=== PATIENT | female | born 1950 | race Caucasian/White ===

== ENCOUNTER → 2020-08-03 14:05 | Outpatient (CLI) | payer MEDICARE, BC, SELFPAY ==
--- NOTE | ~2020-08-03 | MM_ITS ---
EXAMINATION: MM screening bertha BI w stephanie HISTORY: Screening TECHNIQUE: Craniocaudal and mediolateral oblique 3-D tomosynthesis images were obtained and synthetic 2-D images were generated. CAD analysis was submitted and interpreted. COMPARISON: Comparison to multiple prior studies sequentially, with oldest reviewed study dated 04/11. BREAST PARENCHYMAL COMPOSITION: The breasts are almost entirely fatty. FINDINGS: There is no evidence of suspicious mass, calcification, or architectural distortion to sugg est malignancy in either breast. There has been no suspicious interval change. IMPRESSION: 1. No mammographic evidence of malignancy. 2. Recommend routine screening mammography in one year. BI-RADS Category 1: Negative Reviewed, dictated and finalized at location A. EXPORT LOGISTICS MANAGER
== END ==
PROVIDERS: Visit Provider Obstetrics & Gynecology Gynecology
DX: Z12.31 Encounter for screening mammogram for malignant neoplasm of breast (principal)
CPT/HCPCS: 77063; 77067

== ENCOUNTER → 2021-01-13 14:18 | Outpatient (CLI) | payer MEDICARE, BC, SELFPAY ==
--- NOTE | ~2021-01-13 | XR_ITS ---
XR lumbar spine 2-3V DATE: 01/13/2021 15:04 INDICATION: Back pain TECHNIQUE: AP, lateral, coned lateral lumbosacral views COMPARISON: None FINDINGS: Diffuse osteopenia. No fracture or bone destruction of the lumbar spine. There is moderately severe degenerative disc disease at L2-3, L3-4 and moderate degenerative disc dis ease at L4-5 and L5-S1. Grade 1 anterolisthesis at L3-4 due to degenerative change at the apophyseal joints. The sacroiliac joints appear normal. IMPRESSION: Osteopenia Multilevel degenerative disc disease Degenerative change at the apophyseal joints with associated minimal anterolisthesis at L3-4 Reviewed, dictated and finalized at location B. IMPRESSION: Osteopenia Multilevel degenerative disc disease Degenerative change at the apophyseal joints with associated minimal anterolist hesis at L3-4
--- NOTE | ~2021-01-13 | XR_ITS ---
XR chest 2V DATE: 01/13/2021 15:04 INDICATION: Cough TECHNIQUE: PA and lateral views COMPARISON: 06/13/2017 PA and lateral chest FINDINGS: Normal heart size. No hilar or mediastinal enlargement. No pulmonary infiltrate or consolidation, pleural effusion or pulmonary vascular congestion or pneumo thorax. There is mild discoid scarring in the anterior lower lung on the lateral view, not significantly meng ged since 06/13/2017. IMPRESSION: No active cardiopulmonary disease or significant change since 06/13/2017 Reviewed, dictated and finalized at location B.
== END ==
PROVIDERS: PCP Family Medicine; Visit Provider Physician Assistant
DX: R05 Cough (principal); M47.816 Spondylosis without myelopathy or radiculopathy, lumbar region
CPT/HCPCS: 71046; 72100

== ENCOUNTER → 2021-03-29 13:07 | Outpatient (CLI) | payer MEDICARE, BC, SELFPAY ==
--- NOTE | ~2021-03-29 | MR_ITS ---
EXAMINATION: MR lumbar spine wo con DATE: 03/29/2021 14:22 INDICATION: Sciatica, unspecified side. Low back pain. TECHNIQUE: Magnetic resonance imaging (MRI) of the lumbar spine was performed without intravenous con trast. Sequences included sagittal T2-weighted FSE, sagittal T2-weighted FS FSE, sagittal T1-weighted FSE, and axial T2-weighted FSE. COMPARISON: Lumbar spine MRI 04/10/2011 FINDINGS: Bone alignment is normal. Vertebral body heights are normal. There is severely decreased di sc height at L2-L3, moderately decreased disc height at L3-L4 and L4-L5, and severely decreased disc height at L5-S1 with endplate remodeling. There is ligamentum flavum hypertrophy at the disc levels f rom L2-L3 through L5-S1. The distal spinal cord signal intensity is normal. The conus medullaris is a t L1-L2. The following disc levels are specifically discussed: L1-L2: The disc does not extend beyond the endplate margin. There is mild bilateral facet joint osteo arthritis. There is no neural foraminal stenosis. There is no central canal stenosis. L2-L3: The disc is bulging and has an annular fissure. There is severe right and moderate left facet joint osteoarthritis. There is mild bilateral neural foraminal stenosis. There is mild central canal stenosis. L3-L4: The disc is bulging and has an annular fissure. There is severe bilateral facet joint osteoart hritis. There is mild bilateral neural foraminal stenosis. There is mild central canal stenosis. L4-L5: The disc is bulging and has an annular fissure. There is severe bilateral facet joint osteoart hritis. There is mild bilateral neural foraminal stenosis. There is mild central canal stenosis. L5-S1: The disc is bulging and has an annular fissure. There is severe bilateral facet joint osteoart hritis. There is mild right and moderate left neural foraminal stenosis. There is mild central canal stenosis. There is moderate stenosis of the lateral recesses. IMPRESSION: 1. Severe lumbar spondylosis, worsened from 04/10/2011. Reviewed, dictated and finalized at location A.
== END ==
PROVIDERS: PCP Family Medicine; Visit Provider Family Medicine
DX: M54.30 Sciatica, unspecified side (principal); M47.896 Other spondylosis, lumbar region
CPT/HCPCS: 72148

== ENCOUNTER → 2021-06-23 13:24 | Outpatient (CLI) | payer MEDICARE, BC, SELFPAY ==
--- NOTE | ~2021-06-23 | DEXA_ITS ---
Bone Density Report Name: Cuca More Age: 70 Sex: Female Ethnicity: White Date of : 1950 Indication: osteopenia; parental hip fracture; height loss; prior fracture; postmenopausal Referring Provider: Priyank Bansal Study: Bone densitometry was performed. Exam Date: June 23, 2021 Accession number: [id number] Bone Density: Region BMD T-score Z-score Classification AP Spine (L1, L4) 0.821 -2.0 0.2 Osteopenia Femoral Neck (Left) 0.642 -1.9 0.0 Osteopenia Total Hip (Left) 0.937 0.0 1.5 Normal Femoral Neck (Right) 0.673 -1.6 0.3 Osteopenia Total Hip (Right) 0.923 -0.2 1.4 Normal Total Hip Mean 0.930 -0.1 1.5 Normal World Health Organization criteria for BMD impression classify patients as: Normal (T-score at or above -1.0), Osteopenia (T-score between -1.0 and -2.5), or Osteoporosis (T-score at or below -2.5). 10-year Fracture Risk(1): Major Osteoporotic Fracture 26% Hip Fracture 7.0% Reported Risk Factors: [place] (), Neck BMD=0.642, BMI=30.9, previous fracture, parental fracture (1) FRAX(R) Version 3.08. Fracture probability calculated for an untreated patient. Fracture probability may be lower if the patient has received treatment. Previous Exams: Region Exam Age BMD T-score BMD Change BMD Change Date g/cm2 vs Baseline vs Previous AP Spine(L1, L4) 06/23/2021 70 0.821 -2.0 -0.119* -0.064* 06/19/2019 68 0.885 -1.4 -0.055* -0.045* 05/16/2017 66 0.930 -1.0 -0.010 0.028* 03/02/2015 64 0.902 -1.2 -0.038* 0.061* 01/03/2013 62 0.841 -1.8 -0.099* -0.008 09/02/2010 60 0.849 -1.7 -0.091* -0.033* 07/24/2007 56 0.882 -1.4 -0.059* -0.059* 06/16/2005 54 0.940 -0.9 Total Hip(Left) 06/23/2021 70 0.937 0.0 -0.071* 0.038* 06/19/2019 68 0.899 -0.3 -0.109* -0.001 05/16/2017 66 0.900 -0.3 -0.108* -0.071* 03/02/2015 64 0.971 0.2 -0.037* 0.100* 01/03/2013 62 0.870 -0.6 -0.138* 0.004 09/02/2010 60 0.867 -0.6 -0.141* 0.036* 07/24/2007 56 0.831 -0.9 -0.177* -0.177* 06/16/2005 54 1.008 0.5 Total Hip(Right) 06/23/2021 70 0.923 -0.2 -0.053* 0.032* 06/19/2019 68 0.891 -0.4 -0.085* -0.033* 05/16/2017 66 0.924 -0.2 -0.052* -0.039* 03/02/2015 64 0.962 0.2 -0.013 0.108* 01/03/2013 62 0.855 -0.7 -0.121* -0.037* 09/02/2010 60 0.891
== END ==
PROVIDERS: PCP Family Medicine; Visit Provider Family Medicine
DX: Z78.0 Asymptomatic menopausal state (principal); M85.88 Other specified disorders of bone density and structure, other site; M85.852 Other specified disorders of bone density and structure, left thigh; M85.851 Other specified disorders of bone density and structure, right thigh
CPT/HCPCS: 77080

== ENCOUNTER → 2021-12-02 12:59 | Outpatient (CLI) | payer MEDICARE, BC, SELFPAY ==
--- NOTE | ~2021-12-02 | MM_ITS ---
EXAMINATION: MM screening bertha BI w stephanie HISTORY: Screening TECHNIQUE: Craniocaudal and mediolateral oblique 3-D tomosynthesis images were obtained and synthetic 2-D images were generated. CAD analysis was submitted and interpreted. COMPARISON: Comparison to multiple prior studies sequentially, with oldest reviewed study dated 04/11. BREAST PARENCHYMAL COMPOSITION: Breast composition is almost entirely fatty FINDINGS: There is no evidence of suspicious mass, calcification, or architectural distortion to sugg est malignancy in either breast. There has been no suspicious interval change. IMPRESSION: 1. No mammographic evidence of malignancy. 2. Recommend routine screening mammography in one year. BI-RADS Category 1: Negative Reviewed, dictated and finalized at location A.
== END ==
PROVIDERS: PCP Family Medicine; Visit Provider Obstetrics & Gynecology Gynecology
DX: Z12.31 Encounter for screening mammogram for malignant neoplasm of breast (principal)
CPT/HCPCS: 77063; 77067

== ENCOUNTER 2022-04-05 01:36 | Day surgery (SDC) | payer MEDICARE, BC, SELFPAY ==
[2022-01-30 13:55] VITALS: BMI 29.1
[2022-03-20 15:11] VITALS: BMI 28.3
[2022-04-05 09:19] VITALS: BP 121/72; PULSE 88; RESP 18; TEMP 36.4; O2SAT 100
[2022-04-05] MEDS: LACTATED RINGERS 1,000 ML 150 ML IV CONT (09:25)
--- NOTE | 2022-04-05 09:41 | PM.HPGS ---
History of Present Illness History of Present Illness Consent: Risks, benefits, and alternatives have been discussed and questions answered. Patient agrees to proceed with procedure. Chief complaint: neoplasm screening Narrative: Cuca More is a 71 year old female referred for colon cancer screening. Her last colonoscopy was 9 years ago. She has a history of polyps. Review of Systems Review of Systems: All systems reviewed & are unremarkable except as noted in HPI and below PMFSH Past Medical History Medical History Acute left-sided low back pain with sciatica ETD (eustachian tube dysfunction) Mild cognitive impairment Status post fall Family History Family History Father Carcinoma of colon Other Family history of malignant neoplasm Social History Social History Social History: Single Smoking status: Never smoker Second hand tobacco smoke exposure: No Alcohol intake: current Alcohol use details: rarely Substance use: never Substance use type: does not use Living arrangements: alone Gender identity (if verbalized by the patient): Female Sexual Orientation (if Verbalized by the Patient): Straight or Heterosexual Spiritual care concerns: No Meds Home Medications and Allergies Home Medications Medication Instructions Recorded Confirmed Type levothyroxine 50 mcg tablet 50 mcg PO QAM #1 tablet 02/02/20 03/20/22 Rx (Euthyrox) alendronate 70 mg tablet 70 mg PO WEEKLY #1 tablet 10/26/21 03/20/22 Rx cholecalciferol (vitamin D3) 1,250 1,250 mcg PO WEEKLY #7 caps 10/26/21 03/20/22 Rx mcg (50,000 unit) capsule escitalopram oxalate 10 mg tablet 10 mg PO DAILY #90 tabs 12/05/21 03/20/22 Rx (Lexapro) atorvastatin 10 mg tablet 10 mg PO DAILY #30 tabs 02/28/22 03/20/22 Rx cyclobenzaprine 10 mg tablet See Rx Instructions .Route 03/15/22 03/20/22 Rx .COMPLEX #20 tabs donepezil 5 mg tablet (Aricept) 5 mg PO QHS #30 tabs 03/22/22 04/05/22 Rx Allergies Allergy/AdvReac Type Severity Reaction Status Date / Time No Known Allergies Allergy Verified 04/05/22 09:18 Vital Signs Vital Signs - 24 hr 04/05/22 09:19 Temperature 36.4 C Pulse Rate 88 Respiratory Rate 18 Blood Pressure 121/72 Pulse Oximetry 100 Oxygen Delivery Room Air Exam Const: General: alert Orientation/consciousness: patient oriented x3 Resp: Auscultation: clear to auscultation bilaterally Cardio: Rhythm: regular rhythm GI: GI Palp: Yes Soft to palpation and No Tenderness to palpation present (GI) Neuro: General: patient oriented x3 Assessment and Plan Assessment and plan (1) Colon cancer screening: Code(s): Z12.11 - Encounter for screening for malignant neoplasm of colon Status: Acute Assessment and Plan: Colonoscopy with possible biopsy or polypectomy or cautery or injection of substances.
--- NOTE | 2022-04-05 11:05 | P.PNAN_ITS ---
Anes - Initial Pre Proc Eval Procedure: Operation Date: 04/05/22 10:30 Proposed Procedures p Screening Colonoscopy - Matias Zamarripa MD Date/Time: 04/05/22 11:05 Surgeon: Matias Zamarripa MD Pre Op Diagnosis: neoplasm screening Patient Data Age: 71 Gender: F Height: 1.57 m Weight: 69.8 kg Last Vital Signs Temp 97.6 F 04/05/22 09:19 Pulse 88 04/05/22 09:19 Resp 18 04/05/22 09:19 BP 121/72 04/05/22 09:19 Pulse Ox 100 04/05/22 09:19 O2 Del Method Room Air 04/05/22 09:19 Allergies Allergy/AdvReac Type Severity Reaction Status Date / Time No Known Allergies Allergy Verified 04/05/22 09:18 Home Medications Medication Instructions Recorded Confirmed Type levothyroxine 50 mcg tablet 50 mcg PO QAM #1 tablet 02/02/20 03/20/22 Rx (Euthyrox) alendronate 70 mg tablet 70 mg PO WEEKLY #1 tablet 10/26/21 03/20/22 Rx cholecalciferol (vitamin D3) 1,250 1,250 mcg PO WEEKLY #7 caps 10/26/21 03/20/22 Rx mcg (50,000 unit) capsule escitalopram oxalate 10 mg tablet 10 mg PO DAILY #90 tabs 12/05/21 03/20/22 Rx (Lexapro) atorvastatin 10 mg tablet 10 mg PO DAILY #30 tabs 02/28/22 03/20/22 Rx cyclobenzaprine 10 mg tablet See Rx Instructions .Route 03/15/22 03/20/22 Rx .COMPLEX #20 tabs donepezil 5 mg tablet (Aricept) 5 mg PO QHS #30 tabs 03/22/22 04/05/22 Rx Patient hx anesthesia problems: none Family hx anesthesia problems: none Results Review: All pre-operative results and documents have been reviewed as part of the pre- operative evaluation. [facility] Past Medical History Medical History Acute left-sided low back pain with sciatica ETD (eustachian tube dysfunction) Mild cognitive impairment Status post fall Family History Family History Father Carcinoma of colon Other Family history of malignant neoplasm Social History Social History Social History: Single Smoking status: Never smoker Second hand tobacco smoke exposure: No Alcohol intake: current Alcohol use details: rarely Substance use: never Substance use type: does not use Living arrangements: alone Gender identity (if verbalized by the patient): Female Sexual Orientation (if Verbalized by the Patient): Straight or Heterosexual Spiritual care concerns: No Anes - Eval Final PreProcedure Day of Procedure 04/05/22 11:05 Patient weight: normal Heart: regular rate and rhythm Lungs: clear to auscultation Airway: Mallampati scale class II Neurological: alert and oriented Last oral intake: >/= 8 hours ASA classification: II Emergent: no Anesthetic plan: proceed Anesthesia type and monitoring: general GIVS and standard monitoring Results Review: All pre-operative results and documents have been reviewed as part of the pre- operative evaluation. Informed Consent: The patient's anesthetic plan and its attendant risks and benefits were discussed with the patient/family/POA. Questions were solicited and answers provided to the satisfaction of the patient/family/POA.
[2022-04-05] MEDS: SIMETHICONE ORAL SUSPENSION 20 MG/0.3 ML 30 ML BOTTLE 0.6 ML IRRIGATION (11:17)
[2022-04-05 11:26] VITALS: BP 109/87; PULSE 81; RESP 18; O2SAT 99
[2022-04-05 11:36] VITALS: BP 115/89; PULSE 80; RESP 17; O2SAT 99
[2022-04-05 11:46] VITALS: BP 118/89; PULSE 79; RESP 18; O2SAT 99
== END 2022-04-05 12:03 | disposition home or self-care (01) ==
PROVIDERS: PCP Family Medicine; Visit Provider Internal Medicine Gastroenterology
PROC: 0DJD8ZZ Inspection of Lower Intestinal Tract, Via Natural or Artificial Opening Endoscopic (ICD-10-PCS; CPT 45378; principal; 2022-04-05 10:30)
DX: Z12.11 Encounter for screening for malignant neoplasm of colon (principal); K57.30 Diverticulosis of large intestine without perforation or abscess without bleeding
CPT/HCPCS: G0121; J2704; J7120

== ENCOUNTER 2023-01-03 14:41 | Outpatient (CLI) | payer MEDICARE, BC, SELFPAY ==
--- NOTE | ~2023-01-03 | CT_ITS ---
EXAMINATION: CT abdomen pelvis wo con DATE: 01/03/2023 15:12 INDICATION: Lower abdominal pain. Rebound tenderness. TECHNIQUE: Computed tomography (CT) of the abdomen and pelvis was performed without intravenous contr ast. The dose-length product was 351.24 mGy-cm. Automated exposure control and iterative reconstructi on technique were employed. COMPARISON: CT dated 10/03/2011 FINDINGS: Lung bases are unremarkable. Heart size normal. No significant pleural or pericardial effus ion. There is a fat-containing umbilical hernia. The liver, spleen, pancreas, adrenal glands and left kidney are unremarkable. There is a 3 mm nonobstructing right renal stone. Colonic diverticulosis. T here is inflammatory change surrounding the distal sigmoid colon with adjacent fluid, suspicious for diverticulitis. There is a small focus of gas in the cul-de-sac which may be extraluminal, suspicious for perforation. No cannot exclude abscess formation without contrast. IMPRESSION: 1. Inflammatory change surrounding the distal sigmoid colon with adjacent fluid, suspicious for diver ticulitis. Small focus of gas in the cul-de-sac which may be extraluminal, suspicious for perforation . No cannot exclude abscess formation without contrast. 2: Nonobstructing right nephrolithiasis. Reviewed, dictated and finalized at location B. IMPRESSION: 1. Inflammatory change surrounding the distal sigmoid colon with adjacent fluid , suspicious for diverticulitis. Small focus of gas in the cul-de-sac which may be extraluminal, suspicious for perforation. No cannot exclude abscess formati on without contrast. 2: Nonobstructing right nephrolithiasis.
== END 2023-01-03 14:42 | disposition home or self-care (01) ==
PROVIDERS: PCP Family Medicine; Visit Provider Physician Assistant
DX: R10.30 Lower abdominal pain, unspecified (principal); N20.0 Calculus of kidney
CPT/HCPCS: 74176

== ENCOUNTER 2023-01-15 12:48 | Outpatient (CLI) | payer MEDICARE, BC, SELFPAY ==
--- NOTE | ~2023-01-15 | CT_ITS ---
EXAMINATION: CT abdomen pelvis w con DATE: 01/15/2023 13:20 INDICATION: Diverticulitis of intestine, part unspecified. TECHNIQUE: Computed tomography (CT) of the abdomen and pelvis was performed with 100 mL Omnipaque 350 intravenous contrast. Automated exposure control and iterative reconstruction technique were employe d. The dose-length product was 465.78 mGy-cm. COMPARISON: CT abdomen and pelvis 01/03/2023 FINDINGS: The visualized portions of the lung bases demonstrate mild atelectasis. A calcified left suman ng nodule and calcified left hilar lymph nodes are consistent with old granulomatous disease. No pleu ral effusion. The heart size is normal. No pericardial effusion. The liver, gallbladder, spleen, panc reas, and adrenal glands are normal. There is a 3 mm stone in right kidney. There is a 7 mm cyst in l eft kidney. There are scattered diverticula in the colon. There is wall thickening of sigmoid colon w ith surrounding fat stranding. There is a 6.9 x 2.8 x 3.3 cm perisigmoid abscess. There are no pathol ogically enlarged lymph nodes. There is no free intraperitoneal fluid. There is severe thoracic and l umbar spondylosis. IMPRESSION: 1. Sigmoid diverticulitis with 6.9 x 2.8 x 3.3 cm perisigmoid abscess. Reviewed, dictated and finalized at location A.
[2023-01-15 13:15] LABS: Estimated Glomerular Filt Rate 49
== END 2023-01-15 12:49 | disposition home or self-care (01) ==
PROVIDERS: PCP Family Medicine; Visit Provider Physician Assistant
DX: K57.32 Diverticulitis of large intestine without perforation or abscess without bleeding (principal)
CPT/HCPCS: 74177; Q9967

== ENCOUNTER 2023-01-16 13:55 | Inpatient (IN) | payer MEDICARE, BC, SELFPAY ==
--- NOTE | ~2023-01-16 | CT_ITS ---
EXAMINATION: CT guide absc cath placement DATE: 01/17/2023 14:14 INDICATION: Sigmoid diverticulitis with intraperitoneal abscess TECHNIQUE: The procedure including the risks and benefits was discussed with the patient. Risks discu ssed included bleeding, infection, organ injury and allergic reaction. The patient understood the ris ks and benefits and agreed to proceed. The patient was confirmed to be receiving appropriate antibiot ic coverage. [employer] CT image of the pelvis was obtained following administration of 100 mL Omnipaque-3 50 intravenous contrast. A left anterior pelvic approach was chosen. The skin overlying the anterior left pelvis was prepped and draped in usual sterile fashion. Anesthetic was administered with 1% lid ocaine subcutaneously. Conscious sedation was provided with a total of 100 mcg fentanyl. An 18-gauge trochar needle was advanced into the fluid collection utilizing CT guidance. A J-wire was advanced in to the fluid collection with position confirmed by CT . Utilizing Seldinger technique the needle was removed over the wire and the tract serially dilated to 9 Fr. An 8.5 Fr catheter was over the wire in serted into the peritoneal fluid collection and the loop formed and locked. After confirmation of pos itioning by CT the wire was removed and the catheter stitched to the skin. Antibiotic appointment and a sterile dressing were applied. An additional adhesive fixation device was applied. 20 mm of fluid was aspirated for testing and the catheter was then attached to suction drainage. There were no immed iate complications. The dose-length product was 1087.15 mGy-cm. FINDINGS: CT images demonstrate the catheter within the fluid collection. 20 mL of opaque purulent ap pearing gunn-colored fluid was aspirated for testing. IMPRESSION: 1. Successful CT-guided pelvic abscess drainage. 2. 20 mL fluid was sent for aerobic and anaerobic cultures. 3. The catheter will be managed by Dr. Benavides. Reviewed, dictated and finalized at location A.
[2023-01-16 15:36] VITALS: BP 108/58; PULSE 91; RESP 16; TEMP 37.2; O2SAT 98
--- NOTE | 2023-01-16 15:43 | ADMGEN ---
This patient, Cuca More, was admitted to 2 Medical Room 257-01. Patient/family oriented to hospital policies and general routines including ID bracelet, bed and alarms, visiting hours, pain management, procedures, bathroom and other care routines, personal items, smoking policy, room service/diet, and visiting hours. Information on how to activate the Rapid Response Team has been discussed. Patient/Family are encouraged to report perceived risks to care and to ask questions if they do not understand what they are told or what they should do.
--- NOTE | 2023-01-16 15:45 | PM.CNGS ---
Assessment and Plan Assessment and plan (1) Abscess of sigmoid colon due to diverticulitis: Code(s): K57.20 - Diverticulitis of large intestine with perforation and abscess without bleeding Status: Acute Assessment and Plan: will setup for CT guided perc drainage, cont abx History of Present Illness Consult details Consult date: 01/16/23 Reason for consult: abdominal pain Requesting physician: Bill Ledesma MD Narrative: The patient is a 72-year-old female presenting to the hospital with complicated diverticulitis and abscess. The patient reports that her symptoms started on January [address] scan at that time showed diverticulitis with micro perforation. The patient has been being treated with outpatient p.o. antibiotics. The patient reports compliance to or antibiotics so though they upset her stomach so she switched the antibiotics to once daily. The patient reports her pain is largely unchanged and is more intermittent in nature. The patient reports decreased appetite and constipation. The patient denies any fevers or chills, nausea or vomiting. Repeat by her PCP today showed diverticulitis with now an adjacent abscess. Review of Systems Constitutional: Constitutional: Reports as per HPI, Denies anorexia, Denies chills, Reports fatigue, Denies fever(s), Reports lethargy, Denies malaise, Reports poor appetite, Denies weakness, Denies weight gain and Denies weight loss Eyes: Eyes: Reports no additional eye complaints ENT: Reports system reviewed and no additional complaints, except as documented Cardiovascular: Cardiovascular: Reports no additional cardiovascular complaints Respiratory: Respiratory: Reports no additional respiratory complaints Gastrointestinal: Gastrointestinal: Reports as per HPI, Reports abdominal pain, Reports bloating, Reports change in bowel habits, Reports constipation, Reports GI cramping, Denies nausea and Denies vomiting Genitourinary: Genitourinary: Reports no additional female genitourinary complaints Musculoskeletal: Musculoskeletal: Reports no additional musculoskeletal complaints Integumentary/Breasts: Skin/Breast: Reports system reviewed and no additional complaints, except as docu Neurologic: Reports system reviewed and no additional complaints, except as documented Psychiatric: Psychiatric: Reports no additional psychiatric complaints Endocrine: Endocrine: Reports no additional endocrine complaints Hematologic/Lymphatic: Hematologic/Lymphatic: Reports no additional hematologic/lymphatic complaints Allergic/Immunologic: Allergic/Immunologic: Reports no additional allergic/immunologic complaints PMFSH Past Medical History Medical History Acute left-sided low back pain with sciatica Depression ETD (eustachian tube dysfunction) Mild cognitive impairment Status post fall Family History Family History Father Carcinoma of colon Other Family history of malignant neoplasm Social History Social History Social History: Single Smoking status: Never smoker Second hand tobacco smoke exposure: No Alcohol intake: current Drinks per week: 1 Alcohol use details: wine occasionally Substance use: never Substance use type: does not use Living arrangements: alone Occupation/Education: retired Gender identity (if verbalized by the patient): Female Sexual Orientation (if Verbalized by the Patient): Straight or Heterosexual Spiritual care concerns: No Meds Home Medications and Allergies Home Medications Medication Instructions Recorded Confirmed Type levothyroxine 50 mcg tablet 50 mcg PO QAM #1 tablet 02/02/20 01/15/23 Rx (Euthyrox) alendronate 70 mg tablet 70 mg PO WEEKLY #1 tablet 10/26/21 01/15/23 Rx cholecalciferol (vitamin D3) 1,250 1,250 mcg PO WEEKLY #7 caps 0
[2023-01-16 15:47] VITALS: BMI 26.9
--- NOTE | 2023-01-16 16:05 | PM.IMHP ---
H&P: HPI History of Present Illness Date/Time: 01/16/23 16:05 Chief Complaint: abdominal pain Narrative: patient originally is being seen as an outpatient basis for left lower quadrant pain diagnosed with diverticulitis with CT abdomen pelvis done 01/03/2023. On the CT there was small focus of gas in cul-de-sac which may be extraluminal suspicious for perforation. History with Flagyl and Cipro outpatient basis. However the patient was only taking once a day Cipro and Flagyl due to abdominal pain after taking antibiotic. She also reports some on and off constipation no nausea vomiting fever chills. She presented to clinic again yesterday and a repeat CT was ordered which showed persistent diverticulitis with formation of abscess. In this setting I was called by her PCP to directly admitted to the hospital for failed outpatient treatment and surgical consultation. She reports abdominal discomfort but has been tolerating diet without any issues. She denies any fever or chills Review of Systems Review of Systems: - CONSTITUTIONAL: Denies weight loss, fever and chills. - HEENT: Denies changes in vision and hearing - RESPIRATORY: Denies SOB and cough. - CV: Denies palpitations and CP. - GI: reports abdominal pain, denies nausea, vomiting and diarrhea. - : Denies dysuria and urinary frequency. - MSK: Denies myalgia and joint pain. - SKIN: Denies rash and pruritus. - NEUROLOGICAL: Denies headache and syncope. - PSYCHIATRIC: Denies recent changes in mood. Denies anxiety and depression. [facility] Past Medical History Medical History Acute left-sided low back pain with sciatica Depression ETD (eustachian tube dysfunction) Mild cognitive impairment Status post fall Family History Family History Father Carcinoma of colon Other Family history of malignant neoplasm Social History Social History Social History: Single Smoking status: Never smoker Second hand tobacco smoke exposure: No Alcohol intake: current Drinks per week: 1 Alcohol use details: wine occasionally Substance use: never Substance use type: does not use Lack of Transportation: No Lack of Food: Never True Current Housing: I Have Housing Concerned About Future Housing: No Difficulty Paying Gas/Electric Bills: No Difficulty Paying for Meds: No Currently Unemployed: No Education: High School Diploma/GED Difficulty w/ Childcare or Family Care: No Living arrangements: alone Occupation/Education: retired Gender identity (if verbalized by the patient): Female Sexual Orientation (if Verbalized by the Patient): Straight or Heterosexual Spiritual care concerns: No Meds Home Medications and Allergies Home Medications Medication Instructions Recorded Confirmed Type cholecalciferol (vitamin D3) 1,250 1,250 mcg PO WEEKLY #7 caps 10/26/21 01/16/23 Rx mcg (50,000 unit) capsule donepezil 5 mg tablet (Aricept) 5 mg PO QHS #90 tabs 07/17/22 01/16/23 Rx escitalopram oxalate 20 mg tablet 20 mg PO DAILY #90 tabs 12/27/22 01/16/23 Rx ciprofloxacin HCl 500 mg tablet 500 mg PO Q12H #20 tabs 01/03/23 01/16/23 Rx atorvastatin 10 mg tablet 10 mg PO DAILY 01/16/23 01/16/23 History cyclobenzaprine 10 mg tablet 10 mg PO PRN PRN Leg cramps 01/16/23 01/16/23 History levothyroxine 50 mcg tablet 50 mcg PO DAILY 01/16/23 01/16/23 History (Euthyrox) metronidazole 500 mg tablet See Rx Instructions .Route .COMPLEX 01/16/23 01/16/23 History Allergies Allergy/AdvReac Type Severity Reaction Status Date / Time No Known Allergies Allergy Verified 01/15/23 10:54 Vital Signs Vital Signs - 24 hr 01/16/23 15:36 Temperature 99 F Pulse Rate 91 Respiratory Rate 16 Blood Pressure 108/58 L Pulse Oximetry 98 Exam Narrative: GENERAL: The patie
[2023-01-16 16:12] LABS: Alanine Aminotransferase 16 U/L (6-35); Albumin Level 4.1 g/dL (3.5-5.1); Alkaline Phosphatase 121 U/L (38-126); Anion Gap 11 mmol/L (8-16); Aspartate Amino Transferase 26 U/L (14-36); Bilirubin,Total 0.5 mg/dL (0.2-1.3); Blood Urea Nitrogen 23 mg/dL (7-17); Calcium 9.4 mg/dL (8.4-10.2); Carbon Dioxide 23 mmol/L (22-30); Chloride 104 mmol/L (98-107); Estimated CRCL calculation 50 ml/min; Estimated Glomerular Filt Rate > 60; Glucose 89 mg/dL (65-110); Magnesium 2.3 mg/dL (1.6-2.3); Potassium 4.2 mmol/L (3.4-5.0); Sodium 138 mmol/L (137-145)
[2023-01-16 16:21] LABS: Basophils Absolute Auto 0.1 K/mm3 (0.0-0.1); Basophils Percent Auto 0.3 % (0.2-1.2); Eosinophils Absolute Auto 0.1 K/mm3 (0-0.3); Eosinophils Percent Auto 0.3 % (0-4.4); Hematocrit 36.5 % (37.0-47.0); Hemoglobin 11.6 g/dL (12.0-15.0); Immature Granulocyte Absolute 0.07 K/mm3 (0.00-0.031); Immature Granulocyte Percent A 0.5 % (0-0.5); Lymphocytes Absolute Auto 1.39 K/mm3 (0.9-3.2); Lymphocytes Percent Auto 9.4 % (18.3-44.2); Mean Corpuscular HGB Conc 31.8 g/dl (32-36); Mean Corpuscular Hemoglobin 30.6 pg (26-34); Mean Corpuscular Volume 96.3 fl (80-100); Mean Platelet Volume 8.8 fl (7.4-10.4); Monocytes Absolute Auto 1.4 K/mm3 (0.1-0.6); Monocytes Percent Auto 9.4 % (2.6-8.5); Neutrophils Absolute Auto 11.8 K/mm3 (1.3-6.7); Neutrophils Percent Auto 80.1 % (45.5-73.1); Platelet Count Result 358 k/mm3 (150-375); Red Blood Count 3.79 M/mm3 (4.2-5.4); Red Cell Distribution Width 13.8 % (11.5-14.5); White Blood Count 14.7 K/mm3 (4.5-10.0)
[2023-01-16 16:40] LABS: Lactic Acid Reflex 1.2 mmol/L (0.7-2.0)
[2023-01-16] MEDS: PIPERACILLN/TAZ 3.375GM/NS50ML 3.375 GM/50 ML BAG IVPB (18:36)
[2023-01-16 19:31] VITALS: PULSE 91; RESP 16; O2SAT 98
[2023-01-16 19:32] VITALS: BP 117/48; PULSE 86; RESP 20; TEMP 36.7; O2SAT 100
[2023-01-16 19:43] LABS: INR 1.1; Prothrombin Time 14.8 Seconds (11.1-14.7)
[2023-01-16 19:44] LABS: Partial Thromboplastin Time 24.3 SECONDS (22.3-36.8)
[2023-01-16 20:03] LABS: Appearance Urine Clear (Clear); Bacteria Urine None Seen /hpf; Bilirubin Urine Negative (Negative); Blood Urine Trace (Negative); Color Urine Yellow (Yellow); Glucose Urine UA Negative (Negative); Hyaline Casts Urine Present /lpf; Ketones Urine 1+ mg/dL (Negative); Leukocyte Esterase Ur Negative LEU/UL (Negative); Nitrate Urine Negative (Negative); Protein Urine Trace mg/dL (Negative); Squamous Epithelial Cell Urine None seen /hpf (Few); Urobilinogen Urine 0.2 mg/dL (<2.0); WBC Urine 0-5 /hpf; pH Urine 5.5 (5.0-9.0)
[2023-01-16 20:19] LABS: Add Urine Microscopic? YES
[2023-01-16] MEDS: DONEPEZIL HCL 5 MG TABLET PO (20:53)
[2023-01-16] MEDS: CYCLOBENZAPRINE HCL 10 MG TABLET PO (20:57)
[2023-01-17] VITALS (20 sets, daily range): BP systolic 98–114; BP diastolic 47–74; PULSE 80–91; RESP 15–23; TEMP 36.8–36.9; O2SAT 93–100
[2023-01-17] MEDS: PIPERACILLN/TAZ 3.375GM/NS50ML 3.375 GM/50 ML BAG IVPB ×5 (00:04→23:46)
[2023-01-17] MEDS: ACETAMINOPHEN 325 MG TABLET 650 MG PO ×2 (00:05→20:08)
[2023-01-17] MEDS: ATORVASTATIN 10 MG TABLET PO (08:37)
[2023-01-17] MEDS: ESCITALOPRAM OXALATE 10 MG TABLET 20 MG PO (08:37)
--- NOTE | 2023-01-17 10:08 | PM.PNGS ---
Progress Note: A&P Assessment and Plan (1) Abscess of sigmoid colon due to diverticulitis: Code(s): K57.20 - Diverticulitis of large intestine with perforation and abscess without bleeding Status: Acute Assessment and Plan: setup for perc drainage today, cont abx, ok to start clears after the procedure Subjective Subjective Date/Time Seen: 01/17/23 10:08 Interval history: feels about the same, still c LLQ, pelvic pressure/pain Review of Systems Review of Systems: All systems reviewed & are unremarkable except as noted in HPI and below Exam Const: General: cooperative, no acute distress and uncomfortable Resp: Auscultation: clear to auscultation bilaterally Cardio: Rate: regular rate Rhythm: regular rhythm GI: Inspection: normal to inspection, distended and no incisions GI Palp: Yes abdominal tenderness, Yes Soft to palpation, Yes Tenderness to palpation present (GI), No Guarding due to palpation present (GI) and No Rigid due to palpation Objective Data Vital Signs Vital Signs: Vital Signs - 24 hr 01/16/23 15:36 01/16/23 18:44 01/16/23 19:31 Temperature 37.2 C Pulse Rate 91 91 Respiratory Rate 16 16 Blood Pressure 108/58 L Pulse Oximetry 98 98 Oxygen Delivery Room Air Room Air 01/16/23 19:32 01/17/23 04:24 Temperature 36.7 C 36.8 C Pulse Rate 86 82 Respiratory Rate 20 20 Blood Pressure 117/48 L 110/53 L Pulse Oximetry 100 98 Oxygen Delivery Intake/Output Intake/Output: Intake & Output 01/14/23 01/15/23 01/16/23 01/17/23 23:59 23:59 23:59 23:59 Intake Total 390 50 Output Total 200 700 Balance 190 -650 Meds/Results Medications: Active Medications Generic Name Dose Route Start Last Admin Trade Name Freq PRN Reason Stop Dose Admin Acetaminophen 650 mg 01/16/23 14:25 01/17/23 00:05 Acetaminophen 325 Mg Tablet PO 650 mg Q4H PRN Administration Mild Pain (1-3) or Fever Atorvastatin Calcium 10 mg 01/17/23 09:00 01/17/23 08:37 Atorvastatin 10 Mg Tablet PO 10 mg DAILY [facility] Administration Cyclobenzaprine HCl 10 mg 01/16/23 16:49 01/16/23 20:57 Cyclobenzaprine Hcl 10 Mg Tablet PO 10 mg PRN PRN Administration Leg cramps Donepezil HCl 5 mg 01/16/23 21:00 01/16/23 20:53 Donepezil Hcl 5 Mg Tablet PO 5 mg QHS [facility] Administration Enoxaparin Sodium 40 mg 01/17/23 09:00 01/17/23 08:40 Enoxaparin 40 Mg/0.4 Ml Syringe SUB-Q Not Given DAILY [facility] Ergocalciferol 50,000 units 01/23/23 09:00 Ergocalciferol 50,000 Units Capsule PO Mo@0900 [facility] Escitalopram Oxalate 20 mg 01/17/23 09:00 01/17/23 08:37 Escitalopram Oxalate 10 Mg Tablet PO 20 mg DAILY [facility] Administration Piperacillin/Tazobactam/Dextrose 3.375 gm in 50 mls @ 100 mls/hr 01/16/23 14:30 01/17/23 05:09 Zosyn 3.375 Gm/Ns 50 Ml IVPB 100 mls/hr Q6HR [facility] Administration Levothyroxine Sodium 50 mcg 01/17/23 06:30 01/17/23 05:00 Levothyroxine Sodium 50 Mcg Tablet PO Not Given DAILY@0630 [facility] Morphine Sulfate 2 mg 01/16/23 14:25 Morphine Sulfate (*Crx) 2 Mg/Ml Inj IV PUSH Q4H PRN Pain Rated 7-10 Ondansetron HCl 4 mg 01/16/23 14:25 Ondansetron Inj 4 Mg/2 Ml Vial IV PUSH Q6H PRN Nausea And Vomiting Labs Labs: Laboratory Results - last 24 hr 01/16/23 01/16/23 01/16/23 15:41 16:14 19:10 WBC 14.7 H RBC 3.79 L Hgb 11.6 L Hct 36.5 L MCV 96.3 MCH 30.6 MCHC 31.8 L RDW 13.8 Plt Count 358 MPV 8.8 Immature Gran % (Auto) 0.5 Neut % (Auto) 80.1 H Lymph % (Auto) 9.4 L Person % (Auto) 9.4 H Eos % (Auto) 0.3 Baso % (Auto) 0.3 Lymph # (Auto) 1.39 Person # (Auto) 1.4 H Eos # (Auto) 0.1 Baso # (Auto) 0.1 Abs Immat Gran (auto) 0.07 H Absolute Neuts (auto) 11.8 H Absolute Nucleated RBC 0.0 Nucleated RBC % 0.0 PT 14.8 H INR 1.1 APTT 24.3 Sodium 138 Potassium 4.2 Chloride 104 Carbon
--- NOTE | 2023-01-17 11:18 | PM.IMPN ---
Progress Note: A&P Assessment and Plan (1) Abscess of sigmoid colon due to diverticulitis: Code(s): K57.20 - Diverticulitis of large intestine with perforation and abscess without bleeding Status: Acute Assessment and Plan: Continue IV antibiotics. General surgery consulted. Plan for CT-guided drainage by IR noted (2) Mixed hyperlipidemia: Code(s): E78.2 - Mixed hyperlipidemia Status: Acute Assessment and Plan: continue statin (3) JACOB (generalized anxiety disorder): Code(s): F41.1 - Generalized anxiety disorder Status: Acute Assessment and Plan: continue home medication (4) Acquired hypothyroidism: Code(s): E03.9 - Hypothyroidism, unspecified Status: Acute Assessment and Plan: continue levothyroxine (5) Depression: Code(s): F32.A - Depression, unspecified Status: Acute Assessment and Plan: continue home medication Subjective Date/time seen: 01/17/23 11:18 Interval history: patient reports pain in right lower abdomen. Review of Systems Review of Systems: All systems reviewed & are unremarkable except as noted in HPI and below Exam Narrative: GENERAL: The patient is well developed, not in acute distress HEENT: Nonicteric sclerae, PERRLA, EOMI. Oropharynx clear. Moist mucous membranes. Conjunctivae appear well perfused. CHEST: Chest wall is nontender. HEART: Regular rate and rhythm without murmur, rubs, or gallops LUNGS: Clear to auscultation bilaterally. no respiratory distress ABDOMEN: Soft, positive bowel sounds, mild tenderness in suprapubic and left lower quadrantr, no organomegaly. SKIN: No rash, no excessive bruising, petechiae, or purpura. NEUROLOGIC: Cranial nerves II-XII intact, alert and oriented x 3, no gross motor deficits EXTREMITIES: no edema, cyanosis or clubbing Objective Data Vital Signs Vital Signs: Vital Signs - 24 hr 01/16/23 15:36 01/16/23 18:44 01/16/23 19:31 Temperature 99 F Pulse Rate 91 91 Respiratory Rate 16 16 Blood Pressure 108/58 L Pulse Oximetry 98 98 Oxygen Delivery Room Air Room Air 01/16/23 19:32 01/17/23 04:24 01/17/23 08:37 Temperature 98.0 F 98.3 F Pulse Rate 86 82 Respiratory Rate 20 20 Blood Pressure 117/48 L 110/53 L Pulse Oximetry 100 98 Oxygen Delivery Room Air Intake/Output Intake/Output: Intake & Output 01/14/23 01/15/23 01/16/23 01/17/23 23:59 23:59 23:59 23:59 Intake Total 390 / 390 50 / 50 Output Total 200 / 200 700 / 700 Balance 190 / 190 -650 / -650 Meds/Results Medications: Active Medications Generic Name Dose Route Start Last Admin Trade Name Freq PRN Reason Stop Dose Admin Acetaminophen 650 mg 01/16/23 14:25 01/17/23 00:05 Acetaminophen 325 Mg Tablet PO 650 mg Q4H PRN Administration Mild Pain (1-3) or Fever Atorvastatin Calcium 10 mg 01/17/23 09:00 01/17/23 08:37 Atorvastatin 10 Mg Tablet PO 10 mg DAILY [facility] Administration Cyclobenzaprine HCl 10 mg 01/16/23 16:49 01/16/23 20:57 Cyclobenzaprine Hcl 10 Mg Tablet PO 10 mg PRN PRN Administration Leg cramps Donepezil HCl 5 mg 01/16/23 21:00 01/16/23 20:53 Donepezil Hcl 5 Mg Tablet PO 5 mg QHS [facility] Administration Enoxaparin Sodium 40 mg 01/17/23 09:00 01/17/23 08:40 Enoxaparin 40 Mg/0.4 Ml Syringe SUB-Q Not Given DAILY [facility] Ergocalciferol 50,000 units 01/23/23 09:00 Ergocalciferol 50,000 Units Capsule PO Mo@0900 [facility] Escitalopram Oxalate 20 mg 01/17/23 09:00 01/17/23 08:37 Escitalopram Oxalate 10 Mg Tablet PO 20 mg DAILY [facility] Administration Piperacillin/Tazobactam/Dextrose 3.375 gm in 50 mls @ 100 mls/hr 01/16/23 14:30 01/17/23 05:09 Zosyn 3.375 Gm/Ns 50 Ml IVPB 100 mls/hr Q6HR [facility] Administration Levothyroxine Sodium 50 mcg 01/17/23 06:30 01/17/23 05:00 Levothyroxine Sodium 50 Mcg Tablet PO Not Given DAILY@0630 [facility] Morphine Sulfate 2
--- NOTE | 2023-01-17 14:30 | SUR.OPER ---
DRAINAGE NOTED TO BE LACY TO PINK/RED CREAMY COLOR.
--- NOTE | 2023-01-17 14:31 | WPDMODSED ---
Moderate Sedation Note-Pt Data Patient Data Diagnosis: perforated sigmoid diverticulitis with abscess Present Complaint: left pelvic pain/tenderness. Procedure to be performed/Plan: ct guided abscess drain placement. Allergies Allergy/AdvReac Type Severity Reaction Status Date / Time No Known Allergies Allergy Verified 01/15/23 10:54 Home Medications Medication Instructions Recorded Confirmed Type cholecalciferol (vitamin D3) 1,250 1,250 mcg PO WEEKLY #7 caps 10/26/21 01/16/23 Rx mcg (50,000 unit) capsule donepezil 5 mg tablet (Aricept) 5 mg PO QHS #90 tabs 07/17/22 01/16/23 Rx escitalopram oxalate 20 mg tablet 20 mg PO DAILY #90 tabs 12/27/22 01/16/23 Rx ciprofloxacin HCl 500 mg tablet 500 mg PO Q12H #20 tabs 01/03/23 01/16/23 Rx atorvastatin 10 mg tablet 10 mg PO DAILY 01/16/23 01/16/23 History cyclobenzaprine 10 mg tablet 10 mg PO PRN PRN Leg cramps 01/16/23 01/16/23 History levothyroxine 50 mcg tablet 50 mcg PO DAILY 01/16/23 01/16/23 History (Euthyrox) metronidazole 500 mg tablet See Rx Instructions .Route .COMPLEX 01/16/23 01/16/23 History Current Medications: Active Medications Acetaminophen (Acetaminophen 325 Mg Tablet) 650 mg PO Q4H PRN PRN Reason: Mild Pain (1-3) or Fever Last Admin: 01/17/23 00:05 Dose: 650 mg Atorvastatin Calcium (Atorvastatin 10 Mg Tablet) 10 mg PO DAILY [facility] Last Admin: 01/17/23 08:37 Dose: 10 mg Cyclobenzaprine HCl (Cyclobenzaprine Hcl 10 Mg Tablet) 10 mg PO PRN PRN PRN Reason: Leg cramps Last Admin: 01/16/23 20:57 Dose: 10 mg Donepezil HCl (Donepezil Hcl 5 Mg Tablet) 5 mg PO QHS [facility] Last Admin: 01/16/23 20:53 Dose: 5 mg Enoxaparin Sodium (Enoxaparin 40 Mg/0.4 Ml Syringe) 40 mg SUB-Q DAILY [facility] Last Admin: 01/17/23 08:40 Dose: Not Given Ergocalciferol (Ergocalciferol 50,000 Units Capsule) 50,000 units PO Mo@0900 [facility] Escitalopram Oxalate (Escitalopram Oxalate 10 Mg Tablet) 20 mg PO DAILY [facility] Last Admin: 01/17/23 08:37 Dose: 20 mg Piperacillin/Tazobactam/Dextrose (Zosyn 3.375 Gm/Ns 50 Ml) 3.375 gm in 50 mls @ 100 mls/hr IVPB Q6HR [facility] Last Admin: 01/17/23 11:52 Dose: 100 mls/hr Levothyroxine Sodium (Levothyroxine Sodium 50 Mcg Tablet) 50 mcg PO DAILY@0630 [facility] Last Admin: 01/17/23 05:00 Dose: Not Given Morphine Sulfate (Morphine Sulfate (*Crx) 2 Mg/Ml Inj) 2 mg IV PUSH Q4H PRN PRN Reason: Pain Rated 7-10 Ondansetron HCl (Ondansetron Inj 4 Mg/2 Ml Vial) 4 mg IV PUSH Q6H PRN PRN Reason: Nausea And Vomiting Sedation/Anesthesia: No previous sedation/anesthesia problems (including family history). [facility] Past Medical History Medical History Acute left-sided low back pain with sciatica Depression ETD (eustachian tube dysfunction) Mild cognitive impairment Status post fall Family History Family History Father Carcinoma of colon Other Family history of malignant neoplasm Social History Social History Social History: Single Smoking status: Never smoker Second hand tobacco smoke exposure: No Alcohol intake: current Drinks per week: 1 Alcohol use details: wine occasionally Substance use: never Substance use type: does not use Lack of Transportation: No Lack of Food: Never True Current Housing: I Have Housing Concerned About Future Housing: No Difficulty Paying Gas/Electric Bills: No Difficulty Paying for Meds: No Currently Unemployed: No Education: High School Diploma/GED Difficulty w/ Childcare or Family Care: No Living arrangements: alone Occupation/Education: retired Gender identity (if verbalized by the patient): Female Sexual Orientation (if Verbalized by the Patient): Straight or Heterosexual Spiritual care concerns: No Mod Sed Physical Exam Physical Exam Pre Procedural Exam: Normal: Appearance, Throat, Lung
[2023-01-17] MEDS: DONEPEZIL HCL 5 MG TABLET PO (20:10)
[2023-01-18] MEDS: PIPERACILLN/TAZ 3.375GM/NS50ML 3.375 GM/50 ML BAG IVPB ×4 (05:13→23:25)
[2023-01-18] MEDS: LEVOTHYROXINE SODIUM 50 MCG TABLET PO (05:14)
[2023-01-18 05:40] VITALS: BP 105/55; PULSE 75; RESP 17; TEMP 36.9; O2SAT 97
[2023-01-18] MEDS: ENOXAPARIN 40 MG/0.4 ML SYRINGE SUB-Q (08:50)
[2023-01-18] MEDS: ESCITALOPRAM OXALATE 10 MG TABLET 20 MG PO (08:50)
[2023-01-18] MEDS: ATORVASTATIN 10 MG TABLET PO (08:50)
--- NOTE | 2023-01-18 11:03 | PM.IMPN ---
Progress Note: A&P Assessment and Plan (1) Abscess of sigmoid colon due to diverticulitis: Code(s): K57.20 - Diverticulitis of large intestine with perforation and abscess without bleeding Status: Acute Assessment and Plan: Continue IV antibiotics. General surgery consulted. Patient underwent cT-guided drainage and drain has been placed. Advanced diet as tolerated (2) Mixed hyperlipidemia: Code(s): E78.2 - Mixed hyperlipidemia Status: Acute Assessment and Plan: continue statin (3) JACOB (generalized anxiety disorder): Code(s): F41.1 - Generalized anxiety disorder Status: Acute Assessment and Plan: continue home medication (4) Acquired hypothyroidism: Code(s): E03.9 - Hypothyroidism, unspecified Status: Acute Assessment and Plan: continue levothyroxine (5) Depression: Code(s): F32.A - Depression, unspecified Status: Acute Assessment and Plan: continue home medication Subjective Date/time seen: 01/18/23 11:03 Interval history: No issues at present Review of Systems Review of Systems: All systems reviewed & are unremarkable except as noted in HPI and below Exam Narrative: GENERAL: The patient is well developed, not in acute distress HEENT: Nonicteric sclerae, PERRLA, EOMI. Oropharynx clear. Moist mucous membranes. Conjunctivae appear well perfused. CHEST: Chest wall is nontender. HEART: Regular rate and rhythm without murmur, rubs, or gallops LUNGS: Clear to auscultation bilaterally. no respiratory distress ABDOMEN: Soft, drain in place SKIN: No rash, no excessive bruising, petechiae, or purpura. NEUROLOGIC: Cranial nerves II-XII intact, alert and oriented x 3, no gross motor deficits EXTREMITIES: no edema, cyanosis or clubbing Objective Data Vital Signs Vital Signs: Vital Signs - 24 hr 01/17/23 12:54 01/17/23 14:20 01/17/23 13:00 Temperature Pulse Rate 85 83 86 Respiratory Rate 16 20 18 Blood Pressure 113/53 L 110/56 L 98/71 L Pulse Oximetry 100 100 100 Oxygen Delivery Room Air Room Air Room Air Oxygen Flow Rate 01/17/23 13:15 01/17/23 13:20 01/17/23 13:25 Temperature Pulse Rate 91 90 91 Respiratory Rate 20 22 H 20 Blood Pressure 111/49 L 110/50 L 102/56 L Pulse Oximetry 99 94 93 Oxygen Delivery Nasal Cannula Nasal Cannula Nasal Cannula Oxygen Flow Rate 3 3 3 01/17/23 13:30 01/17/23 13:35 01/17/23 13:40 Temperature Pulse Rate 90 90 88 Respiratory Rate 18 20 20 Blood Pressure 101/50 L 102/56 L 100/63 Pulse Oximetry 94 97 100 Oxygen Delivery Nasal Cannula Nasal Cannula Nasal Cannula Oxygen Flow Rate 3 3 3 01/17/23 13:45 01/17/23 13:50 01/17/23 13:55 Temperature Pulse Rate 88 88 86 Respiratory Rate 18 16 15 Blood Pressure 100/59 L 113/74 113/69 Pulse Oximetry 99 99 100 Oxygen Delivery Nasal Cannula Nasal Cannula Nasal Cannula Oxygen Flow Rate 3 3 3 01/17/23 14:00 01/17/23 14:05 01/17/23 14:10 Temperature Pulse Rate 85 87 87 Respiratory Rate 16 22 H 23 H Blood Pressure 107/60 113/65 112/51 L Pulse Oximetry 97 96 98 Oxygen Delivery Nasal Cannula Nasal Cannula Nasal Cannula Oxygen Flow Rate 3 3 3 01/17/23 14:15 01/17/23 14:25 01/17/23 20:00 Temperature Pulse Rate 86 82 82 Respiratory Rate 22 H 18 18 Blood Pressure 114/54 L 111/54 L Pulse Oximetry 96 96 96 Oxygen Delivery Room Air Room Air Room Air Oxygen Flow Rate 01/17/23 21:40 01/18/23 05:40 01/18/23 08:00 Temperature 98.4 F 98.4 F Pulse Rate 80 75 Respiratory Rate 17 17 Blood Pressure 102/47 L 105/55 L Pulse Oximetry 99 97 Oxygen Delivery Room Air Oxygen Flow Rate Intake/Output Intake/Output: Intake & Output 01/15/23 01/16/23 01/17/23 01/18/23 23:59 23:59 23:59 23:59 Intake Total 390 / 390 440 / 440 220 / 220 Output Total 200 / 200 1600 / 1600 500 / 500 Balance 190 / 190 -1160 / -1160 -280 / -280 Meds/Results Medications: Active Medications
--- NOTE | 2023-01-18 11:11 | PM.PNGS ---
Progress Note: A&P Assessment and Plan (1) Abscess of sigmoid colon due to diverticulitis: Code(s): K57.20 - Diverticulitis of large intestine with perforation and abscess without bleeding Status: Acute Assessment and Plan: s/p perc drain, cont abx, roselyn low fiber diet, home soon c po abx and low fiber diet, will likely repeat CT next wk to reassess abscess prior to drain removal Subjective Subjective Date/Time Seen: 01/18/23 11:11 Interval history: feels much better today after drain, roselyn low fiber diet, +bowel fxn Review of Systems Review of Systems: All systems reviewed & are unremarkable except as noted in HPI and below Exam Const: General: cooperative, comfortable and no acute distress Resp: Auscultation: clear to auscultation bilaterally Cardio: Rate: regular rate Rhythm: regular rhythm GI: Inspection: normal to inspection and non-distended GI Palp: No abdominal tenderness, Yes Soft to palpation, No Tenderness to palpation present (GI), No Guarding due to palpation present (GI) and No Rigid due to palpation Other: drain - s/s output Objective Data Vital Signs Vital Signs: Vital Signs - 24 hr 01/17/23 12:54 01/17/23 14:20 01/17/23 13:00 Temperature Pulse Rate 85 83 86 Respiratory Rate 16 20 18 Blood Pressure 113/53 L 110/56 L 98/71 L Pulse Oximetry 100 100 100 Oxygen Delivery Room Air Room Air Room Air Oxygen Flow Rate 01/17/23 13:15 01/17/23 13:20 01/17/23 13:25 Temperature Pulse Rate 91 90 91 Respiratory Rate 20 22 H 20 Blood Pressure 111/49 L 110/50 L 102/56 L Pulse Oximetry 99 94 93 Oxygen Delivery Nasal Cannula Nasal Cannula Nasal Cannula Oxygen Flow Rate 3 3 3 01/17/23 13:30 01/17/23 13:35 01/17/23 13:40 Temperature Pulse Rate 90 90 88 Respiratory Rate 18 20 20 Blood Pressure 101/50 L 102/56 L 100/63 Pulse Oximetry 94 97 100 Oxygen Delivery Nasal Cannula Nasal Cannula Nasal Cannula Oxygen Flow Rate 3 3 3 01/17/23 13:45 01/17/23 13:50 01/17/23 13:55 Temperature Pulse Rate 88 88 86 Respiratory Rate 18 16 15 Blood Pressure 100/59 L 113/74 113/69 Pulse Oximetry 99 99 100 Oxygen Delivery Nasal Cannula Nasal Cannula Nasal Cannula Oxygen Flow Rate 3 3 3 01/17/23 14:00 01/17/23 14:05 01/17/23 14:10 Temperature Pulse Rate 85 87 87 Respiratory Rate 16 22 H 23 H Blood Pressure 107/60 113/65 112/51 L Pulse Oximetry 97 96 98 Oxygen Delivery Nasal Cannula Nasal Cannula Nasal Cannula Oxygen Flow Rate 3 3 3 01/17/23 14:15 01/17/23 14:25 01/17/23 20:00 Temperature Pulse Rate 86 82 82 Respiratory Rate 22 H 18 18 Blood Pressure 114/54 L 111/54 L Pulse Oximetry 96 96 96 Oxygen Delivery Room Air Room Air Room Air Oxygen Flow Rate 01/17/23 21:40 01/18/23 05:40 01/18/23 08:00 Temperature 36.9 C 36.9 C Pulse Rate 80 75 Respiratory Rate 17 17 Blood Pressure 102/47 L 105/55 L Pulse Oximetry 99 97 Oxygen Delivery Room Air Oxygen Flow Rate Intake/Output Intake/Output: Intake & Output 01/15/23 01/16/23 01/17/23 01/18/23 23:59 23:59 23:59 23:59 Intake Total 390 440 220 Output Total 200 1600 500 Balance 190 -1734 -085 Meds/Results Medications: Active Medications Generic Name Dose Route Start Last Admin Trade Name Freq PRN Reason Stop Dose Admin Acetaminophen 650 mg 01/16/23 14:25 01/17/23 20:08 Acetaminophen 325 Mg Tablet PO 650 mg Q4H PRN Administration Mild Pain (1-3) or Fever Atorvastatin Calcium 10 mg 01/17/23 09:00 01/18/23 08:50 Atorvastatin 10 Mg Tablet PO 10 mg DAILY ZORAIDA Administration Cyclobenzaprine HCl 10 mg 01/16/23 16:49 01/16/23 20:57 Cyclobenzaprine Hcl 10 Mg Tablet PO 10 mg PRN PRN Administration Leg cramps Donepezil HCl 5 mg 01/16/23 21:00 01/17/23 20:10 Donepezil Hcl 5 Mg Tablet PO 5 mg QHS ZORAIDA Administration Enoxaparin Sodium 40 mg 01/17/23 09:00 01/18/23 08:50 Enoxaparin 40 Mg/0.4 Ml Syringe SUB-Q 40 mg
[2023-01-18 14:15] VITALS: BP 125/49; PULSE 72; RESP 18; TEMP 37; O2SAT 99
[2023-01-18] MEDS: DONEPEZIL HCL 5 MG TABLET PO (21:20)
[2023-01-18 22:13] VITALS: BP 106/64; PULSE 71; RESP 16; TEMP 37; O2SAT 99
[2023-01-19 04:45] VITALS: BP 122/53; PULSE 81; RESP 16; TEMP 36.5; O2SAT 96
[2023-01-19 05:03] LABS: Hematocrit 35.2 % (37.0-47.0); Hemoglobin 11.1 g/dL (12.0-15.0); Mean Corpuscular HGB Conc 31.5 g/dl (32-36); Mean Corpuscular Hemoglobin 30.2 pg (26-34); Mean Corpuscular Volume 95.9 fl (80-100); Mean Platelet Volume 8.8 fl (7.4-10.4); Platelet Count Result 362 k/mm3 (150-375); Red Blood Count 3.67 M/mm3 (4.2-5.4); Red Cell Distribution Width 13.6 % (11.5-14.5); White Blood Count 5.9 K/mm3 (4.5-10.0)
[2023-01-19 05:14] LABS: Anion Gap 3 mmol/L (8-16); Blood Urea Nitrogen 17 mg/dL (7-17); Calcium 8.5 mg/dL (8.4-10.2); Carbon Dioxide 27 mmol/L (22-30); Chloride 111 mmol/L (98-107); Estimated CRCL calculation 56 ml/min; Estimated Glomerular Filt Rate > 60; Glucose 97 mg/dL (65-110); Potassium 3.7 mmol/L (3.4-5.0); Sodium 141 mmol/L (137-145)
[2023-01-19] MEDS: PIPERACILLN/TAZ 3.375GM/NS50ML 3.375 GM/50 ML BAG IVPB (06:02)
[2023-01-19] MEDS: LEVOTHYROXINE SODIUM 50 MCG TABLET PO (06:03)
--- NOTE | 2023-01-19 09:02 | PM.PNGS ---
Progress Note: A&P Assessment and Plan (1) Abscess of sigmoid colon due to diverticulitis: Code(s): K57.20 - Diverticulitis of large intestine with perforation and abscess without bleeding Status: Acute Assessment and Plan: doing well, cont drain and abx, ok to dc home, plan for repeat CT early next wk to reassess abscess, f/u in office after CT Subjective Subjective Date/Time Seen: 01/19/23 09:02 Interval history: feels good, roselyn low fat diet, minimal pain Review of Systems Review of Systems: All systems reviewed & are unremarkable except as noted in HPI and below Exam Const: General: cooperative, comfortable and no acute distress Resp: Auscultation: clear to auscultation bilaterally Cardio: Rate: regular rate Rhythm: regular rhythm GI: Inspection: normal to inspection GI Palp: Yes abdominal tenderness, Yes Soft to palpation, Yes Tenderness to palpation present (GI), No Guarding due to palpation present (GI) and No Rigid due to palpation Other: pelvic drain - minimal s/s drainage Objective Data Vital Signs Vital Signs: Vital Signs - 24 hr 01/18/23 14:15 01/18/23 22:13 01/19/23 04:45 Temperature 37.0 C 37.0 C 36.5 C Pulse Rate 72 71 81 Respiratory Rate 18 16 16 Blood Pressure 125/49 L 106/64 122/53 L Pulse Oximetry 99 99 96 Intake/Output Intake/Output: Intake & Output 01/16/23 01/17/23 01/18/23 01/19/23 23:59 23:59 23:59 23:59 Intake Total 390 440 850 250 Output Total 200 1600 500 430 Balance 190 -1160 350 -180 Meds/Results Medications: Active Medications Generic Name Dose Route Start Last Admin Trade Name Freq PRN Reason Stop Dose Admin Acetaminophen 650 mg 01/16/23 14:25 01/17/23 20:08 Acetaminophen 325 Mg Tablet PO 650 mg Q4H PRN Administration Mild Pain (1-3) or Fever Atorvastatin Calcium 10 mg 01/17/23 09:00 01/18/23 08:50 Atorvastatin 10 Mg Tablet PO 10 mg DAILY ZORAIDA Administration Cyclobenzaprine HCl 10 mg 01/16/23 16:49 01/16/23 20:57 Cyclobenzaprine Hcl 10 Mg Tablet PO 10 mg PRN PRN Administration Leg cramps Donepezil HCl 5 mg 05/23/23 21:00 01/18/23 21:20 Donepezil Hcl 5 Mg Tablet PO 5 mg QHS ZORAIDA Administration Enoxaparin Sodium 40 mg 01/17/23 09:00 01/18/23 08:50 Enoxaparin 40 Mg/0.4 Ml Syringe SUB-Q 40 mg DAILY ZORAIDA Administration Ergocalciferol 50,000 units 01/23/23 09:00 Ergocalciferol 50,000 Units Capsule PO Mo@0900 ZORAIDA Escitalopram Oxalate 20 mg 01/17/23 09:00 01/18/23 08:50 Escitalopram Oxalate 10 Mg Tablet PO 20 mg DAILY [facility] Administration Piperacillin/Tazobactam/Dextrose 3.375 gm in 50 mls @ 100 mls/hr 01/16/23 14:30 01/19/23 06:43 Zosyn 3.375 Gm/Ns 50 Ml IVPB Infused Q6HR [facility] Infusion Levothyroxine Sodium 50 mcg 01/17/23 06:30 01/19/23 06:03 Levothyroxine Sodium 50 Mcg Tablet PO 50 mcg DAILY@0630 [facility] Administration Morphine Sulfate 2 mg 01/16/23 14:25 Morphine Sulfate (*Crx) 2 Mg/Ml Inj IV PUSH Q4H PRN Pain Rated 7-10 Ondansetron HCl 4 mg 01/16/23 14:25 Ondansetron Inj 4 Mg/2 Ml Vial IV PUSH Q6H PRN Nausea And Vomiting Radiology Results: ITS Impressions Catheter Placement CT 01/17/23 14:27 IMPRESSION: 1. Successful CT-guided pelvic abscess drainage. 2. 20 mL fluid was sent for aerobic and anaerobic cultures. 3. The catheter will be managed by Dr. Benavides. Labs Labs: Laboratory Results - last 24 hr 01/19/23 04:37 WBC 5.9 RBC 3.67 L Hgb 11.1 L Hct 35.2 L MCV 95.9 MCH 30.2 MCHC 31.5 L RDW 13.6 Plt Count 362 MPV 8.8 Sodium 141 Potassium 3.7 Chloride 111 H Carbon Dioxide 27 Anion Gap 3 L BUN 17 Creatinine 0.70 Estim Creat Clear Calc 56 Estimated GFR > 60 Glucose 97 Calcium 8.5
[2023-01-19] MEDS: ESCITALOPRAM OXALATE 10 MG TABLET 20 MG PO (09:24)
[2023-01-19] MEDS: ATORVASTATIN 10 MG TABLET PO (09:24)
[2023-01-19] MEDS: ENOXAPARIN 40 MG/0.4 ML SYRINGE SUB-Q (09:24)
--- NOTE | 2023-01-19 10:09 | PM.DS ---
DS: Admitting Diagnosis Discharge Date 01/19/2023 Admitting Diagnosis Diverticular abscess DS: Discharge Diagnosis Discharge Diagnosis (1) Abscess of sigmoid colon due to diverticulitis: Code(s): K57.20 - Diverticulitis of large intestine with perforation and abscess without bleeding Status: Acute (2) Polyarthralgia: Code(s): M25.50 - Pain in unspecified joint Status: Acute (3) Mixed hyperlipidemia: Code(s): E78.2 - Mixed hyperlipidemia Status: Acute DS: Summary Hospital Course Hospital Course: patient originally is being seen as an outpatient basis for left lower quadrant pain diagnosed with diverticulitis with CT abdomen pelvis done 01/03/2023.? On the CT there was small focus of gas in cul-de-sac which may be extraluminal suspicious for perforation.? History with Flagyl and Cipro outpatient basis.? However the patient was only taking once a day Cipro and Flagyl due to abdominal pain after taking antibiotic.? She also reports some on and off constipation no nausea vomiting fever chills.? She presented to? clinic again?and a repeat CT was ordered which showed persistent diverticulitis with formation of abscess.? She was admitted to the hospital and was started on IV Zosyn. General surgery was consulted. They ordered CT-guided drainage for the abscess. IR was consulted and a drain was placed. Patient is currently stable and is tolerating a diet. She has been discharged home with outpatient follow-up with surgery for possible drain removal next week. Time Spent with Patient Time attestation: Total time spent providing and/or coordinating discharge services: Exam Narrative: GENERAL: The patient is well developed, not in acute distress HEENT: Nonicteric sclerae, PERRLA, EOMI. Oropharynx clear. Moist mucous membranes. Conjunctivae appear well perfused. CHEST: Chest wall is nontender. HEART: Regular rate and rhythm without murmur, rubs, or gallops LUNGS: Clear to auscultation bilaterally. no respiratory distress ABDOMEN: Soft, drain in place SKIN: No rash, no excessive bruising, petechiae, or purpura. NEUROLOGIC: Cranial nerves II-XII intact, alert and oriented x 3, no gross motor deficits EXTREMITIES: no edema, cyanosis or clubbing DS: Data Data Completed and Pending Labs on day of discharge: Labs from last 24 hours 01/19/23 04:37 WBC 5.9 RBC 3.67 L Hgb 11.1 L Hct 35.2 L MCV 95.9 MCH 30.2 MCHC 31.5 L RDW 13.6 Plt Count 362 MPV 8.8 Sodium 141 Potassium 3.7 Chloride 111 H Carbon Dioxide 27 Anion Gap 3 L BUN 17 Creatinine 0.70 Estim Creat Clear Calc 56 Estimated GFR > 60 Glucose 97 Calcium 8.5 Preliminary micro results at discharge 01/17/23 14:28 Anaerobic Culture - Preliminary Abscess 01/16/23 16:26 Blood Culture - Preliminary Blood 01/16/23 16:14 Blood Culture - Preliminary Blood Discharge Plan Discharge Consulting providers: Elsa Benavides Discharging Clinician: Errol Aguirre Anticipated Discharge Date/Time: 01/19/23 10:07 Patient Disposition: Home, Self-Care Activity: no preference Diet: heart healthy and low fiber Patient Instructions: Antibiotic Form, Low Fiber Diet (DC) Stand Alone Forms: General Discharge Information Follow-up/Referrals: Priyank Bansal MD [Primary Care Provider] - Elsa Benavides MD [Physician] - Discharge Medications: Continued cholecalciferol (vitamin D3) 1,250 mcg (50,000 unit) capsule 1,250 mcg PO WEEKLY Qty: 7 0RF atorvastatin 10 mg tablet 10 mg PO DAILY levothyroxine [Euthyrox] 50 mcg tablet 50 mcg PO DAILY cyclobenzaprine 10 mg tablet 10 mg PO PRN PRN (Reason: Leg cramps) donepezil [Aricept] 5 mg tablet 5 mg PO QHS Qty: 90 2RF escitalopram oxalate 20 mg tablet 20 mg PO DAILY Qty: 90 1RF ciprofloxacin HCl 500 mg tablet 500 mg PO Q12H 5 Days Qty: 10 0RF Rx Instructions: Hold Donepezil while taking Ciproflo
== END 2023-01-19 12:25 | disposition home or self-care (01) | DRG 392 ==
PROVIDERS: Nurse Practitioner Family; Radiology Diagnostic Radiology; Surgery; Admitting Provider Internal Medicine; PCP Family Medicine; Visit Provider Hospitalist
PROC: 0W9J30Z Drainage of Pelvic Cavity with Drainage Device, Percutaneous Approach (ICD-10-PCS; principal; 2023-01-17 12:30)
DX: K57.20 Diverticulitis of large intestine with perforation and abscess without bleeding (principal); E78.2 Mixed hyperlipidemia; H69.80 Other specified disorders of Eustachian tube, unspecified ear; M25.50 Pain in unspecified joint; G31.84 Mild cognitive impairment of uncertain or unknown etiology; F41.1 Generalized anxiety disorder; F32.A Depression, unspecified; Z80.0 Family history of malignant neoplasm of digestive organs
CPT/HCPCS: 36415; 74177; 75989; 80048; 80053; 81001; 83605; 83735; 85025; 85027; 85610; 85730; 87040; 87070; 87075; 87076; 87077; 87205; A9270; C1729; J1650; J2543; J3010; J7040; Q9967

== ENCOUNTER 2023-01-23 16:01 | Outpatient (CLI) | payer MEDICARE, BC, SELFPAY ==
--- NOTE | ~2023-01-23 | CT_ITS ---
Non-contrast CT scan of the Abdomen and Pelvis Clinical indication: Diverticulitis Technique: 2.5 mm axial scans were obtained through the abdomen and pelvis without intravenous or or al contrast. Dose reduction technique was used on this scan by utilizing automated exposure control a nd iterative reconstruction technique. The dose-length product (DLP) was 368.60 mGy-cm. COMPARISON: 01/15/2023 Findings: Images through the lung bases reveal stable scarring right middle lobe. Stable small tree- in-bud opacities in the right lower lobe.. The liver, spleen, pancreas, gallbladder, left kidney, and adrenals appear normal. 3 mm nonobstructin g right renal stone noted. There is no aortic aneurysm. There is no evidence of bowel obstruction. There is been interval placement of percutaneous drainage catheter within the perisigmoid abscess described on the recent prior CT. Abscess is nearly completel y resolved. There is mild inflammatory change in the sigmoid colonic region. Images through the pelvis were performed. There is no evidence of ascites or lymphadenopathy. No adne xal mass seen. Urinary bladder unremarkable. Impression: Status post interval percutaneous drainage of previously noted perisigmoid abscess, with drainage cat heter in place. Abscess is essentially completely resolved. 3 mm nonobstructing right renal stone. Reviewed, dictated and finalized at location . Impression: Status post interval percutaneous drainage of previously noted perisigmoid absc ess, with drainage catheter in place. Abscess is essentially completely resolve d. 3 mm nonobstructing right renal stone.
== END 2023-01-23 16:02 | disposition home or self-care (01) ==
PROVIDERS: PCP Family Medicine; Visit Provider Surgery
DX: K57.92 Diverticulitis of intestine, part unspecified, without perforation or abscess without bleeding (principal); N20.0 Calculus of kidney
CPT/HCPCS: 74176

== ENCOUNTER → 2023-02-13 13:29 | Outpatient (CLI) | payer MEDICARE, BC, SELFPAY ==
--- NOTE | ~2023-02-13 | MM_ITS ---
EXAMINATION: MM screening bertha BI w stephanie HISTORY: Screening mammogram TECHNIQUE: Craniocaudal and mediolateral oblique 3-D tomosynthesis images were obtained and synthetic 2-D images were generated. CAD analysis was submitted and interpreted. COMPARISON: December 02, 2021, August 03, 2020, June 19, 2019 bilateral screening mammogram examinati ons BREAST PARENCHYMAL COMPOSITION: The breasts are almost entirely fatty. FINDINGS: There is no evidence of suspicious mass, calcification, or architectural distortion to sugg est malignancy in either breast. There has been no suspicious interval change. IMPRESSION: 1. No mammographic evidence of malignancy. 2. Recommend routine screening mammography in one year. BI-RADS Category 1: Negative Reviewed, dictated and finalized at location A.
== END ==
PROVIDERS: PCP Surgery; Visit Provider Obstetrics & Gynecology Gynecology
DX: Z12.31 Encounter for screening mammogram for malignant neoplasm of breast (principal)
CPT/HCPCS: 77063; 77067

== ENCOUNTER 2023-03-07 00:51 | Day surgery (SDC) | payer MEDICARE, BC, SELFPAY ==
[2023-02-21 14:20] VITALS: BMI 25.0
[2023-03-07 09:34] VITALS: BP 118/83; PULSE 95; RESP 18; TEMP 36.1; O2SAT 99
[2023-03-07] MEDS: LACTATED RINGERS 1,000 ML 150 ML IV CONT (09:45)
--- NOTE | 2023-03-07 10:04 | PM.HPGS ---
History of Present Illness History of Present Illness Consent: Risks, benefits, and alternatives have been discussed and questions answered. Patient agrees to proceed with procedure. Chief complaint: Diverticulitis of large intestine with perforation Narrative: Cuca More is a 72 year old female who was recently hospitalized for diverticulitis from 01/16/23-01/19/23. Patient had presented to the ED with worsening abdominal pain. She states her symptoms started on January 02. CT scan at that time had shown diverticulitis with micro perforation. She was treated with oral antibiotics. She then returned to her PCP and a repeat CT was ordered which showed persistent diverticulitis with formation of abscess. Patient was admitted and treated with IV antibiotics. CT-guided drainage for the abscess was performed with drain placement. Patient was discharged on oral antibiotics. When she had a colonoscopy for screening in last year, extensive diverticulosis precluded using a standard colonoscope. Consequently an EGD scope was used to examine her colon at that time. Review of Systems Review of Systems: All systems reviewed & are unremarkable except as noted in HPI and below PMFSH Past Medical History Medical History Acute left-sided low back pain with sciatica Depression ETD (eustachian tube dysfunction) Mild cognitive impairment Status post fall Family History Family History Father Carcinoma of colon Other Family history of malignant neoplasm Social History Social History Social History: Single Smoking status: Never smoker Second hand tobacco smoke exposure: No Alcohol intake: current Drinks per week: 1 Alcohol use details: occasional wine Substance use: never Substance use type: does not use Lack of Transportation: No Lack of Food: Never True Current Housing: I Have Housing Concerned About Future Housing: No Difficulty Paying Gas/Electric Bills: No Difficulty Paying for Meds: No Currently Unemployed: No Education: High School Diploma/GED Difficulty w/ Childcare or Family Care: No Living arrangements: alone Occupation/Education: retired Gender identity (if verbalized by the patient): Female Sexual Orientation (if Verbalized by the Patient): Straight or Heterosexual Spiritual care concerns: No Meds Home Medications and Allergies Home Medications Medication Instructions Recorded Confirmed Type donepezil 5 mg tablet (Aricept) 5 mg PO QHS #90 tabs 07/17/22 02/21/23 Rx escitalopram oxalate 20 mg tablet 20 mg PO DAILY #90 tabs 12/27/22 02/21/23 Rx cyclobenzaprine 10 mg tablet 10 mg PO PRN PRN Leg cramps 01/16/23 02/21/23 History levothyroxine 50 mcg tablet 50 mcg PO DAILY 01/16/23 02/21/23 History (Euthyrox) atorvastatin 10 mg tablet 10 mg PO DAILY #90 tabs 03/05/23 03/07/23 Rx Allergies Allergy/AdvReac Type Severity Reaction Status Date / Time No Known Allergies Allergy Verified 03/07/23 09:29 Vital Signs Vital Signs - 24 hr 03/07/23 09:34 Temperature 36.1 C L Pulse Rate 95 Respiratory Rate 18 Blood Pressure 118/83 Pulse Oximetry 99 Oxygen Delivery Room Air Exam Resp: Auscultation: clear to auscultation bilaterally Cardio: Rate: regular rate Rhythm: regular rhythm GI: GI Palp: Yes Soft to palpation and No Tenderness to palpation present (GI) Assessment and Plan Assessment and plan (1) Diverticulitis: Code(s): K57.92 - Diverticulitis of intestine, part unspecified, without perforation or abscess without bleeding Status: Acute Assessment and Plan: Colonoscopy with possible biopsy or polypectomy or cautery or injection of substances.
--- NOTE | 2023-03-07 10:24 | WPDANESEPPF ---
Anes - Initial Pre Proc Eval Procedure: Operation Date: 03/07/23 10:30 Proposed Procedures p Colonoscopy - Matias Zamarripa MD Date/Time: 03/07/23 10:24 Surgeon: Matias Zamarripa MD Pre Op Diagnosis: Diverticulitis of large intestine with perforation Patient Data Age: 72 Gender: F Height: 1.63 m Weight: 63.2 kg Last Vital Signs Temp 97 F L 03/07/23 09:34 Pulse 95 03/07/23 09:34 Resp 18 03/07/23 09:34 BP 118/83 03/07/23 09:34 Pulse Ox 99 03/07/23 09:34 O2 Del Method Room Air 03/07/23 09:34 Allergies Allergy/AdvReac Type Severity Reaction Status Date / Time No Known Allergies Allergy Verified 03/07/23 09:29 Home Medications Medication Instructions Recorded Confirmed Type donepezil 5 mg tablet (Aricept) 5 mg PO QHS #90 tabs 07/17/22 02/21/23 Rx escitalopram oxalate 20 mg tablet 20 mg PO DAILY #90 tabs 12/27/22 02/21/23 Rx cyclobenzaprine 10 mg tablet 10 mg PO PRN PRN Leg cramps 01/16/23 02/21/23 History levothyroxine 50 mcg tablet 50 mcg PO DAILY 01/16/23 02/21/23 History (Euthyrox) atorvastatin 10 mg tablet 10 mg PO DAILY #90 tabs 03/05/23 03/07/23 Rx Patient hx anesthesia problems: none Family hx anesthesia problems: none Results Review: All pre-operative results and documents have been reviewed as part of the pre-operative evaluation. [facility] Past Medical History Medical History Acute left-sided low back pain with sciatica Depression ETD (eustachian tube dysfunction) Mild cognitive impairment Status post fall Family History Family History Father Carcinoma of colon Other Family history of malignant neoplasm Social History Social History Social History: Single Smoking status: Never smoker Second hand tobacco smoke exposure: No Alcohol intake: current Drinks per week: 1 Alcohol use details: occasional wine Substance use: never Substance use type: does not use Lack of Transportation: No Lack of Food: Never True Current Housing: I Have Housing Concerned About Future Housing: No Difficulty Paying Gas/Electric Bills: No Difficulty Paying for Meds: No Currently Unemployed: No Education: High School Diploma/GED Difficulty w/ Childcare or Family Care: No Living arrangements: alone Occupation/Education: retired Gender identity (if verbalized by the patient): Female Sexual Orientation (if Verbalized by the Patient): Straight or Heterosexual Spiritual care concerns: No Anes - Eval Final PreProcedure Day of Procedure 03/07/23 10:25 Patient weight: normal Heart: regular rate and rhythm Lungs: clear to auscultation Airway: Mallampati scale class II Neurological: alert and oriented Last oral intake: >/= 8 hours ASA classification: II Emergent: no Anesthetic plan: proceed Anesthesia type and monitoring: general GIVS and standard monitoring Results Review: All pre-operative results and documents have been reviewed as part of the pre-operative evaluation. Informed Consent: The patient's anesthetic plan and its attendant risks and benefits were discussed with the patient/family/POA. Questions were solicited and answers provided to the satisfaction of the patient/family/POA.
[2023-03-07 10:50] VITALS: BP 99/57; PULSE 77; RESP 18; O2SAT 95
[2023-03-07 11:00] VITALS: BP 100/59; PULSE 77; RESP 18; O2SAT 95
[2023-03-07 11:10] VITALS: BP 111/63; PULSE 78; RESP 18; O2SAT 97
== END 2023-03-07 11:24 | disposition home or self-care (01) ==
PROVIDERS: PCP Family Medicine; Visit Provider Internal Medicine Gastroenterology
PROC: 0DJD8ZZ Inspection of Lower Intestinal Tract, Via Natural or Artificial Opening Endoscopic (ICD-10-PCS; CPT 45378; principal; 2023-03-07 10:30)
DX: K57.30 Diverticulosis of large intestine without perforation or abscess without bleeding (principal); K63.89 Other specified diseases of intestine; F32.A Depression, unspecified
CPT/HCPCS: 45378; J2704; J7120

== ENCOUNTER 2023-03-26 13:55 | Outpatient (CLI) | payer MEDICARE, BC, SELFPAY ==
--- NOTE | 2023-03-26 14:52 | ECG_ITS ---
Measurements Intervals [place] Rate: 69 P: 21 CT: 121 QRS: -10 QRSD: 97 T: 45 QT: 397 QTc: 426 Interpretive Statements SINUS RHYTHM DELAYED PRECORDIAL R/S TRANSITION BASELINE ARTIFACT- I, II, III, AVR, AVL BORDERLINE ECG NO PREVIOUS ECG AVAILABLE FOR COMPARISON Electronically Signed On 03-26-2023 16:41:32 CDT by Ji Diego D.O.
[2023-03-26 15:52] LABS: Hematocrit 38.4 % (37.0-47.0); Hemoglobin 12.3 g/dL (12.0-15.0)
== END 2023-03-26 13:56 | disposition home or self-care (01) ==
LOC: ANHSURGERY 14:00
PROVIDERS: Anesthesiology; PCP Family Medicine; Visit Provider Surgery
DX: K56.699 Other intestinal obstruction unspecified as to partial versus complete obstruction (principal); E78.00 Pure hypercholesterolemia, unspecified; Z01.818 Encounter for other preprocedural examination
CPT/HCPCS: 36415; 85014; 85018; 86850; 86900; 86901; 93005

== ENCOUNTER 2023-04-02 16:54 | Inpatient (IN) | payer MEDICARE, BC, SELFPAY ==
[2023-03-26 14:04] VITALS: BMI 27.0
--- NOTE | 2023-03-26 14:27 | PC.NURSE ---
Report to the Outpatient Waiting Room, entrance under the green pavilion located off [facility], at time _1000 on date ___04/02/23____. Planned Procedure Time: _1200 . Time changes happen often and if your time is changed the preop area will call you the afternoon before. - You and your visitor will be asked to self-screen and do not enter if you have any COVID symptoms. - A mask is optional within the hospital at this time. Patients may have clear liquids (water, carbonated beverages, clear teas, apple juice) until 3 hours prior to surgery with a maximum of 20 ounces. - No food from midnight until time of surgery - Infants may have breast milk until 4 hours before surgery, formula 6 hours prior to surgery. - Children will be allowed to drink immediately following surgery. If applicable, please bring a bottle or sippy cup to assist with drinking. Juice, water, soda, and popsicles are readily available. For infants on formula, please bring formula the day of surgery. Pacifiers are allowed. Take the following medications with a SIP of water the morning of surgery: ____ESCITALOPRAM_, LEVOTHYROXINE DO NOT STOP ANY OF YOUR OTHER PRESCRIPTION MEDICATIONS PRIOR TO SURGERY ?EXCEPT THE FOLLOWING Medications to discontinue per physician ALL VITAMINS AND SUPPLEMENTS 3 DAYS PRE OP .LAST DOSE 03/29/23 HIBICLENS SHOWER DAY BEFORE SURGERY AND MORNING OF SURGERY BOWEL PREP PER DR NAJERA Please no make-up, nail ecuadorean, hairspray, perfume, deodorant, or body powder the day of surgery. No jewelry (including any body piercings) or valuables the day of surgery, leave them at home. Please take a shower or bath the night before, or the morning of, surgery with an antibacterial soap. Wear comfortable, loose fitting clothing. Children are encouraged to wear pajamas. - Jewelry must be removed prior to entering the operating room. Rings and piercings that are not removed may be cut off. - The hospital will not accept responsibility for valuables. - Please leave all valuables, including medications, at home the day of surgery. If you are going home after surgery, a licensed feeder driver must drive you home. - NO public transportation without another adult if you receive anesthesia. - We recommend that an adult stay with you for 24 hours following discharge. - We also recommend that you do not drive, make important decision, drink alcoholic beverages, or take any drugs that were not prescribed by your health care provider for at least 24 hours after your discharge time. For Pediatric surgeries, we recommend two adults accompany the child home. Follow any additional instructions given to you from your surgeon. If you or anyone in your household have experienced Covid symptoms in the past week, please notify your surgeon or the nurse liaison at the phone number below for possible testing. VERBAL AND WRITTEN instructions given to ___PATIENT and asked if any additional questions and then verbalized understanding. Patient advised to call surgeon office or pre surgery nurse liaison [phone] if any additional questions.
[2023-03-26 14:48] VITALS: BP 123/58; PULSE 73; RESP 18; TEMP 36.6; O2SAT 97
[2023-04-02] VITALS (11 sets, daily range): BP systolic 90–110; BP diastolic 41–68; PULSE 84–99; RESP 12–19; TEMP 36–37; O2SAT 94–100; BMI 26.1
--- NOTE | ~2023-04-02 | CT_ITS ---
EXAMINATION: CT abdomen pelvis w con DATE: 04/03/2023 16:24 INDICATION: Abdominal pain. Colon surgery yesterday. TECHNIQUE: Computed tomography (CT) of the abdomen and pelvis was performed with 100 mL Omnipaque 350 intravenous contrast. Automated exposure control and iterative reconstruction technique were employe d. The dose-length product was 690.40 mGy-cm. COMPARISON: CT abdomen and pelvis 01/23/2023 FINDINGS: The visualized portions of the lung bases demonstrate moderate atelectasis. A calcified lef t lung nodule and calcified left hilar lymph nodes are consistent with old granulomatous disease. No pleural effusion. The heart size is normal. No pericardial effusion. The liver and spleen are normal. The gallbladder is distended. The pancreas and adrenal glands are normal. There is a 3 mm stone in r ight kidney. There is a 5 mm cyst in left kidney. There is an anastomosis in the sigmoid colon. There are no dilated loops of bowel. The appendix measures 7 mm in diameter without change. There is a sma ll volume of ascites. There is peritoneal enhancement in the inferior peritoneum. There is fat strand ing in the inferior peritoneum. There is edema in the retroperitoneum. There is a small volume of lucian e intraperitoneal gas. There is extensive extraperitoneal gas in the abdominal and chest wall and in the pelvis. There is a right lower quadrant incisional hernia containing a wall of nonobstructed asce nding colon. There are no pathologically enlarged lymph nodes. There is severe thoracic and lumbar sp ondylosis. IMPRESSION: 1. Right lower quadrant incisional hernia containing a wall of nonobstructed ascending colon. 2. Small volume of ascites. 3. Small volume of free intraperitoneal gas and extensive distribution of extraperitoneal gas, consis tent with recent surgery. 4. Gallbladder distention, which may be secondary to fasting. Reviewed, dictated and finalized at location A. IMPRESSION: 1. Right lower quadrant incisional hernia containing a wall of nonobstructed as cending colon. 2. Small volume of ascites. 3. Small volume of free intraperitoneal gas and extensive distribution of extra peritoneal gas, consistent with recent surgery. 4. Gallbladder distention, which may be secondary to fasting.
--- NOTE | 2023-04-02 10:12 | WPDHPUPDATE1 ---
History and Physical Update Update Date/Time: 04/02/23 10:12 History and Physical has been reviewed, including an updated exam of the patient. There are NO changes in the patient's condition. Risks, benefits, and alternatives have been discussed and questions answered. Patient agrees to proceed with procedure.
[2023-04-02] MEDS: LACTATED RINGERS 1,000 ML 80 ML IV CONT (10:30)
[2023-04-02] MEDS: ACETAMINOPHEN 500 MG TABLET 1000 MG PO (10:42)
[2023-04-02] MEDS: KETOROLAC 15 MG/ML VIAL (*BKC) IV PUSH (10:43)
--- NOTE | 2023-04-02 10:47 | WPDANESEPPF ---
Anes - Initial Pre Proc Eval Procedure: Operation Date: 04/02/23 12:00 Proposed Procedures p Robotic Assisted Sigmoid Colectomy - Elsa Benavides MD Date/Time: 04/02/23 10:47 Surgeon: Elsa Benavides MD Pre Op Diagnosis: diverticulitis with abscess and stricture Patient Data Age: 72 Gender: F Height: 1.57 m Weight: 64.7 kg Last Vital Signs Temp 36.6 C 03/26/23 14:48 Pulse 73 03/26/23 14:48 Resp 18 03/26/23 14:48 BP 123/58 L 03/26/23 14:48 Pulse Ox 97 03/26/23 14:48 O2 Del Method Room Air 03/26/23 14:48 Allergies Allergy/AdvReac Type Severity Reaction Status Date / Time No Known Allergies Allergy Verified 04/02/23 10:26 Home Medications Medication Instructions Recorded Confirmed Type donepezil 5 mg tablet (Aricept) 5 mg PO QHS #90 tabs 07/17/22 03/26/23 Rx escitalopram oxalate 20 mg tablet 20 mg PO DAILY #90 tabs 12/27/22 03/26/23 Rx levothyroxine 50 mcg tablet 50 mcg PO DAILY 01/16/23 03/26/23 History (Euthyrox) atorvastatin 10 mg tablet 10 mg PO DAILY #90 tabs 03/05/23 03/26/23 Rx ciprofloxacin HCl 500 mg tablet 500 mg PO ONCE #1 tablet 03/16/23 03/26/23 Rx (Cipro) metronidazole 500 mg tablet See Rx Instructions .Route 03/16/23 03/26/23 Rx .COMPLEX #3 tabs [id number] tablet 1 tablet PO DAILY 03/26/23 03/26/23 History cholecalciferol (vitamin D3) 50 50 mcg PO DAILY 03/26/23 03/26/23 History mcg (2,000 unit) tablet cyclobenzaprine 10 mg tablet 10 mg PO TID PRN Leg cramps #20 03/26/23 04/02/23 Rx tabs multivitamin 1 tablet PO DAILY 03/26/23 03/26/23 History multivitamin with minerals 1 tablet PO DAILY 03/26/23 03/26/23 History (Hair,Skin and Nails tablet) Patient hx anesthesia problems: none Family hx anesthesia problems: none Results Review: All pre-operative results and documents have been reviewed as part of the pre-operative evaluation. [facility] Past Medical History Medical History Acute left-sided low back pain with sciatica Depression ETD (eustachian tube dysfunction) Mild cognitive impairment Status post fall Family History Family History Father Carcinoma of colon Other Family history of malignant neoplasm Social History Social History Social History: Single Smoking status: Never smoker Second hand tobacco smoke exposure: No Alcohol intake: current Drinks per week: 1 Alcohol use details: 2 DRINKS PER MONTH Substance use: never Substance use type: does not use Lack of Transportation: No Lack of Food: Never True Current Housing: I Have Housing Concerned About Future Housing: No Difficulty Paying Gas/Electric Bills: No Difficulty Paying for Meds: No Currently Unemployed: No Education: High School Diploma/GED Difficulty w/ Childcare or Family Care: No Living arrangements: alone Occupation/Education: retired Gender identity (if verbalized by the patient): Female Sexual Orientation (if Verbalized by the Patient): Straight or Heterosexual Spiritual care concerns: No Anes - Eval Final PreProcedure Day of Procedure 04/02/23 10:47 Patient weight: overweight Heart: regular rate and rhythm Lungs: clear to auscultation Airway: Mallampati scale class II Neurological: alert and oriented Last oral intake: >/= 8 hours ASA classification: III Emergent: no Anesthetic plan: proceed Anesthesia type and monitoring: general ETT and standard monitoring Results Review: All pre-operative results and documents have been reviewed as part of the pre-operative evaluation. Informed Consent: The patient's anesthetic plan and its attendant risks and benefits were discussed with the patient/family/POA. Questions were solicited and answers provided to the satisfaction of the patient/family/POA.
[2023-04-02] MEDS: ALVIMOPAN 12 MG CAPSULE PO (11:35)
[2023-04-02] MEDS: ceFAZolin 2 GM/D5W 50 ML 2 GM/50 ML BAG IVPB (11:50)
[2023-04-02] MEDS: metroNIDAZOLE 500 MG/ISO 100ML 500 MG/100 ML BAG 100 MG IVPB (11:55)
[2023-04-02] MEDS: BUPIVACAINE/EPINEPHRINE 0.25% 50 ML VIAL 30 ML INFILTRATE (13:16)
[2023-04-02] MEDS: ceFAZolin SODIUM 1 GM VIAL 2 GM IV PUSH (15:50)
[2023-04-02] MEDS: LACTATED RINGERS 1,000 ML 30 ML IV CONT ×2 (16:56→17:48)
--- NOTE | 2023-04-02 16:59 | W.PM.PROC2 ---
Procedure Note - Detailed Date of Procedure 04/02/23 Pre-op Diagnosis diverticulitis with abscess and stricture Post-op Diagnosis Same Procedure Performed Robotic assisted sigmoid colectomy, extensive lysis of adhesions of approximately 2 hours Surgeon Elsa Benavides MD Anesthesia General Indications 72-year-old female with multiple complicated episodes of diverticulitis, recently requiring percutaneous drainage of abscess now with noted diverticular stricture Findings abscess in the pelvis, extensive inflammation of small bowel and cecum within the pelvis requiring extensive lysis of adhesions Description of Procedure The patient was taken the operating room and placed in the supine position. After adequate induction general anesthesia, the patient was prepped and draped in the normal sterile fashion. A time-out was then done to verify the patient's identity, as well as the procedure being performed. I began by making a 8 mm incision in the left upper quadrant. I then placed a Veress needle into the peritoneal cavity and CO2 gas was then insufflated. After adequate pneumoperitoneum was achieved, an 8 mm Optiview trocar was placed through this incision. I then placed a laparoscopic open into the abdominal cavity. There was noted to be extensive inflammation adhesions in the pelvis and both lower quadrants. Given these findings, I went ahead and placed additional 8 mm trocars in the right mid abdomen, right lower abdomen, and an spa assistant manager 8 mm port in the right lateral mid abdomen. Using graspers and electric cautery I took down the adhesions of the cecum in the right lower quadrant to allow placement of additional port. Once this area was cleared, placed a 12 mm port under direct visualization. At this point the table was positioned and the robot was docked to the trocar sites. I then began a very tedious extensive lysis of adhesions in the pelvis and left lower abdomen. Upon dissection in the pelvis, there was noted to be an undrained abscess. This was drained and the entire cavity was completely explored. Again there was noted to be small bowel and cecum noted in the pelvis. This tedious lysis of adhesions took approximately 2 hours. Once I was finally able to free these structures from the pelvis they were swept cephalad out of the pelvis. I then was able to identify the left colon. There was noted to be an area of intense inflammation and stricture in the distal sigmoid colon. The proximal sigmoid colon was somewhat dilated, however there was no evidence of diverticulitis or active inflammation. I then began my medial to lateral dissection by making a window in the mesentery. I was able to identify the ureter posteriorly and this was kept out of the surgical field. I continued my dissection towards the rectum. I was able to identify the left colic vessels and these were taken down with the vessel sealer. Once to the upper rectum, I dissected around this area to allow transection. I then used a blue staple load to transect the distal sigmoid upper rectum. I then used the vessel sealer to take down the lateral attachments of the left colon connecting this with our medial dissection. I was then able to find a proximal transection point, ensuring this was proximal to the area of stricture. I then used ICG and firefly to ensure adequate perfusion in the proximal transection margin. The 12 mm right lower quadrant site was then converted to a small GelPort to allow placement of the anvil. I then made a colotomy in the specimen side and slid a 28 EEA anvil through the colotomy. Anvil was then brought out through the tinea on the stay side of the colon. I then purse-stringed the anvil using a 3 0 V lock suture. I then transected the proximal margin including colotomy using a blue staple load. The specimen was then placed in the right upper quadrant for retrieval later in the case. There was noted to be adequate length of the proximal colon to t
[2023-04-02] MEDS: fentaNYL CITRATE INJ (*CRX) 100 MCG/2 ML VIAL 25 MCG IV PUSH ×4 (17:40→17:55)
--- NOTE | 2023-04-02 18:35 | ADMGEN ---
This patient, Cuca More, was admitted to 3 Med Surg Room 301-01 at 1825. Patient/family oriented to hospital policies and general routines including ID bracelet, bed and alarms, visiting hours, pain management, procedures, bathroom and other care routines, personal items, smoking policy, room service/diet, and visiting hours. Information on how to activate the Rapid Response Team has been discussed. Patient/Family are encouraged to report perceived risks to care and to ask questions if they do not understand what they are told or what they should do.
[2023-04-02] MEDS: PIPERACILLN/TAZ 3.375GM/NS50ML 3.375 GM/50 ML BAG IVPB ×2 (18:51→23:10)
[2023-04-02] MEDS: LACTATED RINGERS 1,000 ML 100 ML IV CONT (18:52)
[2023-04-02] MEDS: ONDANSETRON INJ 4 MG/2 ML VIAL IV PUSH (18:52)
[2023-04-02] MEDS: FAMOTIDINE 20 MG/2 ML VIAL IV PUSH (20:03)
[2023-04-02] MEDS: MORPHINE SULFATE (*CRX) 2 MG/ML INJ IV PUSH (20:45)
[2023-04-02] MEDS: MORPHINE SULFATE (*CRX) 4 MG/ML INJ IV PUSH (23:12)
[2023-04-03 03:38] VITALS: BP 120/55; PULSE 102; RESP 18; TEMP 36.2; O2SAT 92
[2023-04-03] MEDS: MORPHINE SULFATE (*CRX) 4 MG/ML INJ IV PUSH ×3 (04:23→19:59)
[2023-04-03] MEDS: LACTATED RINGERS 1,000 ML 100 ML IV CONT ×2 (04:24→19:56)
[2023-04-03] MEDS: PIPERACILLN/TAZ 3.375GM/NS50ML 3.375 GM/50 ML BAG IVPB ×4 (05:31→23:04)
[2023-04-03 07:19] LABS: Basophils Percent Auto 0.2 % (0.2-1.2); Hematocrit 33.1 % (37.0-47.0); Hemoglobin 10.3 g/dL (12.0-15.0); Immature Granulocyte Absolute 0.04 K/mm3 (0.00-0.031); Immature Granulocyte Percent A 0.3 % (0-0.5); Lymphocytes Absolute Auto 1.25 K/mm3 (0.9-3.2); Lymphocytes Percent Auto 9.5 % (18.3-44.2); Mean Corpuscular HGB Conc 31.1 g/dl (32-36); Mean Corpuscular Hemoglobin 31.2 pg (26-34); Mean Corpuscular Volume 100.3 fl (80-100); Mean Platelet Volume 10.4 fl (7.4-10.4); Monocytes Absolute Auto 1.3 K/mm3 (0.1-0.6); Monocytes Percent Auto 10.1 % (2.6-8.5); Neutrophils Absolute Auto 10.5 K/mm3 (1.3-6.7); Neutrophils Percent Auto 79.9 % (45.5-73.1); Platelet Count Result 226 k/mm3 (150-375); Red Cell Distribution Width 14.7 % (11.5-14.5); White Blood Count 13.1 K/mm3 (4.5-10.0)
[2023-04-03 07:32] LABS: Anion Gap 2 mmol/L (8-16); Blood Urea Nitrogen 16 mg/dL (7-17); Calcium 8.5 mg/dL (8.4-10.2); Carbon Dioxide 26 mmol/L (22-30); Chloride 105 mmol/L (98-107); Estimated CRCL calculation 47 ml/min; Estimated Glomerular Filt Rate > 60; Glucose 108 mg/dL (65-110); Sodium 133 mmol/L (137-145)
[2023-04-03 07:42] VITALS: BP 105/46; PULSE 97; RESP 20; TEMP 36.3; O2SAT 92
[2023-04-03] MEDS: ENOXAPARIN 40 MG/0.4 ML SYRINGE SUB-Q (08:54)
[2023-04-03] MEDS: FAMOTIDINE 20 MG/2 ML VIAL IV PUSH ×2 (08:54→19:53)
--- NOTE | 2023-04-03 09:12 | WPDANESPN ---
Anes - Prog Note Post-Op Date/Time: 04/03/23 09:12 Cardiovascular status: normal Respiratory status: normal Airway patency: baseline Mental status: baseline Post-Op hydration status: normal Vital Signs: Last Vital Signs Temp 36.3 C L 04/03/23 07:42 Pulse 97 04/03/23 07:42 Resp 20 04/03/23 07:42 BP 105/46 L 04/03/23 07:42 Pulse Ox 92 04/03/23 07:42 O2 Del Method Room Air 04/02/23 20:00 O2 Flow Rate 2 04/02/23 18:10 Pain Score (VAS): 0 I/O: Intake & Output 04/02/23 04/03/23 04/03/23 23:59 07:59 15:59 Intake Total 900 1050 Output Total 150 Balance 900 900 Laboratory Tests 04/03/23 06:06 04/03/23 06:06 04/03/23 06:06 WBC 13.1 H RBC 3.30 L Hgb 10.3 L Hct 33.1 L MCV 100.3 H MCH 31.2 MCHC 31.1 L RDW 14.7 H Plt Count 226 MPV 10.4 Immature Gran % (Auto) 0.3 Neut % (Auto) 79.9 H Lymph % (Auto) 9.5 L [place] % (Auto) 10.1 H Eos % (Auto) 0.0 Baso % (Auto) 0.2 Lymph # (Auto) 1.25 [place] # (Auto) 1.3 H Eos # (Auto) 0.0 Baso # (Auto) 0.0 Abs Immat Gran (auto) 0.04 H Absolute Neuts (auto) 10.5 H Absolute Nucleated RBC 0.0 Nucleated RBC % 0.0 Sodium 133 L Potassium 4.0 Chloride 105 Carbon Dioxide 26 Anion Gap 2 L BUN 16 Creatinine 0.90 Estim Creat Clear Calc 47 Estimated GFR > 60 Glucose 108 Calcium 8.5 Post-procedural complaints: none Patient Feedback: Patient satisfied with anesthetic care.
[2023-04-03] MEDS: MORPHINE SULFATE (*CRX) 2 MG/ML INJ IV PUSH (11:36)
[2023-04-03] MEDS: ONDANSETRON INJ 4 MG/2 ML VIAL IV PUSH (11:36)
[2023-04-03 11:37] VITALS: BMI 30.6
--- NOTE | 2023-04-03 15:24 | PM.PNGS ---
Progress Note: A&P Assessment and Plan (1) Diverticulitis of intestine with perforation and abscess: Code(s): K57.80 - Diverticulitis of intestine, part unspecified, with perforation and abscess without bleeding Status: Acute Assessment and Plan: will get stat CT to evaluate, labs and vitals ok Subjective Subjective Date/Time Seen: 04/03/23 15:24 Interval history: c/o severe abdominal pain, unable to get comfortable Review of Systems Review of Systems: All systems reviewed & are unremarkable except as noted in HPI and below Exam Const: General: cooperative, in distress moderate and uncomfortable Resp: Auscultation: clear to auscultation bilaterally Cardio: Rate: regular rate Rhythm: regular rhythm GI: Inspection: distended and incision GI Palp: Yes abdominal tenderness, Yes Soft to palpation, Yes Tenderness to palpation present (GI), No Guarding due to palpation present (GI) and No Rigid due to palpation Skin: General skin exam: normal color Objective Data Vital Signs Vital Signs: Vital Signs - 24 hr 04/02/23 16:56 04/02/23 17:10 04/02/23 17:25 Temperature 37.0 C Pulse Rate 99 84 90 Respiratory Rate 19 14 12 Blood Pressure 90/67 L 95/48 L 110/59 L Pulse Oximetry 100 100 100 Oxygen Delivery Simple Face Mask Simple Face Mask Simple Face Mask Oxygen Flow Rate 8 8 8 04/02/23 17:40 04/02/23 17:55 04/02/23 18:10 Temperature Pulse Rate 92 89 88 Respiratory Rate 14 12 12 Blood Pressure 109/64 97/41 L 92/48 L Pulse Oximetry 100 100 100 Oxygen Delivery Nasal Cannula Nasal Cannula Nasal Cannula Oxygen Flow Rate 2 2 2 04/02/23 18:25 04/02/23 18:39 04/02/23 20:12 Temperature 36.0 C L 36.2 C L Pulse Rate 91 90 98 Respiratory Rate 14 14 18 Blood Pressure 103/67 102/68 110/60 Pulse Oximetry 98 94 95 Oxygen Delivery Oxygen Flow Rate 04/02/23 20:00 04/02/23 23:25 04/03/23 03:38 Temperature 36.6 C 36.2 C L Pulse Rate 97 102 H Respiratory Rate 18 18 Blood Pressure 110/55 L 120/55 L Pulse Oximetry 95 92 Oxygen Delivery Room Air Oxygen Flow Rate 04/03/23 07:42 Temperature 36.3 C L Pulse Rate 97 Respiratory Rate 20 Blood Pressure 105/46 L Pulse Oximetry 92 Oxygen Delivery Oxygen Flow Rate Intake/Output Intake/Output: Intake & Output 03/31/23 04/01/23 04/02/23 04/03/23 23:59 23:59 23:59 23:59 Intake Total 1050 1288 Output Total 150 Balance 1050 1138 Meds/Results Medications: Active Medications Generic Name Dose Route Start Last Admin Trade Name Freq PRN Reason Stop Dose Admin Enoxaparin Sodium 40 mg 04/03/23 09:00 04/03/23 08:54 Enoxaparin 40 Mg/0.4 Ml Syringe SUB-Q 40 mg DAILY ZORAIDA Administration Famotidine 20 mg 04/02/23 21:00 04/03/23 08:54 Famotidine 20 Mg/2 Ml Vial IV PUSH 20 mg Q12HR ZORAIDA Administration Lactated Ringer's 1,000 mls @ 100 mls/hr 04/02/23 16:55 04/03/23 04:24 Lr - Lactated Ringers Iv IV CONT 100 mls/hr .Q10H ZORAIDA Administration Piperacillin/Tazobactam/Dextrose 3.375 gm in 50 mls @ 100 mls/hr 04/02/23 18:00 04/03/23 11:36 Zosyn 3.375 Gm/Ns 50 Ml IVPB 100 mls/hr Q6H ZORAIDA Administration Morphine Sulfate 2 mg 04/02/23 16:54 04/03/23 11:36 Morphine Sulfate (*Crx) 2 Mg/Ml Inj IV PUSH 2 mg Q2H PRN Administration Pain Rated 4-6 Morphine Sulfate 4 mg 04/02/23 16:54 04/03/23 15:07 Morphine Sulfate (*Crx) 4 Mg/Ml Inj IV PUSH 4 mg Q2H PRN Administration Pain Rated 7-10 Naloxone HCl 0.1 mg 04/02/23 16:54 Naloxone Hcl 0.4 Mg/Ml Vial IV PUSH Q2M PRN Opiate Reversal Ondansetron HCl 4 mg 04/02/23 10:48 Ondansetron Inj 4 Mg/2 Ml Vial IV PUSH ONCE PRN Nausea Ondansetron HCl 4 mg 04/02/23 16:54 04/03/23 11:36 Ondansetron Inj 4 Mg/2 Ml Vial IV PUSH 4 mg Q4H PRN Administration Nausea And Vomiting Labs Labs: Laboratory Results - last 24 hr 04/03/23 06:06 WBC 13.1 H RBC 3.30 L
[2023-04-03 16:01] VITALS: BP 124/53; PULSE 109; RESP 22; TEMP 36.7; O2SAT 90
--- NOTE | 2023-04-03 19:36 | PC.NURSE ---
Pt has reported pain and has been treated with PRN pain medication. Pt continued to experience pain and reported feeling the need to urinate despite having a yo. Pt had minimal urine output even though she is receiving fluids. Pt had yo removed and this seemed to help alleviate some pain. Pt urinating fine. Pt had bright red rectal bleeding and provider was notified. Pt ordered STAT CT due to pain and bleeding. Provider stated CT was ok and ordered a BLUE CRABBER pump for pain, but pt was not compliant with staying in bed or using the call light. Provider notified that RN was not comfortable starting BLUE CRABBER with patients noncompliance with the call light. Provider okayed holding off on starting BLUE CRABBER and trying to control pain with PRN medication. Bed alarm is on. Pt has intermittent confusion and is unsteady at times. Pt monitored for any changes in status. Informed night auditor RN of communication with provider regarding BLUE CRABBER, compliance, and PRN medication. security shift supervisor RN verbalized understanding. Left order out incase needed, will speak with provider and address order in the morning.
[2023-04-03] MEDS: LORazepam INJ (*CRX) 2 MG/ML VIAL 0.5 MG IV PUSH (19:54)
[2023-04-03 20:00] VITALS: O2SAT 90
[2023-04-03 22:00] VITALS: BP 139/58; PULSE 106; RESP 18; TEMP 36.9; O2SAT 90
[2023-04-04] MEDS: MORPHINE SULFATE (*CRX) 4 MG/ML INJ IV PUSH ×3 (00:48→21:37)
[2023-04-04] MEDS: LACTATED RINGERS 1,000 ML 100 ML IV CONT ×3 (05:35→20:23)
[2023-04-04] MEDS: PIPERACILLN/TAZ 3.375GM/NS50ML 3.375 GM/50 ML BAG IVPB ×3 (05:36→17:52)
[2023-04-04 06:00] VITALS: BP 107/52; PULSE 103; RESP 18; TEMP 36.7; O2SAT 95
[2023-04-04 06:31] LABS: Mean Corpuscular HGB Conc 30.3 g/dl (32-36); Mean Corpuscular Hemoglobin 31.8 pg (26-34); Mean Corpuscular Volume 105.1 fl (80-100); Mean Platelet Volume 9.8 fl (7.4-10.4); Platelet Count Result 184 k/mm3 (150-375); Red Blood Count 3.14 M/mm3 (4.2-5.4); White Blood Count 10.6 K/mm3 (4.5-10.0)
[2023-04-04 06:51] LABS: Anion Gap 5 mmol/L (8-16); Blood Urea Nitrogen 12 mg/dL (7-17); Calcium 8.2 mg/dL (8.4-10.2); Carbon Dioxide 24 mmol/L (22-30); Chloride 103 mmol/L (98-107); Estimated CRCL calculation 60 ml/min; Estimated Glomerular Filt Rate > 60; Glucose 102 mg/dL (65-110); Potassium 3.8 mmol/L (3.4-5.0); Sodium 132 mmol/L (137-145)
[2023-04-04] MEDS: ENOXAPARIN 40 MG/0.4 ML SYRINGE SUB-Q (09:43)
[2023-04-04] MEDS: FAMOTIDINE 20 MG/2 ML VIAL IV PUSH ×2 (09:43→21:36)
[2023-04-04] MEDS: LORazepam INJ (*CRX) 2 MG/ML VIAL 0.5 MG IV PUSH (12:51)
--- NOTE | 2023-04-04 13:33 | PM.PNGS ---
Progress Note: A&P Assessment and Plan (1) Diverticulitis of intestine with perforation and abscess: Code(s): K57.80 - Diverticulitis of intestine, part unspecified, with perforation and abscess without bleeding Status: Acute Assessment and Plan: exam improved today, encourage OOB/IS, PT/OT, cont clears for now Subjective Subjective Date/Time Seen: 04/04/23 13:33 Interval history: feels a little better today, still c abd pain shanta c movt Review of Systems Review of Systems: All systems reviewed & are unremarkable except as noted in HPI and below Exam Const: General: cooperative, no acute distress and uncomfortable Resp: Auscultation: clear to auscultation bilaterally Cardio: Rate: regular rate Rhythm: regular rhythm GI: Inspection: normal to inspection, distended and incision GI Palp: Yes abdominal tenderness, Yes Soft to palpation, Yes Tenderness to palpation present (GI), No Guarding due to palpation present (GI) and No Rigid due to palpation Objective Data Vital Signs Vital Signs: Vital Signs - 24 hr 04/03/23 16:01 04/03/23 20:00 04/03/23 22:00 Temperature 36.7 C 36.9 C Pulse Rate 109 H 106 H Respiratory Rate 22 H 18 Blood Pressure 124/53 L 139/58 L Pulse Oximetry 90 90 90 Oxygen Delivery Nasal Cannula Oxygen Flow Rate 2 04/04/23 06:00 Temperature 36.7 C Pulse Rate 103 H Respiratory Rate 18 Blood Pressure 107/52 L Pulse Oximetry 95 Oxygen Delivery Oxygen Flow Rate Intake/Output Intake/Output: Intake & Output 04/01/23 04/02/23 04/03/23 04/04/23 23:59 23:59 23:59 23:59 Intake Total 1050 2960 1590 Output Total 150 Balance 1050 2810 1590 Meds/Results Medications: Active Medications Generic Name Dose Route Start Last Admin Trade Name Freq PRN Reason Stop Dose Admin Enoxaparin Sodium 40 mg 04/03/23 09:00 04/04/23 09:43 Enoxaparin 40 Mg/0.4 Ml Syringe SUB-Q 40 mg DAILY ZORAIDA Administration Famotidine 20 mg 04/02/23 21:00 04/04/23 09:43 Famotidine 20 Mg/2 Ml Vial IV PUSH 20 mg Q12HR ZORAIDA Administration Lactated Ringer's 1,000 mls @ 100 mls/hr 04/02/23 16:55 04/04/23 05:35 Lr - Lactated Ringers Iv IV CONT 100 mls/hr .Q10H ZORAIDA Administration Piperacillin/Tazobactam/Dextrose 3.375 gm in 50 mls @ 100 mls/hr 04/02/23 18:00 04/04/23 12:51 Zosyn 3.375 Gm/Ns 50 Ml IVPB 100 mls/hr Q6H ZORAIDA Administration Morphine Sulfate 30 mg in 30 mls @ 0 mls/hr 04/03/23 17:00 Morphine Sulfate Saddle Mechanic IV CONT PRN PRN HEARTH [employer]ER Management Protocol 0 MG/HR Lorazepam 0.5 mg 04/03/23 16:33 04/04/23 12:51 Lorazepam Inj (*Crx) 2 Mg/Ml Vial IV PUSH 0.5 mg Q6H PRN Administration Anxiety Morphine Sulfate 2 mg 04/02/23 16:54 04/03/23 11:36 Morphine Sulfate (*Crx) 2 Mg/Ml Inj IV PUSH 2 mg Q2H PRN Administration Pain Rated 4-6 Morphine Sulfate 4 mg 04/02/23 16:54 04/04/23 04:22 Morphine Sulfate (*Crx) 4 Mg/Ml Inj IV PUSH 4 mg Q2H PRN Administration Pain Rated 7-10 Naloxone HCl 0.1 mg 04/02/23 16:54 Naloxone Hcl 0.4 Mg/Ml Vial IV PUSH Q2M PRN Opiate Reversal Ondansetron HCl 4 mg 04/02/23 10:48 Ondansetron Inj 4 Mg/2 Ml Vial IV PUSH ONCE PRN Nausea Ondansetron HCl 4 mg 04/02/23 16:54 04/03/23 11:36 Ondansetron Inj 4 Mg/2 Ml Vial IV PUSH 4 mg Q4H PRN Administration Nausea And Vomiting Radiology Results: ITS Impressions Abdomen/Pelvis CT 04/03/23 16:27 IMPRESSION: 1. Right lower quadrant incisional hernia containing a wall of nonobstructed ascending colon. 2. Small volume of ascites. 3. Small volume of free intraperitoneal gas and extensive distribution of extraperitoneal gas, consistent with recent surgery. 4. Gallbladder distention, which may be secondary to fasting. Labs Labs: Laboratory Results - last 24 hr 04/04/23 05:55 WBC 10.6 H RBC 3.14 L Hgb 10.0 L Hct 33.0 L MCV 105.1 H MCH 31.8
[2023-04-04 15:14] VITALS: BP 100/36; PULSE 93; RESP 19; TEMP 36.7; O2SAT 100
--- NOTE | 2023-04-04 18:41 | PC.NURSE ---
Pt has increased unsteadiness and confusion. Provider was notified. Provider ordered PT/OT for pt. Pt denies pain, but reports being anxious. Pt has been monitored for any other changes in status. Pt continues to not be compliant with care. Will continue to monitor pt.
[2023-04-04 20:16] VITALS: BP 127/61; PULSE 103; RESP 14; TEMP 36.3; O2SAT 90
[2023-04-04 20:20] VITALS: PULSE 100; O2SAT 95
[2023-04-05] MEDS: PIPERACILLN/TAZ 3.375GM/NS50ML 3.375 GM/50 ML BAG IVPB ×4 (00:05→23:10)
[2023-04-05 06:57] VITALS: BP 101/55; PULSE 65; RESP 16; TEMP 36.3; O2SAT 92
[2023-04-05 08:00] VITALS: O2SAT 87
[2023-04-05] MEDS: FAMOTIDINE 20 MG/2 ML VIAL IV PUSH ×2 (08:20→20:44)
[2023-04-05] MEDS: ENOXAPARIN 40 MG/0.4 ML SYRINGE SUB-Q (08:20)
[2023-04-05 08:25] VITALS: O2SAT 96
[2023-04-05 09:15] VITALS: O2SAT 96
--- NOTE | 2023-04-05 12:43 | PM.PNGS ---
Progress Note: A&P Assessment and Plan (1) Diverticulitis of intestine with perforation and abscess: Code(s): K57.80 - Diverticulitis of intestine, part unspecified, with perforation and abscess without bleeding Status: Acute Assessment and Plan: +flatus, will ADAT, encourage OOB/IS, PT/OT, path reviewed Subjective Subjective Date/Time Seen: 04/05/23 12:43 Interval history: feels better today, more alert, still c/o pain c movt Review of Systems Review of Systems: All systems reviewed & are unremarkable except as noted in HPI and below Exam Const: General: cooperative, comfortable and no acute distress Resp: Auscultation: diminished lung sounds Cardio: Rate: regular rate Rhythm: regular rhythm GI: Inspection: normal to inspection, distended and incision GI Palp: Yes abdominal tenderness, Yes Soft to palpation, Yes Tenderness to palpation present (GI), No Guarding due to palpation present (GI) and No Rigid due to palpation Objective Data Vital Signs Vital Signs: Vital Signs - 24 hr 04/04/23 13:47 04/04/23 15:14 04/04/23 20:16 Temperature 36.7 C 36.3 C L Pulse Rate 93 103 H Respiratory Rate 19 14 Blood Pressure 100/36 L 127/61 Pulse Oximetry 100 90 Oxygen Delivery Room Air Oxygen Flow Rate 04/04/23 20:20 04/05/23 06:57 04/05/23 08:25 Temperature 36.3 C L Pulse Rate 100 65 Respiratory Rate 16 Blood Pressure 101/55 L Pulse Oximetry 95 92 96 Oxygen Delivery Nasal Cannula Nasal Cannula Oxygen Flow Rate 2 2 04/05/23 08:00 04/05/23 09:15 Temperature Pulse Rate Respiratory Rate Blood Pressure Pulse Oximetry 87 L 96 Oxygen Delivery Autopap Room Air Oxygen Flow Rate Intake/Output Intake/Output: Intake & Output 04/02/23 04/03/23 04/04/23 04/05/23 23:59 23:59 23:59 23:59 Intake Total 1050 2960 3690 200 Output Total 150 Balance 1050 2810 3690 200 Meds/Results Medications: Active Medications Generic Name Dose Route Start Last Admin Trade Name Freq PRN Reason Stop Dose Admin Enoxaparin Sodium 40 mg 04/03/23 09:00 04/05/23 08:20 Enoxaparin 40 Mg/0.4 Ml Syringe SUB-Q 40 mg DAILY ZORAIDA Administration Famotidine 20 mg 04/02/23 21:00 04/05/23 08:20 Famotidine 20 Mg/2 Ml Vial IV PUSH 20 mg Q12HR ZORAIDA Administration Lactated Ringer's 1,000 mls @ 100 mls/hr 04/02/23 16:55 04/04/23 20:23 Lr - Lactated Ringers Iv IV CONT 100 mls/hr .Q10H ZORAIDA Administration Piperacillin/Tazobactam/Dextrose 3.375 gm in 50 mls @ 100 mls/hr 04/02/23 18:00 04/05/23 07:29 Zosyn 3.375 Gm/Ns 50 Ml IVPB Not Given Q6H ZORAIDA Lorazepam 0.5 mg 04/03/23 16:33 04/04/23 12:51 Lorazepam Inj (*Crx) 2 Mg/Ml Vial IV PUSH 0.5 mg Q6H PRN Administration Anxiety Morphine Sulfate 2 mg 04/02/23 16:54 04/03/23 11:36 Morphine Sulfate (*Crx) 2 Mg/Ml Inj IV PUSH 2 mg Q2H PRN Administration Pain Rated 4-6 Morphine Sulfate 4 mg 04/02/23 16:54 04/04/23 21:37 Morphine Sulfate (*Crx) 4 Mg/Ml Inj IV PUSH 4 mg Q2H PRN Administration Pain Rated 7-10 Naloxone HCl 0.1 mg 04/02/23 16:54 Naloxone Hcl 0.4 Mg/Ml Vial IV PUSH Q2M PRN Opiate Reversal Ondansetron HCl 4 mg 04/02/23 10:48 Ondansetron Inj 4 Mg/2 Ml Vial IV PUSH ONCE PRN Nausea Ondansetron HCl 4 mg 04/02/23 16:54 04/03/23 11:36 Ondansetron Inj 4 Mg/2 Ml Vial IV PUSH 4 mg Q4H PRN Administration Nausea And Vomiting Radiology Results: ITS Impressions Abdomen/Pelvis CT 04/03/23 16:27 IMPRESSION: 1. Right lower quadrant incisional hernia containing a wall of nonobstructed ascending colon. 2. Small volume of ascites. 3. Small volume of free intraperitoneal gas and extensive distribution of extraperitoneal gas, consistent with recent surgery. 4. Gallbladder distention, which may be secondary to fasting.
[2023-04-05] MEDS: MORPHINE SULFATE (*CRX) 2 MG/ML INJ IV PUSH ×4 (12:52→23:08)
[2023-04-05 14:00] VITALS: BP 112/52; PULSE 92; RESP 16; TEMP 37.4; O2SAT 98
[2023-04-05] MEDS: LACTATED RINGERS 1,000 ML 100 ML IV CONT (15:25)
[2023-04-05 21:50] VITALS: BP 124/61; PULSE 91; RESP 16; TEMP 36.9; O2SAT 96
[2023-04-06] MEDS: LACTATED RINGERS 1,000 ML 100 ML IV CONT ×3 (01:49→23:02)
[2023-04-06] MEDS: MORPHINE SULFATE (*CRX) 2 MG/ML INJ IV PUSH ×6 (01:49→20:34)
[2023-04-06] MEDS: PIPERACILLN/TAZ 3.375GM/NS50ML 3.375 GM/50 ML BAG IVPB (05:05)
[2023-04-06 06:00] VITALS: BP 124/62; PULSE 85; RESP 18; TEMP 36.2; O2SAT 93
[2023-04-06 06:24] LABS: Hematocrit 26.6 % (37.0-47.0); Hemoglobin 8.4 g/dL (12.0-15.0); Mean Corpuscular HGB Conc 31.6 g/dl (32-36); Mean Corpuscular Hemoglobin 31.2 pg (26-34); Mean Corpuscular Volume 98.9 fl (80-100); Mean Platelet Volume 9.2 fl (7.4-10.4); Platelet Count Result 213 k/mm3 (150-375); Red Blood Count 2.69 M/mm3 (4.2-5.4); Red Cell Distribution Width 14.6 % (11.5-14.5); White Blood Count 6.1 K/mm3 (4.5-10.0)
[2023-04-06 06:45] LABS: Anion Gap 2 mmol/L (8-16); Blood Urea Nitrogen 6 mg/dL (7-17); Carbon Dioxide 31 mmol/L (22-30); Chloride 106 mmol/L (98-107); Estimated CRCL calculation 65 ml/min; Estimated Glomerular Filt Rate > 60; Glucose 92 mg/dL (65-110); Potassium 3.2 mmol/L (3.4-5.0); Sodium 139 mmol/L (137-145)
[2023-04-06 08:00] VITALS: O2SAT 93
[2023-04-06] MEDS: FAMOTIDINE 20 MG/2 ML VIAL IV PUSH ×2 (09:00→20:15)
[2023-04-06] MEDS: ENOXAPARIN 40 MG/0.4 ML SYRINGE SUB-Q (09:00)
--- NOTE | 2023-04-06 09:43 | PCNFU ---
Nutrition Follow-Up Complete: Inadequate energy intake related to diet order as evidenced by clear liquid status Diet advanced, tolerated - Progressing PO intake greater than 50% of meals - Progressing Goal: Pt current nutrition is Heart healthy diet. Ensure surgery ordered. Intakes about 50% breakfast since diet advanced. Nutrition recommendation: Oral nutrition supplement: Ensure Compact BID for additional 220 kcal and 9 g protein each Last recorded weight is 68.3 kg. Bowel Motility: + 1 BM today 04/06/23 Labs Reviewed: Hgb 8.4, Hct 26.6, K+ 3.2, BUN 6, Cre 0.6 Meds Noted: Lovenox, zofran Skin: WNL Additional Notes: Diet was advanced this morning. Pt is feeling better and able to eat cream of wheat and orange juice this morning. Agreeable to vanilla Ensure BID. Monitor diet order, intake, wt, labs. Follow up in 3 days.
--- NOTE | 2023-04-06 11:06 | PCOTNOTE ---
Patient declined therapy services at this time. Patient stated she is feeling bad right now and having very loose stools. Patient stated she just back back into bed and is not doing anything.
--- NOTE | 2023-04-06 12:08 | PM.PNGS ---
Progress Note: A&P Assessment and Plan (1) Diverticulitis of intestine with perforation and abscess: Code(s): K57.80 - Diverticulitis of intestine, part unspecified, with perforation and abscess without bleeding Status: Acute Assessment and Plan: doing well, cont routine postop care, encourage OOB/IS, ADAT, dc abx Subjective Subjective Date/Time Seen: 04/06/23 12:08 Interval history: much improved today, still c incisional pain, +bowel fxn, roselyn full liquids Review of Systems Review of Systems: All systems reviewed & are unremarkable except as noted in HPI and below Exam Const: General: cooperative, comfortable and no acute distress Resp: Auscultation: clear to auscultation bilaterally Cardio: Rate: regular rate Rhythm: regular rhythm GI: Inspection: normal to inspection, Abdominal wall edema, distended and incision GI Palp: Yes abdominal tenderness, Yes Soft to palpation, Yes Tenderness to palpation present (GI), No Guarding due to palpation present (GI) and No Rigid due to palpation Objective Data Vital Signs Vital Signs: Vital Signs - 24 hr 04/05/23 14:00 04/05/23 20:00 04/05/23 21:50 Temperature 37.4 C 36.9 C Pulse Rate 92 91 Respiratory Rate 16 16 Blood Pressure 112/52 L 124/61 Pulse Oximetry 98 96 Oxygen Delivery Room Air 04/06/23 06:00 04/06/23 08:00 Temperature 36.2 C L Pulse Rate 85 Respiratory Rate 18 Blood Pressure 124/62 Pulse Oximetry 93 93 Oxygen Delivery Room Air Intake/Output Intake/Output: Intake & Output 04/03/23 04/04/23 04/05/23 04/06/23 23:59 23:59 23:59 23:59 Intake Total 2960 3690 1910 2000 Output Total 150 200 200 Balance 2810 3690 1710 1800 Meds/Results Medications: Active Medications Generic Name Dose Route Start Last Admin Trade Name Freq PRN Reason Stop Dose Admin Enoxaparin Sodium 40 mg 04/03/23 09:00 04/06/23 09:00 Enoxaparin 40 Mg/0.4 Ml Syringe SUB-Q 40 mg DAILY ZORAIDA Administration Famotidine 20 mg 04/02/23 21:00 04/06/23 09:00 Famotidine 20 Mg/2 Ml Vial IV PUSH 20 mg Q12HR ZORAIDA Administration Lactated Ringer's 1,000 mls @ 100 mls/hr 04/02/23 16:55 04/06/23 01:49 Lr - Lactated Ringers Iv IV CONT 100 mls/hr .Q10H ZORAIDA Administration Lorazepam 0.5 mg 04/03/23 16:33 04/04/23 12:51 Lorazepam Inj (*Crx) 2 Mg/Ml Vial IV PUSH 0.5 mg Q6H PRN Administration Anxiety Morphine Sulfate 2 mg 04/02/23 16:54 04/06/23 05:05 Morphine Sulfate (*Crx) 2 Mg/Ml Inj IV PUSH 2 mg Q2H PRN Administration Pain Rated 4-6 Morphine Sulfate 4 mg 04/02/23 16:54 04/04/23 21:37 Morphine Sulfate (*Crx) 4 Mg/Ml Inj IV PUSH 4 mg Q2H PRN Administration Pain Rated 7-10 Naloxone HCl 0.1 mg 04/02/23 16:54 Naloxone Hcl 0.4 Mg/Ml Vial IV PUSH Q2M PRN Opiate Reversal Ondansetron HCl 4 mg 04/02/23 10:48 Ondansetron Inj 4 Mg/2 Ml Vial IV PUSH ONCE PRN Nausea Ondansetron HCl 4 mg 04/02/23 16:54 04/03/23 11:36 Ondansetron Inj 4 Mg/2 Ml Vial IV PUSH 4 mg Q4H PRN Administration Nausea And Vomiting Radiology Results: ITS Impressions Abdomen/Pelvis CT 04/03/23 16:27 IMPRESSION: 1. Right lower quadrant incisional hernia containing a wall of nonobstructed ascending colon. 2. Small volume of ascites. 3. Small volume of free intraperitoneal gas and extensive distribution of extraperitoneal gas, consistent with recent surgery. 4. Gallbladder distention, which may be secondary to fasting. Labs Labs: Laboratory Results - last 24 hr 04/06/23 05:49 WBC 6.1 RBC 2.69 L Hgb 8.4 L Hct 26.6 L MCV 98.9 D MCH 31.2 MCHC 31.6 L RDW 14.6 H Plt Count 213 MPV 9.2 Sodium 139 Potassium 3.2 L Chloride 106 Carbon Dioxide 31 H Anion Gap 2 L BUN 6 L D Creatinine 0.60 L Estim Creat Clear Calc 65 Estimated GFR > 60 Glucose 92 Calcium 8.0 L
[2023-04-06] MEDS: ONDANSETRON INJ 4 MG/2 ML VIAL IV PUSH (14:30)
[2023-04-06 14:34] VITALS: BP 101/74; PULSE 99; RESP 18; TEMP 36.4; O2SAT 99
[2023-04-06 20:00] VITALS: O2SAT 97
[2023-04-06] MEDS: LORazepam INJ (*CRX) 2 MG/ML VIAL 0.5 MG IV PUSH (20:34)
[2023-04-06 21:04] VITALS: BP 130/64; PULSE 87; RESP 18; TEMP 36.5; O2SAT 96
[2023-04-07] MEDS: MORPHINE SULFATE (*CRX) 2 MG/ML INJ IV PUSH (00:27)
[2023-04-07 06:00] VITALS: BP 133/67; PULSE 88; RESP 18; TEMP 36.3; O2SAT 95
--- NOTE | 2023-04-07 06:28 | PC.NURSE ---
pt is agitated this morning and refusing any medication, oftened pain medication and anxiety medication pt declined. Md Quarles informed pt wishing to possible leave [facility].
--- NOTE | 2023-04-07 06:37 | PC.NURSE ---
pt refusing care refusing to take vital signs this morning
[2023-04-07 08:00] VITALS: PULSE 88; RESP 18; O2SAT 95
[2023-04-07] MEDS: ENOXAPARIN 40 MG/0.4 ML SYRINGE SUB-Q (09:09)
[2023-04-07] MEDS: FAMOTIDINE 20 MG/2 ML VIAL IV PUSH ×2 (09:58→20:13)
--- NOTE | 2023-04-07 10:07 | PM.PNGS ---
Progress Note: A&P Assessment and Plan (1) Diverticulitis of intestine with perforation and abscess: Code(s): K57.80 - Diverticulitis of intestine, part unspecified, with perforation and abscess without bleeding Status: Acute Assessment and Plan: doing well, cont routine postop care, dc Morphine and switch to po analgesia, ADAT, OOB/IS, home soon Subjective Subjective Date/Time Seen: 04/07/23 10:07 Interval history: feels good this am, pain much improved, reports Morphine is making her hallucinate Review of Systems Review of Systems: All systems reviewed & are unremarkable except as noted in HPI and below Exam Const: General: cooperative, comfortable and no acute distress Resp: Auscultation: clear to auscultation bilaterally Cardio: Rate: regular rate Rhythm: regular rhythm GI: Inspection: normal to inspection, distended and incision GI Palp: Yes abdominal tenderness, Yes Soft to palpation, Yes Tenderness to palpation present (GI), No Guarding due to palpation present (GI) and No Rigid due to palpation Objective Data Vital Signs Vital Signs: Vital Signs - 24 hr 04/06/23 14:34 04/06/23 20:00 04/06/23 21:04 Temperature 36.4 C L 36.5 C Pulse Rate 99 87 Respiratory Rate 18 18 Blood Pressure 101/74 130/64 Pulse Oximetry 99 97 96 Oxygen Delivery Room Air 04/07/23 06:00 04/07/23 08:00 Temperature 36.3 C L Pulse Rate 88 88 Respiratory Rate 18 18 Blood Pressure 133/67 Pulse Oximetry 95 95 Oxygen Delivery Room Air Intake/Output Intake/Output: Intake & Output 04/04/23 04/05/23 04/06/23 04/07/23 23:59 23:59 23:59 23:59 Intake Total 3690 1910 4840 300 Output Total 200 200 Balance 3690 1710 4640 300 Meds/Results Medications: Active Medications Generic Name Dose Route Start Last Admin Trade Name Freq PRN Reason Stop Dose Admin Acetaminophen 650 mg 04/07/23 10:06 Acetaminophen 325 Mg Tablet PO Q6H PRN Mild Pain (1-3) or Fever Hydrocodone Bitart/Acetaminophen 1 tab 04/07/23 10:06 Hydrocodone/Acetaminophen (*Crx) 5-325 Mg Tablet PO Q4H PRN Pain Rated 4-6 Enoxaparin Sodium 40 mg 04/03/23 09:00 04/07/23 09:09 Enoxaparin 40 Mg/0.4 Ml Syringe SUB-Q 40 mg DAILY ZORAIDA Administration Famotidine 20 mg 04/02/23 21:00 04/07/23 09:58 Famotidine 20 Mg/2 Ml Vial IV PUSH 20 mg Q12HR ZORAIDA Administration Lactated Ringer's 1,000 mls @ 100 mls/hr 04/02/23 16:55 04/06/23 23:02 Lr - Lactated Ringers Iv IV CONT 100 mls/hr .Q10H ZORAIDA Administration Lorazepam 0.5 mg 04/03/23 16:33 04/06/23 20:34 Lorazepam Inj (*Crx) 2 Mg/Ml Vial IV PUSH 0.5 mg Q6H PRN Administration Anxiety Naloxone HCl 0.1 mg 04/02/23 16:54 Naloxone Hcl 0.4 Mg/Ml Vial IV PUSH Q2M PRN Opiate Reversal Ondansetron HCl 4 mg 04/02/23 10:48 04/06/23 14:30 Ondansetron Inj 4 Mg/2 Ml Vial IV PUSH 4 mg ONCE PRN Administration Nausea Ondansetron HCl 4 mg 04/02/23 16:54 04/03/23 11:36 Ondansetron Inj 4 Mg/2 Ml Vial IV PUSH 4 mg Q4H PRN Administration Nausea And Vomiting Radiology Results: ITS Impressions Abdomen/Pelvis CT 04/03/23 16:27 IMPRESSION: 1. Right lower quadrant incisional hernia containing a wall of nonobstructed ascending colon. 2. Small volume of ascites. 3. Small volume of free intraperitoneal gas and extensive distribution of extraperitoneal gas, consistent with recent surgery. 4. Gallbladder distention, which may be secondary to fasting.
[2023-04-07] MEDS: ACETAMINOPHEN 325 MG TABLET 650 MG PO ×2 (11:38→17:54)
[2023-04-07 14:00] VITALS: BP 140/57; PULSE 86; RESP 16; TEMP 36.5; O2SAT 97
[2023-04-07] MEDS: LORazepam INJ (*CRX) 2 MG/ML VIAL 0.5 MG IV PUSH (18:37)
[2023-04-07 20:00] VITALS: PULSE 86; RESP 16; O2SAT 97
--- NOTE | 2023-04-07 20:38 | PC.NURSE ---
Pt potassium 3.2 called exchange about possible potassium supplement for pt, pt appeite continues to be poor.
--- NOTE | 2023-04-07 20:48 | PC.NURSE ---
attempting to give pt 40 meq po KCL powder per MD Benavides
[2023-04-07] MEDS: POTASSIUM CHLORIDE 20 MEQ PACKET (FOR LIQUID) 40 MEQ PO (20:57)
[2023-04-07 21:38] VITALS: O2SAT 96
[2023-04-07 21:51] VITALS: BP 138/60; PULSE 84; RESP 16; TEMP 36; O2SAT 96
--- NOTE | 2023-04-07 23:34 | PC.NURSE ---
pt continued to have the same behaviors refusing medication and stating she wants to leave [facility], this nurse and recharger Zeenat, spoke with pt. Pt agreeable to stay until morning to speak with MD Benavides.
[2023-04-08] MEDS: ACETAMINOPHEN 325 MG TABLET 650 MG PO ×2 (00:01→05:31)
--- NOTE | 2023-04-08 05:05 | PC.NURSE ---
pt continues to refused available medication, only will take tylenol which is scheduled q6hrs, pt threatening to take medication in purse, this nurse and Charge Zeenat, took medication from pt purse and placed in med room with pt label. Calling Md Castillo for gas x order and increase tylenol to q4hrs if able.
--- NOTE | 2023-04-08 05:23 | PC.NURSE ---
second call to MD Benavides exchange awaiting call back.
[2023-04-08 07:30] VITALS: BP 142/63; PULSE 90; RESP 16; TEMP 36.1; O2SAT 97
[2023-04-08] MEDS: FAMOTIDINE 20 MG/2 ML VIAL IV PUSH (09:48)
[2023-04-08] MEDS: ENOXAPARIN 40 MG/0.4 ML SYRINGE SUB-Q (09:48)
--- NOTE | 2023-04-08 11:21 | PM.DS ---
DS: Admitting Diagnosis Discharge Date 04/08/2023 Admitting Diagnosis Complicated diverticulitis with stricture and abscess DS: Discharge Diagnosis Discharge Diagnosis (1) Diverticulitis of intestine with perforation and abscess: Code(s): K57.80 - Diverticulitis of intestine, part unspecified, with perforation and abscess without bleeding Status: Acute Assessment and Plan: status post robotic assisted sigmoid colectomy, continue routine postoperative care, home with p.o. analgesia, follow-up 1 week (2) JACOB (generalized anxiety disorder): Code(s): F41.1 - Generalized anxiety disorder Status: Acute Assessment and Plan: much improved, resume home medications DS: Summary Hospital Course Hospital Course: The patient is a 72-year-old female that had previously presented with complicated diverticulitis. The patient had perforation and abscess requiring percutaneous drainage. The patient had subsequent colonoscopy showing diverticular stricture. The patient presented to the hospital for robotic assisted sigmoid colectomy on 04/02, please see full operative report for details of that procedure. Of note, the patient had a undrained abscess found during the procedure. Postoperatively, the patient was transferred to the surgical floor. On postoperative day 1. , the patient was complaining of severe abdominal pain and was noted to have crepitus on her exam. Emergent CT scan was done that was largely unremarkable and consistent with postoperative changes. The patient was very anxious and IV Ativan was added. Over the next few days, the patient has incisional pain largely resolved and she was able to get up and move around without difficulty. She slowly began to have bowel function and her diet was advanced accordingly. She was able to be weaned off IV analgesia and her pain was well controlled with p.o. analgesia at discharge. She did work with therapy and was able to get up and out of bed without difficulty by discharge. At this time she will be discharged home with p.o. analgesia and follow-up in 1 week. Status at Discharge Functional status at discharge: independent ambulation Overall status at discharge: patient is progressing back to baseline Time Spent with Patient Time attestation: Total time spent providing and/or coordinating discharge services: Time spent: Less than 30 minutes Exam Const: General: cooperative, comfortable and no acute distress Resp: Auscultation: clear to auscultation bilaterally Cardio: Rate: regular rate Rhythm: regular rhythm GI: Inspection: normal to inspection and incision GI Palp: Yes abdominal tenderness, Yes Soft to palpation and Yes Tenderness to palpation present (GI) DS: Data Data Completed and Pending Completed studies during hospitalization: Pending at discharge 04/02/23 16:26 Surgical [PTH] Routine Discharge Plan Discharge Attending physician on discharge: Elsa Benavides Discharging Clinician: Elsa Benavides Anticipated Discharge Date/Time: 04/08/23 12:19 Patient Disposition: Home, Self-Care Activity: may shower and no straining Diet: heart healthy Wound Care Instructions: incision open to air Patient Instructions: Antibiotic Form, Colectomy (DC) Stand Alone Forms: General Discharge Information Follow-up/Referrals: Elsa Benavides MD [Physician] - 1 Week Discharge Medications: New hydrocodone-acetaminophen 7.5-325 mg tablet 1 tablet PO Q6H PRN (Reason: pain) Qty: 20 0RF Continued ciprofloxacin HCl [Cipro] 500 mg tablet 500 mg PO ONCE Qty: 1 0RF Rx Instructions: Take 1 tablet by mouth at 2:00PM THE DAY BEFORE SURGERY metronidazole 500 mg tablet See Rx Instructions .ROUTE .COMPLEX Qty: 3 0RF Rx Instructions: Take 1 tablet by mouth at 1:00pm, 2:00pm, and 11:00pm the day before surgery; levothyroxine [Euthyrox] 50 mcg tablet 50 mcg PO DAILY cholecalciferol (vitamin D3)
--- NOTE | 2023-04-08 12:03 | PC.NURSE ---
Pt discharged home today. Pt home medications was returned to pt. Pt has expressed concern over her sister coming up so visitors were to check in before going into room. Pt IV was removed and pt tolerated well. Pt was monitored for any changes in status while here.
== END 2023-04-08 12:00 | disposition home or self-care (01) | DRG 329 ==
LOC: ANH3MEDSUR 18:25
PROVIDERS: Admitting Provider Surgery; PCP Family Medicine; Visit Provider Surgery
PROC: 0DBN4ZZ Excision of Sigmoid Colon, Percutaneous Endoscopic Approach (ICD-10-PCS; principal; 2023-04-02 12:00)
DX: K57.20 Diverticulitis of large intestine with perforation and abscess without bleeding (principal); K65.1 Peritoneal abscess; F41.1 Generalized anxiety disorder; F32.A Depression, unspecified
CPT/HCPCS: 36415; 74177; 80048; 85025; 85027; 88307; 97110; 97161; 97165; 97530; 97535; A9270; C1729; C9290; J0690; J1100; J1170; J1650; J1836; J1885; J2060; J2250; J2270; J2405; J2543; J2704; J2710; J3010; J7030; J7120; Q9967

== ENCOUNTER → 2023-05-18 11:40 | Outpatient (CLI) | payer MEDICARE, BC, SELFPAY ==
--- NOTE | ~2023-05-18 | US_ITS ---
EXAMINATION: US soft tissue UE RT INDICATION: Right upper arm pain and bruising TECHNIQUE: Targeted ultrasound is performed in the area of clinical concern. COMPARISON: None available FINDINGS: There is a complex heterogeneous intramuscular mass of the right arm corresponding to the a paula of clinical concern. No definite internal vascularity is identified. The visualized vascular stru ctures are intact. IMPRESSION: 1. Complex intramuscular mass of the right arm likely representing an intramuscular hematoma. Reviewed, dictated and finalized at location B. IMPRESSION: 1. Complex intramuscular mass of the right arm likely representing an intramusc ular hematoma.
== END ==
PROVIDERS: PCP Family Medicine; Visit Provider Family Medicine
DX: M79.601 Pain in right arm (principal)
CPT/HCPCS: 76882

== ENCOUNTER → 2023-08-22 13:36 | Outpatient (CLI) | payer MEDICARE, BC, SELFPAY ==
--- NOTE | ~2023-08-22 | US_ITS ---
US soft tissue UE RT 08/22/2023 14:01 Indication: Right arm pain Procedure: High-resolution ultrasound of the right upper extremity Comparison: Ultrasound dated 05/18/2023 Findings: There is normal heterogeneous echotexture in the right upper extremity including the biceps area. No discrete mass identified. No abnormal fluid collections. Impression: 1: Normal limited soft tissue ultrasound of the right upper extremity in the region of the biceps. No discrete abnormal mass or fluid collection. Reviewed, dictated and finalized at location L. OMA PHARMACY TECHNICIAN Impression: 1: Normal limited soft tissue ultrasound of the right upper extremity in the re gion of the biceps. No discrete abnormal mass or fluid collection.
== END ==
PROVIDERS: PCP Obstetrics & Gynecology Gynecology; Visit Provider Physician Assistant
DX: M79.601 Pain in right arm (principal)
CPT/HCPCS: 76882

== ENCOUNTER → 2023-10-19 09:39 | Outpatient (CLI) | payer MEDICARE, BC, SELFPAY ==
--- NOTE | ~2023-10-19 | DEXA_ITS ---
Bone Density Report Name: ANGEL العلي Age: 73 Sex: Female Ethnicity: White Date of : 1950 Indication: osteopenia; parental hip fracture; height loss; prior fracture; postmenopausal Referring Provider: GENEVA MOSQUEDA Study: Bone densitometry was performed. Exam Date: October 19, 2023 Accession number: [id number] Bone Density: Region BMD T-score Z-score Classification AP Spine (L1, L4) 0.890 -1.3 1.0 Osteopenia Femoral Neck (Left) 0.592 -2.3 -0.3 Osteopenia Total Hip (Left) 0.882 -0.5 1.2 Normal Femoral Neck (Right) 0.653 -1.8 0.2 Osteopenia Total Hip (Right) 0.897 -0.4 1.3 Normal Total Hip Mean 0.890 -0.5 1.3 Normal World Health Organization criteria for BMD impression classify patients as: Normal (T-score at or above -1.0), Osteopenia (T-score between -1.0 and -2.5), or Osteoporosis (T-score at or below -2.5). 10-year Fracture Risk(1): Major Osteoporotic Fracture 34% Hip Fracture 16% Reported Risk Factors: [place] (), Neck BMD=0.592, BMI=27.6, previous fracture, parental fracture (1) FRAX(R) Version 3.08. Fracture probability calculated for an untreated patient. Fracture probability may be lower if the patient has received treatment. Previous Exams: Region Exam Age BMD T-score BMD Change BMD Change Date g/cm2 vs Baseline vs Previous AP Spine(L1, L4) 10/19/2023 73 0.890 -1.3 -0.050* 0.069* 06/23/2021 70 0.821 -2.0 -0.119* -0.064* 06/19/2019 68 0.885 -1.4 -0.055* -0.045* 05/16/2017 66 0.930 -1.0 -0.010 0.028* 03/02/2015 64 0.902 -1.2 -0.038* 0.061* 01/03/2013 62 0.841 -1.8 -0.099* -0.008 09/02/2010 60 0.849 -1.7 -0.091* -0.033* 07/24/2007 56 0.882 -1.4 -0.059* -0.059* 06/16/2005 54 0.940 -0.9 Total Hip(Left) 10/19/2023 73 0.882 -0.5 -0.126* -0.056* 06/23/2021 70 0.937 0.0 -0.071* 0.038* 06/19/2019 68 0.899 -0.3 -0.109* -0.001 05/16/2017 66 0.900 -0.3 -0.108* -0.071* 03/02/2015 64 0.971 0.2 -0.037* 0.100* 01/03/2013 62 0.870 -0.6 -0.138* 0.004 09/02/2010 60 0.867 -0.6 -0.141* 0.036* 07/24/2007 56 0.831 -0.9 -0.177* -0.177* 06/16/2005 54 1.008 0.5 Total Hip(Right) 10/19/2023 73 0.897 -0.4 -0.079* -0.026 06/23/2021 70 0.923 -0.2 -0.053* 0.032* 06/19/2019 68 0.891 -0.4 -0.085* -0.033* 05/16/2017 66 0.
== END ==
PROVIDERS: PCP Family Medicine; Visit Provider Obstetrics & Gynecology Gynecology
DX: Z78.0 Asymptomatic menopausal state (principal); M85.88 Other specified disorders of bone density and structure, other site; M85.852 Other specified disorders of bone density and structure, left thigh; M85.851 Other specified disorders of bone density and structure, right thigh
CPT/HCPCS: 77080

== ENCOUNTER 2024-02-18 12:42 | Outpatient (CLI) | payer MEDICARE, BC, SELFPAY ==
--- NOTE | ~2024-02-18 | MM_ITS ---
EXAMINATION: MM screening bertha BI w stephanie HISTORY: Screening mammogram TECHNIQUE: Craniocaudal and mediolateral oblique 3-D tomosynthesis images were obtained and synthetic 2-D images were generated. CAD analysis was submitted and interpreted. COMPARISON: 02/13/2023, 12/14/2021, 08/03/2020 BREAST PARENCHYMAL COMPOSITION:Not Dense. The breasts are almost entirely fatty FINDINGS: No suspicious mass, calcification, or architectural distortion are identified in either jordan ast to suggest malignancy. There has been no suspicious interval change. IMPRESSION: No mammographic evidence of malignancy. Recommend routine screening mammography in one year. BI-RADS Category 1: Negative Reviewed, dictated and finalized at location .
== END 2024-02-18 12:43 ==
LOC: MICIMG 12:43
PROVIDERS: PCP Family Medicine; Visit Provider Obstetrics & Gynecology Gynecology
DX: Z12.31 Encounter for screening mammogram for malignant neoplasm of breast (principal)
CPT/HCPCS: 77063; 77067

== ENCOUNTER 2024-08-15 11:22 | Outpatient (CLI) | payer MEDICARE, BC, SELFPAY ==
--- NOTE | ~2024-08-15 | XR_ITS ---
EXAMINATION: XR chest 2V 08/15/2024 12:11 INDICATION: Cough PROCEDURE: 2 view chest COMPARISON: 01/13/2021 FINDINGS: The lungs are clear. The cardiomediastinal silhouette is within normal limits. There are no pleural effusions. There is no pneumothorax suspected. IMPRESSION: 1: NO ACUTE CARDIOPULMONARY DISEASE. Reviewed, dictated and finalized at location B. ET MACHINE OPERATOR
== END 2024-08-15 11:23 | disposition home or self-care (01) ==
PROVIDERS: PCP Family Medicine; Visit Provider Family Medicine
DX: R05.9 Cough, unspecified (principal)
CPT/HCPCS: 71046

== ENCOUNTER 2024-11-14 08:57 | Outpatient (CLI) | payer MEDICARE, BC, SELFPAY ==
--- NOTE | ~2024-11-14 | CT_ITS ---
Non-contrast CT scan of the Abdomen and Pelvis Clinical indication: Incisional hernia Technique: 2.5 mm axial scans were obtained through the abdomen and pelvis without intravenous or or al contrast. Dose reduction technique was used on this scan by utilizing automated exposure control a nd iterative reconstruction technique. The dose-length product (DLP) was 619.65 mGy-cm. Findings: Images through the lung bases reveal no abnormalities. 5 mm nonobstructing right renal stone present. No left renal or left ureteral stone. No hydronephrosi s on either side. The liver, spleen, pancreas, gallbladder, and adrenals appear normal. There is no aortic aneurysm. Rectosigmoid anastomosis present. There is right-sided incisional versus spigelian hernia containing the proximal portion of the transverse colon. No bowel obstruction or bowel wall thickening. Images through the pelvis were performed. There is no evidence of ascites or lymphadenopathy. Urinary bladder unremarkable. No pelvic mass seen. No ascites. Impression: Large right-sided incisional versus spigelian hernia containing the proximal half of the sigmoid colo n. No obstruction or bowel wall thickening. 5 mm nonobstructing right renal stone. Reviewed, dictated and finalized at [facility]. Impression: Large right-sided incisional versus spigelian hernia containing the proximal mathias lf of the sigmoid colon. No obstruction or bowel wall thickening. 5 mm nonobstructing right renal stone.
== END 2024-11-14 08:58 | disposition home or self-care (01) ==
LOC: GOSHIMG 08:58
PROVIDERS: PCP Family Medicine; Visit Provider Surgery
DX: K43.2 Incisional hernia without obstruction or gangrene (principal); N20.0 Calculus of kidney
CPT/HCPCS: 74176

== ENCOUNTER 2024-12-24 10:09 | Outpatient (CLI) | payer MEDICARE, BC, SELFPAY ==
--- NOTE | 2024-12-24 10:16 | ECG_ITS ---
Test Date: 2024-12-24 10:52:33 Measurements Intervals [place] Rate: 77 P: -3 CA: 127 QRS: 12 QRSD: 81 T: 40 QT: 396 QTc: 450 Interpretive Statements SINUS RHYTHM LOW QRS VOLTAGE IN PRECORDIAL LEADS PATTERN CONSISTENT WITH PULMONARY DISEASE BASELINE ARTIFACT- I, II, III, AVR, AVL,, AVF, V3-V5 BORDERLINE ECG No previous ECG available for comparison Electronically Signed On 12-24-2024 10:59:13 CDT by Ji Diego D.O.
--- OUTSIDE RECORDS SUMMARY | 2024-12-24 11:21 | XMS_ITS | Clinical Summary ---
Author Organization [facility] dministration Address [address] [place] [address] Care Team Providers Care Metal Molder Name Role Phone Unavailable Primary Care Provider Unavailabl e Medications ergocalciferol (VITAMIN D2) 50,000 unit capsule Take 1 capsule by mouth three times a month. 9 Capsule 03/03/2022 4:09 PM CDT 2 Active cyclobenzaprin e (FLEXERIL) 10 mg tablet TAKE ONE TABLET BY MOUTH THREE TIMES A DAY NEEDED FOR MUSCLE SPASM 20 Tablet 2 04/19/2022 7:20 PM CDT 2 Active ergocalciferol (Vitamin D2) 50,000 unit capsule TAKE 1 CAPSULE BY MOUTH 3 TIMES A MONTH. 9 Capsule 4 06/08/2022 3:57 PM CDT 2 Active donepeziL (ARICEPT) 5 mg tablet Take 1 Tablet (5 mg) by mouth daily at bedtime. 90 Tablet 2 10/28/2022 4:46 PM RETAIL SERVICE LEAD MERCHANDISER 2 Active levothyroxine 50 mcg tablet Take 1 Tablet (50 mcg) by mouth daily. 90 Tablet 2 08/22/2023 3:02 PM RETAIL SERVICE LEAD MERCHANDISER 3 Active escitalopram oxalate (LEXAPRO) 10 mg tablet Take 1 Tablet (10 mg) by mouth daily. 90 Tablet 1 11/09/2022 4:35 PM CDT 3 Active escitalopram oxalate (LEXAPRO) 10 mg tablet Take 1 Tablet (10 mg) by mouth daily. 90 Tablet 1 3 Active ciprofloxacin HCl (CIPRO) 500 mg tablet Take 1 tablet by mouth at 2:00 pm the day before surgery. 1 Tablet 03/20/2023 3:53 PM CDT 3 Active metroNIDAZOLE (FLAGYL) 500 mg tablet Take 1 tablet by mouth at 1:00 pm, 2:00 pm and at 11:00 pm the day before surgery. 3 Tablet 03/20/2023 3:53 PM CDT 3 Active HYDROcodone-ac etaminophen (NORCO) 7.5-325 mg Tablet Take 1 Tablet by mouth every 6 hours as needed FOR PAIN. 20 Tablet 04/08/2023 12:22 PM CDT 3 Active neomycin-polym yxin-dexAMETHa sone (MAXITROL) 3.5mg/mL-10,00 0 unit/mL-0.1 % suspension Administer 1 Drop in both eyes 3 times daily. Shake well. 5 mL 08/28/2023 12:39 PM RETAIL SERVICE LEAD MERCHANDISER 4 Active valACYclovir (VALTREX) 500 mg tablet Take 1 Tablet (500 mg) by mouth daily. 90 Tablet 4 12/07/2023 4:04 PM CDT 4 Active neomycin-polym yxin-dexAMETHa sone (MAXITROL) 3.5mg/mL-10,00 0 unit/mL-0.1 % suspension Instill 1 drop into both eyes twice a day. Shake well. 5 mL 12/07/2023 4:04 PM CDT 4 Active cyclobenzaprin e (FLEXERIL) 10 mg tablet Take 1 Tablet (10 mg) by mouth 3 times daily as needed for leg cramps. 90 Tablet 01/03/2024 5:06 PM CDT 4 Active escitalopram oxalate (LEXAPRO) 20 mg tablet Take 1 Tablet (20 mg) by mouth daily. 90 Tablet 1 4 Active levothyroxine 75 mcg tablet TAKE 1 TABLET (75 MCG) BY MOUTH DAILY. 90 Tablet 3 10/10/2024 4:23 PM RETAIL SERVICE LEAD MERCHANDISER 4 Active donepeziL (ARICEPT) 5 mg tablet Take 1 Tablet (5 mg) by mouth daily at bedtime. 90 Tablet 2 12/06/2024 12:36 PM CDT 4 Active escitalopram oxalate (LEXAPRO) 20 mg tablet Take 1 Tablet (20 mg) by mouth daily. 90 Tablet 1 4 Active neomycin-polym yxin-dexAMETHa sone (MAXITROL) 3.5mg/mL-10,00 0 unit/mL-0.1 % suspension Instill 1 drop into both eyes twice a day shake well 5 mL 06/12/2024 3:20 PM CDT 4 Active busPIRone (BUSPAR) 5 mg tablet Take 1 Tablet (5 mg) by mouth 2 times daily. 60 Tablet 5 12/06/2024 12:36 PM CDT 4 Active escitalopram oxalate (LEXAPRO) 20 mg tablet Take 1 Tablet (20 mg) by mouth daily. 90 Tablet 1 07/22/2024 4:44 PM RETAIL SERVICE LEAD MERCHANDISER 4 Active alendronate (FOSAMAX) 70 mg tablet Take 1 Tablet (70 mg) by mouth every 7 days. Take with 8 ounces of water. 12 Tablet 09/23/2024 4:57 PM RETAIL SERVICE LEAD MERCHANDISER 4 Active escitalopram oxalate (LEXAPRO) 20 mg tablet Take 1 Tablet (20 mg) by mouth daily. 90 Tablet 1 12/05/2024 4:31 PM CDT 4 Active fluticasone propionate (FLONASE) 50 mcg/spray [place], Suspension nasal inhaler Administer 1 [place] in each nostril daily. 16 Gram 08/13/2024 4:01 PM RETAIL SERVICE LEAD MERCHANDISER 4 Active codeine-guaiFE Nesin (ROBITUSSIN-AC ) 10-100 mg/5 mL Liquid Take 5 mL by mouth daily. 120 mL 08/15/2024 12:07 PM RETAIL SERVICE LEAD MERCHANDISER 4 Active methylPREDNISo lone (MEDROL DOSPACK) 4 mg Tablets, Dose Pack TAKE DIRECTED ON PACKAGE. 21 Each 08/15/2024 4:50 PM RETAIL SERVICE LEAD MERCHANDISER 4 Active benzonatate (TESSALON) 100 mg capsule Take 2 Capsules (200 mg) by mouth 3 times daily as needed for cough. 60 Capsule 09/04/2024 12:21 PM RETAIL SERVICE LEAD MERCHANDISER 5 Active clotrimazole-b etamethasone (LOTRISONE) 1-0.05 % Cream APPLY TO AFFECTED AREA TWICE DAILY FOR SEVEN DAYS 15 Gram 5 Active ergocalciferol (VITAMIN D2) 50,000 unit capsule Take 1 Capsule (50,000 Units) by mouth every 7 days. 4 Capsule 10/10/2024 4:23 PM RETAIL SERVICE LEAD MERCHANDISER 5 Active cyclobenzaprin e (FLEXERIL) 10 mg tablet Take 1 Tablet (10 mg) by mouth 3 times daily as needed for leg cramps. 90 Tablet 11/04/2024 4:18 PM CDT 5 Active nystatin-triam cinolone (MYCOLOG-II) 100,000-0.1 unit/g-% Cream Apply twice daily to rash as directed 60 Gram 11/04/2024 4:18 PM CDT 5 Active levothyroxine 75 mcg tablet Take 1 tablet by mouth in the morning 90 Tablet 4 11/04/2024 4:18 PM CDT 5 Active buPROPion HCL (WELLBUTRIN XL) 150 mg Extended Release 24 hour tablet Take 1 Tablet (150 mg) by mouth daily in the morning. 90 Tablet 1 11/21/2024 3:26 PM CDT 5 Active buPROPion HCL (WELLBUTRIN XL) 150 mg Extended Release 24 hour tablet Take 1 Tablet (150 mg) by mouth daily. 90 Tablet 1 12/15/2024 3:12 PM CDT 5 Active atorvastatin (LIPITOR) 10 mg tablet Take 1 Tablet (10 mg) by mouth daily. 90 Tablet 2 12/15/2024 3:12 PM CDT 5 Active atorvastatin (LIPITOR) 10 mg tablet Take 1 Tablet (10 mg) by mouth daily. 90 Tablet 2 11/08/2024 4:24 PM CDT 4 12/09/19 25 Discontinu ed(Reorder ) Social History Tobacco Use Types Packs/Day Years Used Date Smoking Tobacco: Never Assessed Comments Unknown Sex and Gender Information Value Date Recorded Sex Assigned at Not on file Legal Sex Female 10:46 PM CDT Gender Identity Not on file Sexual Orientation Not on file Plan of Treatment Health Maintenance Due Date Last Done Comments DTAP/TDAP/TD VACCINES (1 - Tdap) 1969 BREAST CANCER SCREENING 1990 COLORECTAL SCREENING 1995 Colorectal Cancer Screening 1995 FIT-DNA Q 3 years 1995 FIT/FOBT Q 1 year 1995 Flex Sig/CT Colonography Q 5 years 1995 PNEUMOCOCCAL VACCINE 50+ YEARS (1 of 1 - PCV) 07/29/20 00 ZOSTER VACCINE (1 of 2) 2000 OSTEOPOROSIS SCREENING 2015 INFLUENZA VACCINE (#1) 2024 RSV VACCINE (60+ or ) (1 - 1-dose 75+ series) 2025 Insurance RX [employer] (INTERNAL) [facility] RX [facility] Medicare Part D
== END 2024-12-24 10:10 | disposition home or self-care (01) ==
LOC: ANHSURGERY 10:13
PROVIDERS: PCP Family Medicine; Visit Provider Surgery
DX: Z01.818 Encounter for other preprocedural examination (principal); K43.2 Incisional hernia without obstruction or gangrene; E78.2 Mixed hyperlipidemia; R94.31 Abnormal electrocardiogram [ECG] [EKG]
CPT/HCPCS: 36415; 86850; 86900; 86901; 93005

== ENCOUNTER 2025-01-01 14:53 | Inpatient (IN) | payer MEDICARE, BC, SELFPAY ==
[2024-12-19 09:41] VITALS: BMI 28.2
--- NOTE | 2024-12-19 10:02 | PC.NURSE ---
Report to the Outpatient Waiting Room, entrance under the green pavilion located off [facility], at time ___6:00AM____ on date ___01/01/25____. Planned Procedure Time: ___7:30AM . Time changes happen often and if your time is changed the preop area will call you the afternoon before. - You and your visitor will be asked to self-screen and do not enter if you have any COVID symptoms. Please call surgeon if you need to reschedule. - A mask is optional within the hospital at this time. Patients may have clear liquids (water, carbonated beverages, clear teas, apple juice) until 3 hours prior to surgery (4:30AM) with a maximum of 20 ounces. - No food from midnight until time of surgery and no smoking, or chewing tobacco (or any form of nicotine). No chewing gum, candy or mints. Take only the following medications with a SIP of water on the morning of surgery: ____BUPROPION, BUSPIRONE, ESCITALOPRAM, LEVOTHYROXINE DO NOT STOP ANY OF YOUR OTHER PRESCRIPTION MEDICATIONS PRIOR TO SURGERY EXCEPT THE FOLLOWING Hold all vitamins and supplements for 3 days per anesthesiologist.- LAST DOSE 12/28/24 Please no make-up, nail romansh, hairspray, perfume, deodorant, or body powder the day of surgery. No jewelry (including any body piercings) or valuables the day of surgery, leave them at home. Please take a shower or bath the night before, or the morning of, surgery with an antibacterial soap. Wear comfortable, loose fitting clothing. - Jewelry must be removed prior to entering the operating room. Rings and piercings that are not removed may be cut off. - The hospital will not accept responsibility for valuables. - Please leave all valuables, including medications, at home the day of surgery. If you are going home after surgery, a licensed local company tanker driver must drive you home. - NO public transportation without another adult if you receive anesthesia. - We recommend that an adult stay with you for 24 hours following discharge. - We also recommend that you do not drive, make important decision, drink alcoholic beverages, or take any drugs that were not prescribed by your health care provider for at least 24 hours after your discharge time. Follow any additional instructions given to you from your surgeon. Telephone instructions given to ____PATIENT and asked if any additional questions and then verbalized understanding. Patient advised to call surgeon office or pre surgery nurse liaison [phone] if any additional questions.
[2025-01-01] VITALS (37 sets, daily range): BP systolic 93–152; BP diastolic 46–108; PULSE 71–96; RESP 11–22; TEMP 36.5–37.1; O2SAT 85–98; BMI 27.3; BMI 27.1
--- NOTE | ~2025-01-01 | CT_ITS ---
EXAMINATION: CTA chest PE protocol DATE: 01/01/2025 19:43 CDT INDICATION: Postoperative hypoxia TECHNIQUE: Computed tomographic angiography (CTA) of the chest was performed with 100 mL Omnipaque-35 0 intravenous contrast. The dose-length product was 472.49 mGy-cm. Maximum intensity projection 3D-re constructions of the aorta and other arteries were constructed by the technologist on a separate work station. COMPARISON: None. FINDINGS/OBSERVATIONS: PULMONARY ARTERIES: No filling defect is identified within the main or proximal pulmonary artery. The main pulmonary artery is not enlarged. THORACIC AORTA: No aneurysmal dilatation or dissection is present. The great vessels are intact LUNGS: Patchy groundglass opacification detected bilaterally with interstitial thickening, findings s uggestive of pulmonary edema, with multifocal pneumonia less likely. MEDIASTINUM: No morphologically suspicious or pathologically enlarged lymph nodes are identified with in the mediastinum or bilateral axilla. BONES OF THE CHEST: No acute fracture. No significant degenerative disease. No lytic or blastic lesions. HEART: The heart is enlarged, without pericardial effusion. IMPRESSION: No pulmonary embolus. No thoracic aortic dissection. Findings detected bilaterally suggesting pulmonary edema, with multifocal pneumonia less likely. Reviewed, dictated and finalized at location A. IMPRESSION: No pulmonary embolus. No thoracic aortic dissection. Findings detected bilaterally suggesting pulmonary edema, with multifocal pneum onia less likely.
--- NOTE | ~2025-01-01 | XR_ITS ---
XR chest 2V 01/04/2025 09:43 Indication: Pneumonia Procedure: PA and lateral views the chest Comparison: Comparison to multiple prior studies sequentially, with oldest reviewed study dated 01/13. Findings: Heart size normal. Bibasilar airspace disease. Possible small effusion. No pneumothorax. Impression: 1: Bibasilar airspace disease with improvement compared with 01/02/2025. Differential diagnosis inclu reggie residual edema, pneumonia or atelectasis. Reviewed, dictated and finalized at location A. Impression: 1: Bibasilar airspace disease with improvement compared with 01/02/2025. Differ ential diagnosis includes residual edema, pneumonia or atelectasis.
--- NOTE | ~2025-01-01 | CT_ITS ---
History: Postoperative hypoxia and altered mental status PROCEDURE: CT head without contrast. COMPARISON: None TECHNIQUE: Axial imaging of the head performed from the skull base to the vertex without IV contrast. Sagittal a nd coronal reformations obtained. DLP: 605 mGy-cm FINDINGS: The ventricles are enlarged. The dilatation of the ventricles is proportional to the degree of sulcal prominence, not uncommon in the senescent brain. Decreased attenuation is identified within the periventricular white matter, likely secondary to micr ovascular ischemic disease, in a patient of this age. There is no mass, mass effect or midline shift. There is no abnormal extra-axial fluid collection or intracranial hemorrhage. Visualized paranasal sinuses are clear. The mastoid air cells are well aerated. No acute displaced fractures within the overlying cranium. Impression: No acute intracranial hemorrhage or suspicious mass effect. Reviewed, dictated and finalized at location A. Impression: No acute intracranial hemorrhage or suspicious mass effect.
--- NOTE | ~2025-01-01 | XR_ITS ---
XR chest 1V portable 01/02/2025 07:52 Indication: Hypoxia Procedure: AP portable chest Comparison: Comparison to multiple prior studies sequentially, with oldest reviewed study dated 07/28. Findings: Patchy bilateral airspace disease, consistent with pneumonia. No pleural effusion or pneumo thorax. No acute osseous abnormality. Impression: 1: Patchy bilateral airspace disease, compatible with pneumonia. Reviewed, dictated and finalized at location A. Impression: 1: Patchy bilateral airspace disease, compatible with pneumonia.
--- NOTE | ~2025-01-01 | XR_ITS ---
XR chest 1V portable Ordering provider: Cristo Choi History: 74 years Female with . LOW SATS AFTER HERNIA REPAIR SURGERY . Comparison: August 15, 2024 FINDINGS: MEDIASTINUM: The cardiac silhouette is not enlarged. Congestive michael. LUNGS: No effusions or pneumothorax. Opacification in the left lung base suggestive of atelectasis versus pneumonia. Bilateral interstitia l thickening suggestive of pneumonitis. OTHER: No free air under the diaphragm. Degenerative the spine. IMPRESSION: Left basilar atelectasis versus pneumonia. Bilateral interstitial thickening suggestive of pneumonitis. Pulmonary edema is less likely. Reviewed, dictated and finalized at location A.
--- OUTSIDE RECORDS SUMMARY | 2025-01-01 01:09 | XMS_ITS | Clinical Summary ---
Author Organization [facility] dministration Address [address] [place] [address] Care Team Providers Care Distillery Laborer Name Role Phone Unavailable Primary Care Provider [...] bedtime. 90 Tablet 2 10/28/2022 4:46 PM SYSTEM ARCHIVE ANALYST 2 Active levothyroxine 50 mcg tablet Take 1 Tablet (50 mcg) by mouth daily. 90 Tablet 2 08/22/2023 3:02 PM SYSTEM ARCHIVE ANALYST 3 Active escitalopram oxalate (LEXAPRO) 10 mg [...] Shake well. 5 mL 08/28/2023 12:39 PM SYSTEM ARCHIVE ANALYST 4 Active valACYclovir (VALTREX) 500 mg tablet [...] DAILY. 90 Tablet 3 10/10/2024 4:23 PM SYSTEM ARCHIVE ANALYST 4 Active donepeziL (ARICEPT) 5 mg tablet [...] daily. 90 Tablet 1 07/22/2024 4:44 PM SYSTEM ARCHIVE ANALYST 4 Active alendronate (FOSAMAX) 70 mg tablet Take 1 Tablet (70 mg) by mouth every 7 days. Take with 8 ounces of water. 12 Tablet 09/23/2024 4:57 PM SYSTEM ARCHIVE ANALYST 4 Active escitalopram oxalate (LEXAPRO) 20 mg tablet Take 1 Tablet (20 mg) by mouth daily. 90 Tablet 1 12/05/2024 4:31 PM CDT 4 Active fluticasone propionate (FLONASE) 50 mcg/spray [place], Suspension nasal inhaler Administer 1 [place] in each nostril daily. 16 Gram 08/13/2024 4:01 PM SYSTEM ARCHIVE ANALYST 4 Active codeine-guaiFE Nesin (ROBITUSSIN-AC ) 10-100 mg/5 mL Liquid Take 5 mL by mouth daily. 120 mL 08/15/2024 12:07 PM SYSTEM ARCHIVE ANALYST 4 Active methylPREDNISo lone (MEDROL DOSPACK) 4 mg Tablets, Dose Pack TAKE DIRECTED ON PACKAGE. 21 Each 08/15/2024 4:50 PM SYSTEM ARCHIVE ANALYST 4 Active benzonatate (TESSALON) 100 mg capsule Take 2 Capsules (200 mg) by mouth 3 times daily as needed for cough. 60 Capsule 09/04/2024 12:21 PM SYSTEM ARCHIVE ANALYST 5 Active clotrimazole-b etamethasone (LOTRISONE) 1-0.05 % Cream APPLY TO AFFECTED AREA TWICE DAILY FOR SEVEN DAYS 15 Gram 5 Active ergocalciferol (VITAMIN D2) 50,000 unit capsule Take 1 Capsule (50,000 Units) by mouth every 7 days. 4 Capsule 10/10/2024 4:23 PM SYSTEM ARCHIVE ANALYST 5 Active cyclobenzaprin e (FLEXERIL) 10 mg [...]
[2025-01-01] MEDS: KETOROLAC 15 MG/ML VIAL (*BKC) IV PUSH ×2 (07:14→13:15)
[2025-01-01] MEDS: ACETAMINOPHEN 500 MG TABLET 1000 MG PO (07:14)
[2025-01-01] MEDS: LACTATED RINGERS 1,000 ML 30 ML IV CONT ×2 (07:14→09:26)
--- NOTE | 2025-01-01 07:18 | PM.IMHP ---
H&P: HPI History of Present Illness Date/Time: 01/01/25 07:18 Chief Complaint: Right lower quadrant incisional hernia Narrative: Cuca returns to the office at the request of Dr. Stevens for evaluation of a incisional hernia. Patient reports RLQ bulge that was noticed over last few months. Denies any pain. Denies any issues with bowel habits. Patient has past surgical history of robotic sigmoid colectomy in 2022. Patient reports that the area seems to have been getting larger. Workup, including imaging, significant for a incarcerated right lower quadrant incisional hernia with sigmoid colon. Review of Systems Review of Systems: All systems reviewed & are unremarkable except as noted in HPI and below PMFSH Past Medical History Medical History Depression Mild cognitive impairment Status post fall Acute left-sided low back pain with sciatica ETD (eustachian tube dysfunction) Surgical History Surgical History Hx of colectomy Robotic assisted sigmoid colectomy extensive lysis of adhesions of approx 2 hours on 04/[address] Benavides. Family History Family History Father Carcinoma of colon Other Family history of malignant neoplasm Social History Social History Social History: Single Smoking status: Never smoker Second hand tobacco smoke exposure: No Alcohol intake: current Drinks per week: 1 Alcohol use details: 2 DRINKS PER MONTH Substance use: never Substance use type: does not use Do You Feel Safe in your Home?: Yes Lack of Transportation: No Lack of Food: Never True Current Housing: I Have Housing Concerned About Future Housing: No Difficulty Paying Gas/Electric Bills: No Difficulty Paying for Meds: No Currently Unemployed: No Education: High School Diploma/GED Difficulty w/ Childcare or Family Care: No Living arrangements: alone Occupation/Education: retired Gender identity (if verbalized by the patient): Female Sexual Orientation (if Verbalized by the Patient): Straight or Heterosexual Spiritual care concerns: No Meds Home Medications and Allergies Home Medications Medication Instructions Recorded Confirmed Type [id number] tablet 1 tablet PO DAILY 03/26/23 12/19/24 History multivitamin 1 tablet PO DAILY 03/26/23 12/19/24 History multivitamin with minerals 1 tablet PO DAILY 03/26/23 12/19/24 History (Hair,Skin and Nails tablet) levothyroxine 75 mcg capsule 75 mcg PO DAILY #30 caps 11/12/23 01/01/25 Rx donepezil 5 mg tablet (Aricept) 5 mg PO QHS #90 tabs 03/11/24 12/19/24 Rx coenzyme Q10 100 mg capsule 100 mg PO DAILY #30 caps 05/06/24 12/19/24 Rx (CoQ-10) melatonin 3 mg capsule 3 mg PO QHS #30 caps 05/06/24 12/19/24 Rx buspirone 5 mg tablet 5 mg PO BID #60 tabs 06/10/24 01/01/25 Rx escitalopram oxalate 20 mg tablet 20 mg PO DAILY #90 tabs 08/13/24 01/01/25 Rx cyclobenzaprine 10 mg tablet 10 mg PO TID PRN Leg cramps #90 11/01/24 12/19/24 Rx tabs bupropion HCl 150 mg 24 hr tablet, 150 mg PO DAILY #90 tabs 11/19/24 01/01/25 Rx extended release (Wellbutrin XL) atorvastatin 10 mg tablet 10 mg PO DAILY #90 tabs 12/08/24 12/19/24 Rx cholecalciferol (vitamin D3) 50 2,000 unit PO DAILY 12/19/24 12/19/24 History mcg (2,000 unit) capsule lactobacillus combination no.4 3 3,000 mmu cells PO DAILY 12/19/24 12/19/24 History billion cell capsule (Probiotic) Allergies Allergy/AdvReac Type Severity Reaction Status Date / Time morphine AdvReac Severe Confusion Verified 01/01/25 07:07 Vital Signs Vital Signs - 24 hr 01/01/25 07:09 Temperature 36.6 C Pulse Rate 73 Blood Pressure 101/72 Pulse Oximetry 97 Oxygen Delivery Room Air Exam Const: General: cooperative, comfortable and no acute distress Resp: Auscultation: clear to auscultation bilaterally Cardio: Rate: regular rate Rhythm: regular rhythm GI: GI Palp: No abdominal tenderness, Yes Soft to palpation and Yes Hernia present Other: Right lower quadrant hernia Assessment and Plan Assessment and plan (1) Incisional hernia: Qualifiers: Obstruction and gangrene presence: without obstruction or gangrene Qualified Code(s): K43.2 - Incisional hernia without obstruction or gangrene Code(s): K43.2 - Incisional hernia without obstruction or gangrene Status: Acute Assessment and Plan: will set up for robotic assisted repair with mesh
--- NOTE | 2025-01-01 07:21 | WPDHPUPDATE1 ---
History and Physical Update Update Date/Time: 01/01/25 07:21 History and Physical has been reviewed, including an updated exam of the patient. There are NO changes in the patient's condition. Risks, benefits, and alternatives have been discussed and questions answered. Patient agrees to proceed with procedure.
--- NOTE | 2025-01-01 07:22 | P.PNAN_ITS ---
Anes - Initial Pre Proc Eval Procedure: Operation Date: 01/01/25 07:30 Proposed Procedures p Robotic Assisted Incisional Hernia Repair with Mesh - Elsa Benavides MD Date/Time: 01/01/25 07:22 Surgeon: Elsa Benavides MD Pre Op Diagnosis: incisional hernia Patient Data Age: 74 Gender: F Height: 1.57 m Weight: 68 kg Last Vital Signs Temp 97.8 F 01/01/25 07:09 Pulse 73 01/01/25 07:09 BP 101/72 01/01/25 07:09 Pulse Ox 97 01/01/25 07:09 O2 Del Method Room Air 01/01/25 07:09 Allergies Allergy/AdvReac Type Severity Reaction Status Date / Time morphine AdvReac Severe Confusion Verified 01/01/25 07:07 Home Medications Medication Instructions Recorded Confirmed Type [id number] tablet 1 tablet PO DAILY 03/26/23 12/19/24 History multivitamin 1 tablet PO DAILY 03/26/23 12/19/24 History multivitamin with minerals 1 tablet PO DAILY 03/26/23 12/19/24 History (Hair,Skin and Nails tablet) levothyroxine 75 mcg capsule 75 mcg PO DAILY #30 caps 11/12/23 01/01/25 Rx donepezil 5 mg tablet (Aricept) 5 mg PO QHS #90 tabs 03/11/24 12/19/24 Rx coenzyme Q10 100 mg capsule 100 mg PO DAILY #30 caps 05/06/24 12/19/24 Rx (CoQ-10) melatonin 3 mg capsule 3 mg PO QHS #30 caps 05/06/24 12/19/24 Rx buspirone 5 mg tablet 5 mg PO BID #60 tabs 06/10/24 01/01/25 Rx escitalopram oxalate 20 mg tablet 20 mg PO DAILY #90 tabs 08/13/24 01/01/25 Rx cyclobenzaprine 10 mg tablet 10 mg PO TID PRN Leg cramps #90 11/01/24 12/19/24 Rx tabs bupropion HCl 150 mg 24 hr tablet, 150 mg PO DAILY #90 tabs 11/19/24 01/01/25 Rx extended release (Wellbutrin XL) atorvastatin 10 mg tablet 10 mg PO DAILY #90 tabs 12/08/24 12/19/24 Rx cholecalciferol (vitamin D3) 50 2,000 unit PO DAILY 12/19/24 12/19/24 History mcg (2,000 unit) capsule lactobacillus combination no.4 3 3,000 mmu cells PO DAILY 12/19/24 12/19/24 History billion cell capsule (Probiotic) Patient hx anesthesia problems: none Family hx anesthesia problems: none Results Review: All pre-operative results and documents have been reviewed as part of the pre- operative evaluation. [facility] Past Medical History Medical History Depression Mild cognitive impairment Status post fall Acute left-sided low back pain with sciatica ETD (eustachian tube dysfunction) Surgical History Surgical History Hx of colectomy Robotic assisted sigmoid colectomy extensive lysis of adhesions of approx 2 hours on 04/[address] Benavides. Family History Family History Father Carcinoma of colon Other Family history of malignant neoplasm Social History Social History Social History: Single Smoking status: Never smoker Second hand tobacco smoke exposure: No Alcohol intake: current Drinks per week: 1 Alcohol use details: 2 DRINKS PER MONTH Substance use: never Substance use type: does not use Do You Feel Safe in your Home?: Yes Lack of Transportation: No Lack of Food: Never True Current Housing: I Have Housing Concerned About Future Housing: No Difficulty Paying Gas/Electric Bills: No Difficulty Paying for Meds: No Currently Unemployed: No Education: High School Diploma/GED Difficulty w/ Childcare or Family Care: No Living arrangements: alone Occupation/Education: retired Gender identity (if verbalized by the patient): Female Sexual Orientation (if Verbalized by the Patient): Straight or Heterosexual Spiritual care concerns: No Anes - Eval Final PreProcedure Day of Procedure 01/01/25 07:22 Patient weight: normal Lungs: normal air movement Airway: Mallampati scale class II and special considerations (Upper incisor capped. ) Neurological: alert and oriented Last oral intake: >/= 8 hours ASA classification: III Emergent: no Anesthetic plan: proceed Anesthesia type and monitoring: general ETT and standard monitoring Results Review: All pre-operative results and documents have been reviewed as part of the pre- operative evaluation. Hyperlipidemia, hypothyroidism. Informed Consent: The patient's anesthetic plan and its attendant risks and benefits were discussed with the patient/family/POA. Questions were solicited and answers provided to the satisfaction of the patient/family/POA.
[2025-01-01] MEDS: ceFAZolin 2 GM/D5W 50 ML 2 GM/50 ML BAG IVPB (07:33)
[2025-01-01] MEDS: BUPIVACAINE/EPINEPHRINE 0.5% 50 ML VIAL 30 ML INFILTRATE (08:00)
--- NOTE | 2025-01-01 09:36 | W.PM.PROC2 ---
Procedure Note - Detailed Date of Procedure 01/01/25 Pre-op Diagnosis incarcerated right lower quadrant incisional hernia measuring 5.5 cm Post-op Diagnosis Same Procedure Performed robotic assisted repair right lower quadrant incisional hernia measuring 5.5 cm, extensive lysis of adhesions and reduction of sigmoid colon Surgeon Elsa Benavides MD Anesthesia General and Local Indications 74-year-old female status post colectomy now presenting with an incisional hernia in the right lower quadrant. CT scan prior to surgery was significant for incarcerated right lower quadrant incisional hernia with noted sigmoid colon. Findings 5.5 cm incarcerated right lower quadrant incisional hernia with noted sigmoid colon Description of Procedure The patient was taken the operating room placed in the supine position. After adequate induction of general anesthesia, the patient was prepped and draped in the normal sterile fashion. A time-out was then done to verify the patient's identity, as well as the procedure being performed. A 8 mm incision was made in the left upper quadrant and a Veress needle was placed into the peritoneal cavity. CO2 gas was then insufflated. After adequate pneumoperitoneum was achieved, the Veress needle was removed. A 8 mm Optiview trocar was then placed into the abdominal cavity under direct visualization. I then placed a laparoscopic through this trocar site and under direct visualization placed 2 further 8 mm port, left mid abdomen and left lower abdomen. The DA Nataly was then docked to the trocar sites. At this time, I was able to identify this hernia in the right lower quadrant. There was noted to be incarcerated sigmoid colon within the hernia. There was also a lot of adhesions in the area from her previous colectomy. An extensive lysis of adhesions was done with the scissors and Bovie cautery. During this lysis of adhesions, I was able to reduce the sigmoid colon out of the hernia. Of note, the sigmoid colon was intimately involved within the hernia and the dissection was difficult. The bowel was examined after reduction and noted to be viable and pathology free. This reduction and lysis of adhesions took approximately 45 minutes. This left a 5.5 cm defect in the right lower quadrant. This defect was closed with a running 0 Stratafix suture. A 15 by 10 cm Ventralight mesh was then placed in the underlay position. The mesh was centered over the defect and noted to have good wide local coverage. I then sutured the mesh in place with 2 0 V lock suture x2. The mesh was noted to be tension-free and flat, with a good noted overlap again of the defect. The robot was then undocked. The abdomen was then desufflated and all ports were removed. The incisions were then closed with 4-0 Monocryl subcuticular sutures. Dermabond was placed on all wounds. The patient tolerated the procedure well and was extubated postoperatively. She will be sent to the recovery room in stable condition. Estimated Blood Loss 20 Pathology None sent Complications No immediate complications Condition Stable Disposition PACU [facility] Billing Surgery - Charge Forward: Surgery Billing
[2025-01-01] MEDS: fentaNYL CITRATE INJ (*CRX) 100 MCG/2 ML VIAL 25 MCG IV PUSH ×6 (09:58→13:58)
--- NOTE | 2025-01-01 10:18 | SUR.PREOP ---
1016 dr mckinnon here to see pt, orders received
--- NOTE | 2025-01-01 10:23 | SUR.PHASEI ---
portable chest xray done
--- NOTE | 2025-01-01 10:43 | ECG_ITS ---
Test Date: 2025-01-01 11:00:46 Measurements Intervals Reynolds Rate: 77 P: 57 AR: 166 QRS: -6 QRSD: 90 T: 62 QT: 400 QTc: 454 Interpretive Statements SINUS RHYTHM POSSIBLE ANTERIOR MYOCARDIAL INFARCTION , PROBABLY OLD [30 ms Q WAVE IN V3/V4, OR R < 0.2 mV IN V4] Compared to ECG 12/24/2024 10:52:33 Myocardial infarct finding now present Electronically Signed On 01-01-2025 14:11:24 CDT by Reba Mo
--- NOTE | 2025-01-01 10:47 | SUR.PHASEI ---
1043 dr mckinnon here to see pt
--- NOTE | 2025-01-01 11:00 | SUR.PHASEI ---
1045 pt wakens with verbal stimuli, follows simple commands, does not keep eyes open for long.
--- NOTE | 2025-01-01 11:03 | SUR.PHASEI ---
1100 Dr Choi here to see pt. EKG done and seen by Dr. Choi
[2025-01-01] MEDS: SUGAMMADEX SODIUM 200 MG/2 ML VIAL 150 MG IV PUSH (11:05)
[2025-01-01] MEDS: ONDANSETRON INJ 4 MG/2 ML VIAL IV PUSH ×2 (11:17→20:54)
[2025-01-01] MEDS: IPRATROPIUM 0.5 MG/ALBUTEROL SULFATE 2.5 MG AMPUL.NEB 3 ML INHALATION ×2 (11:27→21:15)
--- NOTE | 2025-01-01 13:55 | P.CONIN_ITS ---
Assessment and Plan Assessment and plan (1) Hypoxia: Code(s): R09.02 - Hypoxemia Status: Acute Assessment and Plan: Possible etiologies include aspiration pneumonia versus atelectasis versus negative pressure pulmonary edema versus pulmonary embolism Will check CTA to rule out PE Blood cultures, empiric Zosyn, check procalcitonin Check ABG BiPAP for few hours, if pt tolerates, to help with Edema/atelectasis IS Bronchodilators (2) Acquired hypothyroidism: Code(s): E03.9 - Hypothyroidism, unspecified Status: Acute Assessment and Plan: Continue levothyroxine. Check TSH (3) Incisional hernia: Qualifiers: Obstruction and gangrene presence: without obstruction or gangrene Q ualified Code(s): K43.2 - Incisional hernia without obstruction or gangrene Code(s): K43.2 - Incisional hernia without obstruction or gangrene Status: Acute Assessment and Plan: Status post robotic assisted hernia repairs and additional lysis Management to General surgery Plan DVT prophylaxis -Lovenox Stress ulcer prophylaxis -PPI Code Status - Full Code Total Critical Care Time - 30 minutes Due to a high probability of clinically significant, life threatening deterioration, the patient required my highest level of preparedness to intervene emergently and I personally spent this critical care time directly and personally managing the patient. This critical care time included obtaining a history; examining the patient; pulse oximetry; ordering and review of studies; arranging urgent treatment with development of a management plan; evaluation of patient's response to treatment; frequent reassessment; and discussions with other providers. It was exclusive of separately billable procedures and treating other patients and teaching time. Please see Assessment and Plan section and the rest of the note for further information on patient assessment and treatment [employer] Consult Note Consult date: 01/02/25 Reason for consult: Hypoxia HPI: Cuca More is a 74 year old female 74 yo female w/ HLD, JACOB, depression, osteopenia, hypothyroidism and mild cognitive deficit was admitted today for elective repair of right lower quadrant incisional hernia which was incarcerated. It was a robotic assisted surgery. Surgery was mostly uneventful but postop patient developed hypoxia requiring increased amount of oxygen.. She is being admitted to ICU postop for monitoring, further evaluation and management. Patient states that she ate as per instructions prior to surgery. She states she is having pain at the site of surgery and rates at 4/10. Denied any radiation, aggravating or relieving factor. Pain is achy in quality. No associated nausea vomiting. She states she is not short of breath. She does have some cough which is dry. She states prior to surgery she was not having any cough shortness of breath or fever. No sick contact. All the systems were reviewed and were negative. She is currently on 8 L nasal cannula. [facility] Past Medical History Medical History Depression Mild cognitive impairment Status post fall Acute left-sided low back pain with sciatica ETD (eustachian tube dysfunction) Surgical History Surgical History Hx of colectomy Robotic assisted sigmoid colectomy extensive lysis of adhesions of approx 2 hours on 04/[address] Benavides. Family History Family History Father Carcinoma of colon Other Family history of malignant neoplasm Social History Social History Social History: Single Smoking status: Never smoker Second hand tobacco smoke exposure: No Alcohol intake: former Drinks per week: 1 Alcohol use details: 2 DRINKS PER MONTH Substance use: never Substance use type: does not use Do You Feel Safe in your Home?: Yes Lack of Transportation: No Lack of Food: Never True Current Housing: I Have Housing Concerned About Future Housing: No Difficulty Paying Gas/Electric Bills: No Difficulty Paying for Meds: No Currently Unemployed: No Education: Associate Degree Difficulty w/ Childcare or Family Care: No Living arrangements: alone Occupation/Education: retired Gender identity (if verbalized by the patient): Female Sexual Orientation (if Verbalized by the Patient): Straight or Heterosexual Spiritual care concerns: No Meds Home Medications and Allergies Home Medications Medication Instructions Recorded Confirmed Type [id number]-[id number]-kmpy tablet 1 tablet PO DAILY 03/26/23 12/19/24 History multivitamin 1 tablet PO DAILY 03/26/23 12/19/24 History multivitamin with minerals 1 tablet PO DAILY 03/26/23 12/19/24 History (Hair,Skin and Nails tablet) levothyroxine 75 mcg capsule 75 mcg PO DAILY #30 caps 11/12/23 01/01/25 Rx donepezil 5 mg tablet (Aricept) 5 mg PO QHS #90 tabs 03/11/24 12/19/24 Rx coenzyme Q10 100 mg capsule 100 mg PO DAILY #30 caps 05/06/24 12/19/24 Rx (CoQ-10) melatonin 3 mg capsule 3 mg PO QHS #30 caps 05/06/24 12/19/24 Rx buspirone 5 mg tablet 5 mg PO BID #60 tabs 06/10/24 01/01/25 Rx escitalopram oxalate 20 mg tablet 20 mg PO DAILY #90 tabs 08/13/24 01/01/25 Rx cyclobenzaprine 10 mg tablet 10 mg PO TID PRN Leg cramps #90 11/01/24 12/19/24 Rx tabs bupropion HCl 150 mg 24 hr tablet, 150 mg PO DAILY #90 tabs 11/19/24 01/01/25 Rx extended release (Wellbutrin XL) atorvastatin 10 mg tablet 10 mg PO DAILY #90 tabs 12/08/24 12/19/24 Rx cholecalciferol (vitamin D3) 50 2,000 unit PO DAILY 12/19/24 12/19/24 History mcg (2,000 unit) capsule lactobacillus combination no.4 3 3,000 mmu cells PO DAILY 12/19/24 12/19/24 History billion cell capsule (Probiotic) docusate sodium 100 mg capsule 100 mg PO BID #30 caps 01/01/25 Rx (Colace) hydrocodone 5 mg-acetaminophen 325 1 tablet PO Q6H PRN pain #30 tabs 01/01/25 Rx mg tablet Allergies Allergy/AdvReac Type Severity Reaction Status Date / Time morphine AdvReac Severe Confusion Verified 01/01/25 07:07 Vital Signs Vital Signs - 24 hr 01/01/25 07:09 01/01/25 09:26 01/01/25 09:30 Temperature 36.6 C 36.5 C Pulse Rate 73 71 Respiratory Rate 11 L Blood Pressure 101/72 110/46 L Pulse Oximetry 97 85 L 93 Oxygen Delivery Room Air Simple Face Mask Non-Rebreather Mask Oxygen Flow Rate 10 15 01/01/25 09:40 01/01/25 09:55 01/01/25 10:10 Temperature Pulse Rate 84 74 82 Respiratory Rate 18 21 H 22 H Blood Pressure 119/50 L 113/82 105/94 H Pulse Oximetry 93 92 91 Oxygen Delivery Non-Rebreather Mask Non-Rebreather Mask Non-Rebreather Mask Oxygen Flow Rate 15 15 15 01/01/25 10:25 01/01/25 10:37 01/01/25 10:40 Temperature Pulse Rate 89 76 Respiratory Rate 22 H 16 Blood Pressure 112/99 H 117/59 L Pulse Oximetry 93 92 94 Oxygen Delivery Non-Rebreather Mask Non-Rebreather Mask Non-Rebreather Mask Oxygen Flow Rate 15 15 15 01/01/25 10:55 01/01/25 11:10 01/01/25 11:25 Temperature Pulse Rate 77 82 90 Respiratory Rate 14 17 18 Blood Pressure 118/69 113/80 101/64 Pulse Oximetry 91 91 92 Oxygen Delivery Non-Rebreather Mask Non-Rebreather Mask Non-Rebreather Mask Oxygen Flow Rate 15 15 15 01/01/25 11:30 01/01/25 11:38 01/01/25 11:40 Temperature Pulse Rate 81 88 80 Respiratory Rate 20 20 17 Blood Pressure 121/65 Pulse Oximetry 97 Oxygen Delivery Non-Rebreather Mask Oxygen Flow Rate 15 01/01/25 11:55 01/01/25 12:10 01/01/25 12:25 Temperature Pulse Rate 84 95 86 Respiratory Rate 18 16 17 Blood Pressure 118/62 113/65 114/66 Pulse Oximetry 91 91 97 Oxygen Delivery Simple Face Mask Simple Face Mask Simple Face Mask Oxygen Flow Rate 10 10 8 01/01/25 12:40 01/01/25 12:55 01/01/25 13:15 Temperature Pulse Rate 84 85 87 Respiratory Rate 19 15 21 H Blood Pressure 119/69 120/63 Pulse Oximetry 93 95 92 Oxygen Delivery Simple Face Mask High Flow Therapy with Na High Flow Therapy with Na Oxygen Flow Rate 8 8 8 01/01/25 13:30 Temperature Pulse Rate 87 Respiratory Rate 13 Blood Pressure 110/72 Pulse Oximetry 92 Oxygen Delivery High Flow Therapy with Na Oxygen Flow Rate 8 Exam 2 Narrative: General: Pt is alert awake and in NAD Lungs/Chest: Trachea central coarse BS B/L, bilateral crackles on the bases, no wheezing, no respiratory distress or use of accessory muscles Cardiac: RRR. Normal S1 S2. No murmurs Circulation: Pedal pulses are intact and symmetrical. Abdomen: Normal bowel sounds.. Soft. NT. ND. Extremities: No clubbing, cyanosis or edema. Warm : Holt in place Neurologic: Follows commands. Moves all 4 extremities PERRL AO x3 Skin: No Rash Results Labs 01/02/25 03:59 01/02/25 03:59 Labs: Impressions Chest X-Ray 01/01/25 10:28 IMPRESSION: Left basilar atelectasis versus pneumonia. Bilateral interstitial thickening suggestive of pneumonitis. Pulmonary edema is less likely. Quality VTE Prophylaxis VTE prophylaxis: pharmacologic ordered Hospitalist [facility] Advance Care Plan I have confirmed that the patient's Advanced Care Plan is present, code status is documented, or surrogate decision maker is listed in patient medical record.: Yes Medication Reconciliation I have utilized all available resources to obtain, update and review the patients current medications (includes all prescriptions, OTC, herbals, cannabis, and nutritional supplements).: Yes
--- NOTE | 2025-01-01 14:18 | SUR.PHASEI ---
DIRECTOR APPOINTMENT HERE TO SEE PT IN PACU; RCT HERE TO PERFORM ABGs.
[2025-01-01 14:32] LABS: Alveolar/Arterial O2 Gradient 391.4 mmHg; Base Excess ABG -2.6 mEq/l (+/-2.0); Fractional Inspired Oxygen 70 %; HCO3 ABG 22.1 mEq/l (22.0-26.0); Oxygen Content ABG 18.6 %vol (16.0-22.0); PCO2 ABG 38.2 mmHg (35.0-45.0); PO2 ABG 66.6 mmHg (80.0-100.0); PO2 FiO2 Ratio Arterial Blood 0.95 %; Total Hemoglobin 14.2 g/dL (12.0-18.0); pH ABG 7.381 (7.350-7.450)
[2025-01-01 14:33] LABS: Site Drawn LEFT RADIAL
[2025-01-01 14:34] LABS: Device NASAL CANNULA; Modified Allen's Test Pass
--- NOTE | 2025-01-01 15:10 | PCRCNOTE ---
Pt arrived to ICU 7 nauseated and throwing up. BIPAP on stand by. No respiratory distress noted at this time.
--- NOTE | 2025-01-01 15:15 | ADMGEN ---
This patient, Cuca More, was admitted to -. Patient/family oriented to hospital policies and general routines including ID bracelet, bed and alarms, visiting hours, pain management, procedures, bathroom and other care routines, personal items, smoking policy, room service/diet, and visiting hours. Information on how to activate the Rapid Response Team has been discussed. Patient/Family are encouraged to report perceived risks to care and to ask questions if they do not understand what they are told or what they should do.
[2025-01-01 17:03] LABS: Influenza A QL RT-PCR Negative (Negative); Influenza B QL RT-PCR Negative (Negative); RSV RNA, RT-PCR Negative (Negative); SARS-CoV-2 RNA PCR Negative (Negative)
[2025-01-01 17:06] LABS: Basophils Percent Auto 0.2 % (0.2-1.2); Hematocrit 44.5 % (37.0-47.0); Hemoglobin 14.1 g/dL (12.0-15.0); Immature Granulocyte Absolute 0.08 K/mm3 (0.00-0.031); Immature Granulocyte Percent A 0.5 % (0-0.5); Lymphocytes Absolute Auto 0.52 K/mm3 (0.9-3.2); Lymphocytes Percent Auto 3.1 % (18.3-44.2); Mean Corpuscular HGB Conc 31.7 g/dl (32-36); Mean Corpuscular Hemoglobin 32.3 pg (26-34); Mean Corpuscular Volume 101.8 fl (80-100); Mean Platelet Volume 9.7 fl (7.4-10.4); Monocytes Absolute Auto 1.1 K/mm3 (0.1-0.6); Monocytes Percent Auto 6.7 % (2.6-8.5); Neutrophils Absolute Auto 15.2 K/mm3 (1.3-6.7); Neutrophils Percent Auto 89.5 % (45.5-73.1); Platelet Count Result 222 k/mm3 (150-375); Red Blood Count 4.37 M/mm3 (4.2-5.4); Red Cell Distribution Width 12.7 % (11.5-14.5)
[2025-01-01 17:19] LABS: Alanine Aminotransferase 23 U/L (6-35); Albumin Level 3.9 g/dL (3.5-5.1); Alkaline Phosphatase 89 U/L (38-126); Anion Gap 8 mmol/L (4-12); Aspartate Amino Transferase 31 U/L (14-36); Bilirubin,Total 0.5 mg/dL (0.2-1.3); Blood Urea Nitrogen 18 mg/dL (7-17); Calcium 8.9 mg/dL (8.4-10.2); Carbon Dioxide 23 mmol/L (22-30); Chloride 108 mmol/L (98-107); Estimated CRCL calculation 49 ml/min; Estimated Glomerular Filt Rate > 60; Glucose 149 mg/dL (65-110); Magnesium 1.8 mg/dL (1.6-2.3); Phosphorus 3.3 mg/dL (2.5-4.5); Potassium 4.2 mmol/L (3.4-5.0); Sodium 139 mmol/L (137-145)
[2025-01-01 17:26] LABS: MRSA (PCR) NOT DETECTED (NOT DETECTE)
[2025-01-01 17:28] LABS: NT Pro B Type Natriuretic Pept 791 pg/mL (19.9-100)
[2025-01-01 17:36] LABS: Procalcitonin 0.1 ng/mL
--- NOTE | 2025-01-01 18:31 | PM.IMHP ---
H&P: HPI History of Present Illness Date/Time: 01/01/25 18:31 Chief Complaint: Hypoxia Narrative: patient is 74 y/o female has a elective incision incarcerated hernia, the surgery was uneventful however post surgery patient became hypoxic and requiring 8L of oxygen, patient is currently admitted in ICU for observation, patient stats now feels better however still requiring 8L oxygen, hypoxia possibly 2/2 aspiration pneumonia, PE, acute onset of CHF. to further evaluate CTA chest is ordered and will follow up, will monitor patient in the ICU and further recommendation to follow. Review of Systems Review of Systems: All systems reviewed & are unremarkable except as noted in HPI and below PMFSH Past Medical History Medical History Depression Mild cognitive impairment Status post fall Acute left-sided low back pain with sciatica ETD (eustachian tube dysfunction) Surgical History Surgical History Hx of colectomy Robotic assisted sigmoid colectomy extensive lysis of adhesions of approx 2 hours on 04/[address] Benavides. Family History Family History Father Carcinoma of colon Other Family history of malignant neoplasm Social History Social History Social History: Single Smoking status: Never smoker Second hand tobacco smoke exposure: No Alcohol intake: former Drinks per week: 1 Alcohol use details: 2 DRINKS PER MONTH Substance use: never Substance use type: does not use Do You Feel Safe in your Home?: Yes Lack of Transportation: No Lack of Food: Never True Current Housing: I Have Housing Concerned About Future Housing: No Difficulty Paying Gas/Electric Bills: No Difficulty Paying for Meds: No Currently Unemployed: No Education: Associate Degree Difficulty w/ Childcare or Family Care: No Living arrangements: alone Occupation/Education: retired Gender identity (if verbalized by the patient): Female Sexual Orientation (if Verbalized by the Patient): Straight or Heterosexual Spiritual care concerns: No Meds Home Medications and Allergies Home Medications Medication Instructions Recorded Confirmed Type [id number]-xpow tablet 1 tablet PO DAILY 03/26/23 12/19/24 History multivitamin 1 tablet PO DAILY 03/26/23 12/19/24 History multivitamin with minerals 1 tablet PO DAILY 03/26/23 12/19/24 History (Hair,Skin and Nails tablet) levothyroxine 75 mcg capsule 75 mcg PO DAILY #30 caps 11/12/23 01/01/25 Rx donepezil 5 mg tablet (Aricept) 5 mg PO QHS #90 tabs 03/11/24 12/19/24 Rx coenzyme Q10 100 mg capsule 100 mg PO DAILY #30 caps 05/06/24 12/19/24 Rx (CoQ-10) melatonin 3 mg capsule 3 mg PO QHS #30 caps 05/06/24 12/19/24 Rx buspirone 5 mg tablet 5 mg PO BID #60 tabs 06/10/24 01/01/25 Rx escitalopram oxalate 20 mg tablet 20 mg PO DAILY #90 tabs 08/13/24 01/01/25 Rx cyclobenzaprine 10 mg tablet 10 mg PO TID PRN Leg cramps #90 11/01/24 12/19/24 Rx tabs bupropion HCl 150 mg 24 hr tablet, 150 mg PO DAILY #90 tabs 11/19/24 01/01/25 Rx extended release (Wellbutrin XL) atorvastatin 10 mg tablet 10 mg PO DAILY #90 tabs 12/08/24 12/19/24 Rx cholecalciferol (vitamin D3) 50 2,000 unit PO DAILY 12/19/24 12/19/24 History mcg (2,000 unit) capsule lactobacillus combination no.4 3 3,000 mmu cells PO DAILY 12/19/24 12/19/24 History billion cell capsule (Probiotic) docusate sodium 100 mg capsule 100 mg PO BID #30 caps 01/01/25 Rx (Colace) hydrocodone 5 mg-acetaminophen 325 1 tablet PO Q6H PRN pain #30 tabs 01/01/25 Rx mg tablet Allergies Allergy/AdvReac Type Severity Reaction Status Date / Time morphine AdvReac Severe Confusion Verified 01/01/25 07:07 Vital Signs Vital Signs - 24 hr 01/01/25 07:09 01/01/25 09:26 01/01/25 09:30 Temperature 36.6 C 36.5 C Pulse Rate 73 71 Respiratory Rate 11 L Blood Pressure 101/72 110/46 L Pulse Oximetry 97 85 L 93 Oxygen Delivery Room Air Simple Face Mask Non-Rebreather Mask Oxygen Flow Rate 10 15 01/01/25 09:40 01/01/25 09:55 01/01/25 10:10 Temperature Pulse Rate 84 74 82 Respiratory Rate 18 21 H 22 H Blood Pressure 119/50 L 113/82 105/94 H Pulse Oximetry 93 92 91 Oxygen Delivery Non-Rebreather Mask Non-Rebreather Mask Non-Rebreather Mask Oxygen Flow Rate 15 15 15 01/01/25 10:25 01/01/25 10:37 01/01/25 10:40 Temperature Pulse Rate 89 76 Respiratory Rate 22 H 16 Blood Pressure 112/99 H 117/59 L Pulse Oximetry 93 92 94 Oxygen Delivery Non-Rebreather Mask Non-Rebreather Mask Non-Rebreather Mask Oxygen Flow Rate 15 15 15 01/01/25 10:55 01/01/25 11:10 01/01/25 11:25 Temperature Pulse Rate 77 82 90 Respiratory Rate 14 17 18 Blood Pressure 118/69 113/80 101/64 Pulse Oximetry 91 91 92 Oxygen Delivery Non-Rebreather Mask Non-Rebreather Mask Non-Rebreather Mask Oxygen Flow Rate 15 15 15 01/01/25 11:30 01/01/25 11:38 01/01/25 11:40 Temperature Pulse Rate 81 88 80 Respiratory Rate 20 20 17 Blood Pressure 121/65 Pulse Oximetry 97 Oxygen Delivery Non-Rebreather Mask Oxygen Flow Rate 15 01/01/25 11:55 01/01/25 12:10 01/01/25 12:25 Temperature Pulse Rate 84 95 86 Respiratory Rate 18 16 17 Blood Pressure 118/62 113/65 114/66 Pulse Oximetry 91 91 97 Oxygen Delivery Simple Face Mask Simple Face Mask Simple Face Mask Oxygen Flow Rate 10 10 8 01/01/25 12:40 01/01/25 12:55 01/01/25 13:15 Temperature Pulse Rate 84 85 87 Respiratory Rate 19 15 21 H Blood Pressure 119/69 120/63 Pulse Oximetry 93 95 92 Oxygen Delivery Simple Face Mask High Flow Therapy with Na High Flow Therapy with Na Oxygen Flow Rate 8 8 8 01/01/25 13:30 01/01/25 13:45 01/01/25 14:00 Temperature Pulse Rate 87 89 90 Respiratory Rate 13 22 H 14 Blood Pressure 110/72 124/78 123/71 Pulse Oximetry 92 93 95 Oxygen Delivery High Flow Therapy with Na High Flow Therapy with Na High Flow Therapy with Na Oxygen Flow Rate 8 8 8 01/01/25 14:14 01/01/25 14:30 01/01/25 15:13 Temperature Pulse Rate 90 93 Respiratory Rate 16 16 Blood Pressure 126/65 128/83 Pulse Oximetry 93 93 93 Oxygen Delivery High Flow Therapy with Na High Flow Therapy with Na High Flow Nasal Cannula Oxygen Flow Rate 10 10 8 01/01/25 15:15 01/01/25 16:00 01/01/25 16:13 Temperature 37.1 C Pulse Rate 93 96 92 Respiratory Rate 20 20 Blood Pressure 128/78 123/66 Pulse Oximetry 98 97 Oxygen Delivery Oxygen Flow Rate 01/01/25 17:12 01/01/25 18:00 01/01/25 18:00 Temperature Pulse Rate 92 92 Respiratory Rate 19 Blood Pressure 152/108 H Pulse Oximetry 94 96 Oxygen Delivery High Flow Nasal Cannula Oxygen Flow Rate 8 Exam Narrative: Patient is comfortable, NAD HEENT: eyes are clear and none icteric LUNGS: Bilateral fair entry with rales and rhonchi HEART: RR S1S2 ABD: BS+, Soft and nontender Lower extremities: no edema SKIN: nonjaundiced Neuro: grossly intact. H&P: Results Labs Labs: Short CBC 01/01/25 Range/Units 17:02 WBC 17.0 H (4.5-10.0) K/mm3 Hgb 14.1 D (12.0-15.0) g/dL Hct 44.5 (37.0-47.0) % Plt Count 222 (150-375) k/mm3 BMP 01/01/25 17:02 Sodium 139 Potassium 4.2 Chloride 108 H Carbon Dioxide 23 BUN 18 H D Creatinine 0.79 Glucose 149 H Calcium 8.9 Liver Function 01/01/25 Range/Units 17:02 Total Bilirubin 0.5 (0.2-1.3) mg/dL AST 31 (14-36) U/L ALT 23 (6-35) U/L Alkaline Phosphatase 89 (38-126) U/L Albumin 3.9 (3.5-5.1) g/dL Assessment and Plan Assessment and plan (1) Hypoxia: Code(s): R09.02 - Hypoxemia Status: Acute (2) Incisional hernia: Qualifiers: Obstruction and gangrene presence: without obstruction or gangrene Qualified Code(s): K43.2 - Incisional hernia without obstruction or gangrene Code(s): K43.2 - Incisional hernia without obstruction or gangrene Status: Acute (3) Encounter for surgical aftercare following surgery on the digestive system: Code(s): Z48.815 - Encounter for surgical aftercare following surgery on the digestive system Status: Acute (4) JACOB (generalized anxiety disorder): Code(s): F41.1 - Generalized anxiety disorder Status: Acute (5) Depression: Code(s): F32.A - Depression, unspecified Status: Acute Plan patient is 74 y/o female has a elective incision incarcerated hernia, the surgery was uneventful however post surgery patient became hypoxic and requiring 8L of oxygen, patient is currently admitted in ICU for observation, patient stats now feels better however still requiring 8L oxygen, hypoxia possibly 2/2 aspiration pneumonia, PE, acute onset of CHF. to further evaluate CTA chest is ordered and will follow up, will monitor patient in the ICU and further recommendation to follow.
[2025-01-01] MEDS: HYDROcodone/acetaminophen (*CRX) 5-325 MG TABLET 1 TAB PO (19:02)
[2025-01-01] MEDS: PIPERACILLN/TAZ 3.375GM/NS50ML 3.375 GM/50 ML BAG IVPB ×2 (19:03→23:02)
[2025-01-01 21:10] LABS: Add Urine Microscopic? YES; Appearance Urine Clear (Clear); Bacteria Urine None Seen /hpf; Bilirubin Urine Negative (Negative); Blood Urine 2+ (Negative); Color Urine Yellow (Yellow); Glucose Urine UA Negative (Negative); Ketones Urine 1+ mg/dL (Negative); Leukocyte Esterase Ur Negative LEU/UL (Negative); Nitrate Urine Negative (Negative); Non Pathogenic Casts 0-2; Protein Urine Trace mg/dL (Negative); Specific Grav Ur > 1.045 (1.001-1.035); Squamous Epithelial Cell Urine None Seen /hpf (Few); Urobilinogen Urine 0.2 mg/dL (<2.0); WBC Urine 0-5 /hpf (0-3); pH Urine 5.5 (5.0-9.0)
[2025-01-01] MEDS: ACETAMINOPHEN 325 MG TABLET 650 MG PO (23:03)
[2025-01-02] VITALS (22 sets, daily range): BP systolic 98–119; BP diastolic 57–72; PULSE 78–91; RESP 16–23; TEMP 36.7–36.8; O2SAT 92–95
--- NOTE | 2025-01-02 | ECHO_ITS ---
Patient Info Name: Cuca More Age: 74 years : 1950 Gender: Female Ht: 62 in Wt: 154 lbs BSA: 1.77 m2 HR: 84 bpm BP: 98 / 62 mmHg Heart Rhythm: Sinus Rhythm Technical Quality: Good Exam Date: 01/02/2025 9:28 AM Exam Location: Echo Lab Patient Status: Inpatient Admit Date: 01/01/2025 Staff Ordering Physician: Tito Jose MD Pelt Salter: Jacklyn Barr RDCS Attending Provider: Elsa Benavides MD Exam Type: CA echo dop color flow w con Study Info Indications - CHF Complete two-dimensional, color flow and Doppler transthoracic echocardiogram is performed with contrast to opacify the left ventricle and to improve the deliniation of the left ventricle endocardial borders. Contrast/Agitated Saline Contrast/Ag. Saline: Definity Amount: 5.00 ml Summary 1. Left ventricular chamber dimension is normal. 2. There is mildly increased left ventricular wall thickness. 3. Left ventricular systolic function is mildly reduced, estimated at 40-45%. 4. There is hypokinesis of the mid and distal LV segments with preserved motion of the basal castellon. This regional wall motion abnormality is consistent with Takotsubo cardiomyopathy. 5. The left ventricular diastolic function is grade I diastolic dysfunction. 6. Right ventricular systolic function is normal. 7. Left atrial chamber dimension is mildly enlarged. 8. There is mild mitral valve regurgitation. Left Ventricle Left ventricular chamber dimension is normal. There is mildly increased left ventricular wall thickness. Left ventricular systolic function is mildly reduced, estimated at 40-45%. There is hypokinesis of the mid and distal LV segments with preserved motion of the basal castellon. This regional wall motion abnormality is consistent with Takotsubo cardiomyopathy. The left ventricular diastolic function is grade I diastolic dysfunction. Right Ventricle Right ventricular chamber dimension is normal. Right ventricular systolic function is normal. Left Atria Left atrial chamber dimension is mildly enlarged. Right Atria Right atrial chamber dimension is normal. Atrial Septum Intact interatrial septum visualized by color flow imaging. Aortic Valve The aortic valve is trileaflet. There is no aortic valve stenosis. There is no aortic valve regurgitation. There is mild aortic valve calcification. Pulmonic Valve The pulmonic valve is not well visualized. There is trace pulmonic regurgitation. Mitral Valve There is mild mitral valve regurgitation. Tricuspid Valve There is trace tricuspid valve regurgitation. Pericardium/Pleural There is no pericardial effusion. Inferior Vena Cava Normal inferior vena cava with <50% collapse upon inspiration consistent with elevated right atrial pressure, 8 mmHg. Aorta The aortic root size at the sinus of Valsalva is normal. Left Ventricular Outflow Tract Name Value Normal LVOT 2D LVOT Diameter 2.01 cm LVOT Doppler LVOT Peak Gradient 6 mmHg LVOT Mean Gradient 3 mmHg LVOT VTI 22.87 cm LVOT VTI/AV VTI Ratio 0.93 LVOT Stroke Volume 72.23 ml LVOT CO 14.79 l/min LVOT CI 8.36 L/min/m2 Pulmonic Valve Name Value Normal RVOT Doppler RVOT Peak Gradient 1 mmHg PV Doppler PV Peak Gradient 3 mmHg PV Regurgitation Doppler NM Peak End Diastolic Velocity 131.48 cm/s Mitral Valve Name Value Normal MV Doppler MV Decel K[place]y 361.57 cm/s2 MV PHT 0 s MV Area (PHT) 4.39 cm2 4.00-5.00 MV Diastolic Function MV E Peak Velocity 62.46 cm/s MV A Peak Velocity 101.48 cm/s MV E/A 0.62 MV Decel Time 0 s MV Annular TDI MV E/e' (Septal) 11.67 <=8.00 MV E/e' (Lateral) 7.15 <=8.00 MV E/e' (Average) 9.41 Tricuspid Valve Name Value Normal TV Regurgitation Doppler TR Peak Velocity 287.09 cm/s TR Peak Gradient 33 mmHg Estimated PAP/RSVP RA Pressure 8 mmHg <=5 PA Systolic Pressure 41 mmHg <36 RV Systolic Pressure 41 mmHg <36 Aortic Valve Name Value Normal AV Doppler AV Peak Velocity 137.67 cm/s AV Peak Gradient 8 mmHg AV Mean Gradient 4 mmHg AV VTI 24.48 cm AV Area (Cont Eq VTI) 2.95 cm2 >=3.00 AV Area (Cont Eq Fernando) 2.76 cm2 AV Regurgitation 2D LVOT Area 3.16 cm2 Ventricles Name Value Normal LV Dimensions 2D/MM IVS Diastolic Thickness (2D) 1.03 cm 0.60-1.00 LVID Diastole (2D) 4.45 cm 3.80-5.20 LVIW Diastolic Thickness (2D) 0.90 cm 0.60-0.90 LVID Systole (2D) 2.60 cm 2.20-3.50 LVOT Diameter 2.01 cm LV Mass (2D Cubed) 143.36 g 67.00-162.00 LV Mass Index (2D Cubed) 0.01 g/cm2 0.00-0.01 Relative Wall Thickness (2D) 0.40 LV Fractional Shortening/Ejection Fraction 2D/MM LV Fractional Shortening (2D) 42 % 27-45 LV EF (2D Teicholz) 73 % 54-74 LV Diastolic Volume (4C MOD) 105.97 ml LV EF (4C MOD) 55 % LV Diastolic Volume (2C MOD) 100.65 ml LV EF (2C MOD) 50 % LV Diastolic Volume (BP MOD) 105.27 ml 46.00-106.00 LV Diastolic Volume Index (BP MOD) 0.06 l/m2 0.03-0.06 LV Systolic Volume (BP MOD) 49.41 ml 14.00-42.00 LV Systolic Volume Index (BP MOD) 0.03 l/m2 0.01-0.02 LV EF (BP MOD) 53 % 54-74 LV Diastolic Length (4C) 7.20 cm LV Systolic Length (4C) 5.85 cm LV Stroke Volume (4C MOD) 58.20 ml Atria Name Value Normal LA Dimensions LA Volume (4C A-L) 38.75 ml LA Volume (BP A-L) 42.83 ml RA Dimensions RA Area (4C) 12.97 cm2 <=18.00 Report Signatures
[2025-01-02] MEDS: IPRATROPIUM 0.5 MG/ALBUTEROL SULFATE 2.5 MG AMPUL.NEB 3 ML INHALATION ×4 (02:53→20:43)
[2025-01-02] MEDS: ACETAMINOPHEN 325 MG TABLET 650 MG PO ×4 (03:10→20:10)
[2025-01-02 04:21] LABS: Hematocrit 41.7 % (37.0-47.0); Hemoglobin 13.1 g/dL (12.0-15.0); Mean Corpuscular HGB Conc 31.4 g/dl (32-36); Mean Corpuscular Hemoglobin 31.7 pg (26-34); Mean Platelet Volume 10.2 fl (7.4-10.4); Platelet Count Result 236 k/mm3 (150-375); Red Blood Count 4.13 M/mm3 (4.2-5.4); White Blood Count 16.5 K/mm3 (4.5-10.0)
[2025-01-02 04:33] LABS: Alanine Aminotransferase 24 U/L (6-35); Albumin Level 3.7 g/dL (3.5-5.1); Alkaline Phosphatase 84 U/L (38-126); Anion Gap 6 mmol/L (4-12); Aspartate Amino Transferase 43 U/L (14-36); Bilirubin,Total 0.7 mg/dL (0.2-1.3); Blood Urea Nitrogen 17 mg/dL (7-17); Calcium 8.8 mg/dL (8.4-10.2); Carbon Dioxide 25 mmol/L (22-30); Chloride 107 mmol/L (98-107); Estimated CRCL calculation 42 ml/min; Estimated Glomerular Filt Rate 60; Glucose 112 mg/dL (65-110); Magnesium 1.9 mg/dL (1.6-2.3); Potassium 4.4 mmol/L (3.4-5.0); Sodium 138 mmol/L (137-145)
[2025-01-02] MEDS: LEVOTHYROXINE SODIUM 75 MCG TABLET PO (06:02)
[2025-01-02] MEDS: PIPERACILLN/TAZ 3.375GM/NS50ML 3.375 GM/50 ML BAG IVPB ×4 (06:02→23:41)
--- NOTE | 2025-01-02 08:22 | WPDINTPN ---
Progress Note: A&P Assessment and Plan (1) Hypoxia: Code(s): R09.02 - Hypoxemia Status: Acute Assessment and Plan: Postoperative hypoxia likely secondary to combination of atelectasis, pulmonary edema and aspiration pneumonia Chest CTA No pulmonary embolus. No thoracic aortic dissection. Findings detected bilaterally suggesting pulmonary edema, with multifocal pneumonia less likely. BNP 791, procalcitonin 0.1 Oxygen requirement has improved and patient is now on room air Blood cultures sent and pending, continue empiric Zosyn, ABG reviewed Incentive spirometry, PT OT, up in chair P.r.n. Bronchodilators (2) Acquired hypothyroidism: Code(s): E03.9 - Hypothyroidism, unspecified Status: Acute Assessment and Plan: Continue levothyroxine. Check TSH (3) Incisional hernia: Qualifiers: Obstruction and gangrene presence: without obstruction or gangrene Qualified Code(s): K43.2 - Incisional hernia without obstruction or gangrene Code(s): K43.2 - Incisional hernia without obstruction or gangrene Status: Acute Assessment and Plan: Status post robotic assisted hernia repairs and additional lysis Currently on clear liquid diet Pain control Management to General surgery Plan DVT prophylaxis -Lovenox Stress ulcer prophylaxis -PPI Code Status - Full Code Transfer out ICU today Subjective Date/time seen: 01/02/25 Overnight events reviewed. Afebrile Oxygen requirement has improved and patient was on room air this morning She denies any complaints except the pain in her abdomen which she rates at 8 out 10. She states pain is intermittent and increase and decrease depending on which she is doing and how she sitting. She denies any shortness a breath. She does have some cough which is mostly dry. Patient denies fever, chest pain, shortness of breath, nausea vomiting, diarrhea, headache or constipation. She is not passing any flatus and has not had any bowel movement. All other systems were reviewed and were negative Other Vitals acceptable Review of Systems Review of Systems: All systems reviewed & are unremarkable except as noted in HPI and below (HPI) Exam Narrative: General: Pt is alert awake and in NAD Lungs/Chest: Trachea central coarse BS B/L, few bilateral crackles on the bases, no wheezing, no respiratory distress or use of accessory muscles Cardiac: RRR. Normal S1 S2. No murmurs Circulation: Pedal pulses are intact and symmetrical. Abdomen: Soft, mild tenderness to palpation, decreased bowel sounds, no guarding or rigidity Extremities: No clubbing, cyanosis or edema. Warm : Holt in place Neurologic: Follows commands. Moves all 4 extremities PERRL AO x3 Skin: No Rash Objective Data Vital Signs Vital Signs: Vital Signs - 24 hr 01/01/25 09:26 01/01/25 09:30 01/01/25 09:40 Temperature 36.5 C Pulse Rate 71 84 Respiratory Rate 11 L 18 Blood Pressure 110/46 L 119/50 L Pulse Oximetry 85 L 93 93 Oxygen Delivery Simple Face Mask Non-Rebreather Mask Non-Rebreather Mask Oxygen Flow Rate 10 15 15 01/01/25 09:55 01/01/25 10:10 01/01/25 10:25 Temperature Pulse Rate 74 82 89 Respiratory Rate 21 H 22 H 22 H Blood Pressure 113/82 105/94 H 112/99 H Pulse Oximetry 92 91 93 Oxygen Delivery Non-Rebreather Mask Non-Rebreather Mask Non-Rebreather Mask Oxygen Flow Rate 15 15 15 01/01/25 10:37 01/01/25 10:40 01/01/25 10:55 Temperature Pulse Rate 76 77 Respiratory Rate 16 14 Blood Pressure 117/59 L 118/69 Pulse Oximetry 92 94 91 Oxygen Delivery Non-Rebreather Mask Non-Rebreather Mask Non-Rebreather Mask Oxygen Flow Rate 15 15 15 01/01/25 11:10 01/01/25 11:25 01/01/25 11:30 Temperature Pulse Rate 82 90 81 Respiratory Rate 17 18 20 Blood Pressure 113/80 101/64 Pulse Oximetry 91 92 Oxygen Delivery Non-Rebreather Mask Non-Rebreather Mask Oxygen Flow Rate 15 15 01/01/25 11:38 01/01/25 11:40 01/01/25 11:55 Temperature Pulse Rate 88 80 84 Respiratory Rate 20 17 18 Blood Pressure 121/65 118/62 Pulse Oximetry 97 91 Oxygen Delivery Non-Rebreather Mask Simple Face Mask Oxygen Flow Rate 15 10 01/01/25 12:10 01/01/25 12:25 01/01/25 12:40 Temperature Pulse Rate 95 86 84 Respiratory Rate 16 17 19 Blood Pressure 113/65 114/66 Pulse Oximetry 91 97 93 Oxygen Delivery Simple Face Mask Simple Face Mask Simple Face Mask Oxygen Flow Rate 10 8 8 01/01/25 12:55 01/01/25 13:15 01/01/25 13:30 Temperature Pulse Rate 85 87 87 Respiratory Rate 15 21 H 13 Blood Pressure 119/69 120/63 110/72 Pulse Oximetry 95 92 92 Oxygen Delivery High Flow Therapy with Na High Flow Therapy with Na High Flow Therapy with Na Oxygen Flow Rate 8 8 8 01/01/25 13:45 01/01/25 14:00 01/01/25 14:14 Temperature Pulse Rate 89 90 90 Respiratory Rate 22 H 14 16 Blood Pressure 124/78 123/71 126/65 Pulse Oximetry 93 95 93 Oxygen Delivery High Flow Therapy with Na High Flow Therapy with Na High Flow Therapy with Na Oxygen Flow Rate 8 8 10 01/01/25 14:30 01/01/25 15:13 01/01/25 15:15 Temperature 37.1 C Pulse Rate 93 93 Respiratory Rate 16 20 Blood Pressure 128/83 128/78 Pulse Oximetry 93 93 98 Oxygen Delivery High Flow Therapy with Na High Flow Nasal Cannula Oxygen Flow Rate 10 8 01/01/25 16:00 01/01/25 16:00 01/01/25 16:13 Temperature Pulse Rate 96 92 92 Respiratory Rate 19 20 Blood Pressure 123/66 Pulse Oximetry 96 97 Oxygen Delivery High Flow Nasal Cannula Oxygen Flow Rate 6 01/01/25 17:12 01/01/25 18:00 01/01/25 18:00 Temperature Pulse Rate 92 92 Respiratory Rate 19 Blood Pressure 152/108 H Pulse Oximetry 94 96 Oxygen Delivery High Flow Nasal Cannula Oxygen Flow Rate 8 01/01/25 20:00 01/01/25 20:00 01/01/25 20:00 Temperature 36.8 C Pulse Rate 94 95 94 Respiratory Rate 22 H 22 H Blood Pressure 93/82 L Pulse Oximetry 91 91 Oxygen Delivery High Flow Nasal Cannula Oxygen Flow Rate 6 01/01/25 21:15 01/01/25 21:26 01/01/25 21:27 Temperature Pulse Rate 87 91 Respiratory Rate 20 20 Blood Pressure Pulse Oximetry 98 Oxygen Delivery High Flow Nasal Cannula Oxygen Flow Rate 8 01/01/25 22:00 01/01/25 22:00 01/02/25 00:00 Temperature Pulse Rate 90 90 86 Respiratory Rate 21 H 18 Blood Pressure 104/61 Pulse Oximetry 92 92 Oxygen Delivery High Flow Nasal Cannula Oxygen Flow Rate 6 01/02/25 00:00 01/02/25 00:00 01/02/25 02:00 Temperature 36.7 C Pulse Rate 86 86 83 Respiratory Rate 18 Blood Pressure 98/65 L Pulse Oximetry 92 Oxygen Delivery Oxygen Flow Rate 01/02/25 02:00 01/02/25 02:54 01/02/25 03:04 Temperature Pulse Rate 83 85 88 Respiratory Rate 17 20 20 Blood Pressure 107/72 Pulse Oximetry 93 Oxygen Delivery Oxygen Flow Rate 01/02/25 04:00 01/02/25 04:00 01/02/25 04:00 Temperature 36.8 C Pulse Rate 84 83 84 Respiratory Rate 20 20 Blood Pressure 112/72 Pulse Oximetry 94 94 Oxygen Delivery High Flow Nasal Cannula Oxygen Flow Rate 6 01/02/25 06:00 01/02/25 06:00 01/02/25 08:00 Temperature 36.7 C Pulse Rate 84 84 78 Respiratory Rate 16 20 Blood Pressure 98/62 L 100/64 Pulse Oximetry 95 92 Oxygen Delivery Oxygen Flow Rate Intake/Output Intake/Output: Intake & Output 12/30/24 12/31/24 01/01/25 01/02/25 23:59 23:59 23:59 23:59 Intake Total 1300 340 Output Total 250 500 Balance 1050 -160 Meds/Results Medications: Active Medications Generic Name Dose Route Start Last Admin Trade Name Freq PRN Reason Stop Dose Admin Acetaminophen 650 mg 01/01/25 17:42 01/02/25 03:10 Acetaminophen 325 Mg Tablet PO 650 mg Q4H PRN Administration Mild Pain (1-3) or Fever Hydrocodone Bitart/Acetaminophen 1 tab 01/01/25 17:42 Hydrocodone/Acetaminophen (*Crx) 10-325 Mg Tablet PO Q4H PRN Pain Rated 7-10 Hydrocodone Bitart/Acetaminophen 1 tab 01/01/25 17:42 01/01/25 19:02 Hydrocodone/Acetaminophen (*Crx) 5-325 Mg Tablet PO 1 tab Q4H PRN Administration Pain Rated 4-6 Albuterol/Ipratropium 3 ml 01/01/25 20:00 01/02/25 02:53 Ipratropium 0.5 Mg/Albuterol Sulfate 2.5 Mg Ampul.Neb 3 Ml INHALATION 3 ml Q6HRT ZORAIDA Administration Enoxaparin Sodium 40 mg 01/02/25 09:00 Enoxaparin 40 Mg/0.4 Ml Syringe SUB-Q DAILY ZORAIDA Piperacillin/Tazobactam/Dextrose 3.375 gm in 50 mls @ 100 mls/hr 01/01/25 17:35 01/02/25 06:46 Zosyn 3.375 Gm/Ns 50 Ml IVPB Infused Q6HR ZORAIDA Infusion Levothyroxine Sodium 75 mcg 01/02/25 06:30 01/02/25 06:02 Levothyroxine Sodium 75 Mcg Tablet PO 75 mcg DAILY@0630 ZORAIDA Administration Ondansetron HCl 4 mg 01/01/25 15:24 01/01/25 20:54 Ondansetron Inj 4 Mg/2 Ml Vial IV PUSH 4 mg Q6H PRN Administration Nausea And Vomiting Pantoprazole Sodium 40 mg 01/02/25 09:00 Pantoprazole Sodium Iv 40 Mg Vial IV PUSH QAM ZORAIDA Perflutren Lipid Microsphere 0 ml 01/02/25 07:33 Perflutren Lipid Microspheres 1.5 Ml Vial Diluted To 10 Ml Total Volume IV PUSH 01/05/25 07:33 ONCE PRN adequate visualization Protocol Radiology Results: ITS Impressions Head CT 01/01/25 19:42 Impression: No acute intracranial hemorrhage or suspicious mass effect. Chest CTA 01/01/25 19:43 IMPRESSION: No pulmonary embolus. No thoracic aortic dissection. Findings detected bilaterally suggesting pulmonary edema, with multifocal pneumonia less likely. Chest X-Ray 01/02/25 07:53 Impression: 1: Patchy bilateral airspace disease, compatible with pneumonia. Labs Labs: Laboratory Results - last 24 hr 01/01/25 01/01/25 01/01/25 14:16 15:56 16:18 WBC RBC Hgb Hct MCV MCH MCHC RDW Plt Count MPV Immature Gran % (Auto) Neut % (Auto) Lymph % (Auto) [place] % (Auto) Eos % (Auto) Baso % (Auto) Lymph # (Auto) [place] # (Auto) Eos # (Auto) Baso # (Auto) Abs Immat Gran (auto) Absolute Neuts (auto) Absolute Nucleated RBC Nucleated RBC % Puncture Site Left radial ABG pH 7.381 ABG pCO2 38.2 ABG pO2 66.6 L ABG PO2/FiO2 Ratio 0.95 ABG HCO3 22.1 ABG O2 Saturation 93.0 L ABG O2 Content 18.6 ABG Base Excess -2.6 A-a Gradient 391.4 Oxyhemoglobin 93.0 Total Hemoglobin 14.2 O2 Delivery Device Nasal cannula O2 Liters/Min 10.0 FiO2 70 Sodium Potassium Chloride Carbon Dioxide Anion Gap BUN Creatinine Estim Creat Clear Calc Estimated GFR Glucose Calcium Phosphorus Magnesium Total Bilirubin AST ALT Alkaline Phosphatase NT-Pro-B Natriuret Pep Total Protein Albumin Procalcitonin TSH (Reflex) Urine Color Urine Appearance Urine pH Ur Specific [place] Urine Protein Urine Glucose (UA) Urine Ketones Ur Blood (Man) Urine Nitrate Urine Bilirubin Urine Urobilinogen Leukocyte Esterase Rfl Urine RBC Urine WBC Ur Squamous Epith Cells Urine Bacteria Urine Casts Nasal MRSA (PCR) Not detected Influenza A (RT-PCR) Negative Influenza B (RT-PCR) Negative RSV (RT-PCR) Negative SARS-CoV-2 RNA (RT-PCR) Negative 01/01/25 01/01/25 01/02/25 17:02 20:59 03:59 WBC 17.0 H 16.5 H RBC 4.37 4.13 L Hgb 14.1 D 13.1 Hct 44.5 41.7 MCV 101.8 H 101.0 H MCH 32.3 31.7 MCHC 31.7 L 31.4 L RDW 12.7 13.0 Plt Count 222 236 MPV 9.7 10.2 Immature Gran % (Auto) 0.5 Neut % (Auto) 89.5 H Lymph % (Auto) 3.1 L [place] % (Auto) 6.7 Eos % (Auto) 0.0 Baso % (Auto) 0.2 Lymph # (Auto) 0.52 L [place] # (Auto) 1.1 H Eos # (Auto) 0.0 Baso # (Auto) 0.0 Abs Immat Gran (auto) 0.08 H Absolute Neuts (auto) 15.2 H Absolute Nucleated RBC 0.000 Nucleated RBC % 0.0 Puncture Site ABG pH ABG pCO2 ABG pO2 ABG PO2/FiO2 Ratio ABG HCO3 ABG O2 Saturation ABG O2 Content ABG Base Excess A-a Gradient Oxyhemoglobin Total Hemoglobin O2 Delivery Device O2 Liters/Min FiO2 Sodium 139 138 Potassium 4.2 4.4 Chloride 108 H 107 Carbon Dioxide 23 25 Anion Gap 8 6 BUN 18 H D 17 Creatinine 0.79 0.92 Estim Creat Clear Calc 49 42 Estimated GFR > 60 60 Glucose 149 H 112 H Calcium 8.9 8.8 Phosphorus 3.3 Magnesium 1.8 1.9 Total Bilirubin 0.5 0.7 AST 31 43 H ALT 23 24 Alkaline Phosphatase 89 84 NT-Pro-B Natriuret Pep 791 H Total Protein 7.0 7.0 Albumin 3.9 3.7 Procalcitonin 0.1 TSH (Reflex) 1.060 Urine Color Yellow Urine Appearance Clear Urine pH 5.5 Ur Specific [place] > 1.045 H Urine Protein Trace Urine Glucose (UA) Negative Urine Ketones 1+ H Ur Blood (Man) 2+ H Urine Nitrate Negative Urine Bilirubin Negative Urine Urobilinogen 0.2 Leukocyte Esterase Rfl Negative Urine RBC 6-10 H Urine WBC 0-5 Ur Squamous Epith Cells None seen Urine Bacteria None seen Urine Casts 0-2 Nasal MRSA (PCR) Influenza A (RT-PCR) Influenza B (RT-PCR) RSV (RT-PCR) SARS-CoV-2 RNA (RT-PCR) Quality VTE Prophylaxis VTE prophylaxis: pharmacologic ordered
[2025-01-02] MEDS: PANTOPRAZOLE SODIUM IV 40 MG VIAL IV PUSH (08:29)
[2025-01-02] MEDS: ENOXAPARIN 40 MG/0.4 ML SYRINGE SUB-Q (08:31)
[2025-01-02] MEDS: PERFLUTREN LIPID MICROSPHERES 1.5 ML VIAL DILUTED TO 10 ML TOTAL VOLUME IV PUSH (10:00)
--- NOTE | 2025-01-02 10:48 | PM.PNGS ---
Progress Note: A&P Assessment and Plan (1) Incisional hernia: Qualifiers: Obstruction and gangrene presence: without obstruction or gangrene Qualified Code(s): K43.2 - Incisional hernia without obstruction or gangrene Code(s): K43.2 - Incisional hernia without obstruction or gangrene Status: Acute Assessment and Plan: status post robotic repair, doing well, will get abdominal binder, encourage out of bed, advance diet as tolerated (2) Hypoxia: Code(s): R09.02 - Hypoxemia Status: Acute Assessment and Plan: improved, management per primary team, okay to transfer to floor Subjective Subjective Date/Time Seen: 01/02/25 10:48 Interval history: feels ok, mild incisional pain Review of Systems Review of Systems: All systems reviewed & are unremarkable except as noted in HPI and below Exam Const: General: cooperative, comfortable and no acute distress Resp: Auscultation: diminished lung sounds Cardio: Rate: regular rate Rhythm: regular rhythm GI: Inspection: normal to inspection, distended and incision GI Palp: Yes abdominal tenderness and Yes Soft to palpation Objective Data Vital Signs Vital Signs: Vital Signs - 24 hr 01/01/25 10:55 01/01/25 11:10 01/01/25 11:25 Temperature Pulse Rate 77 82 90 Respiratory Rate 14 17 18 Blood Pressure 118/69 113/80 101/64 Pulse Oximetry 91 91 92 Oxygen Delivery Non-Rebreather Mask Non-Rebreather Mask Non-Rebreather Mask Oxygen Flow Rate 15 15 15 01/01/25 11:30 01/01/25 11:38 01/01/25 11:40 Temperature Pulse Rate 81 88 80 Respiratory Rate 20 20 17 Blood Pressure 121/65 Pulse Oximetry 97 Oxygen Delivery Non-Rebreather Mask Oxygen Flow Rate 15 01/01/25 11:55 01/01/25 12:10 01/01/25 12:25 Temperature Pulse Rate 84 95 86 Respiratory Rate 18 16 17 Blood Pressure 118/62 113/65 114/66 Pulse Oximetry 91 91 97 Oxygen Delivery Simple Face Mask Simple Face Mask Simple Face Mask Oxygen Flow Rate 10 10 8 01/01/25 12:40 01/01/25 12:55 01/01/25 13:15 Temperature Pulse Rate 84 85 87 Respiratory Rate 19 15 21 H Blood Pressure 119/69 120/63 Pulse Oximetry 93 95 92 Oxygen Delivery Simple Face Mask High Flow Therapy with Na High Flow Therapy with Na Oxygen Flow Rate 8 8 8 01/01/25 13:30 01/01/25 13:45 01/01/25 14:00 Temperature Pulse Rate 87 89 90 Respiratory Rate 13 22 H 14 Blood Pressure 110/72 124/78 123/71 Pulse Oximetry 92 93 95 Oxygen Delivery High Flow Therapy with Na High Flow Therapy with Na High Flow Therapy with Na Oxygen Flow Rate 8 8 8 01/01/25 14:14 01/01/25 14:30 01/01/25 15:13 Temperature Pulse Rate 90 93 Respiratory Rate 16 16 Blood Pressure 126/65 128/83 Pulse Oximetry 93 93 93 Oxygen Delivery High Flow Therapy with Na High Flow Therapy with Na High Flow Nasal Cannula Oxygen Flow Rate 10 10 8 01/01/25 15:15 01/01/25 16:00 01/01/25 16:00 Temperature 37.1 C Pulse Rate 93 96 92 Respiratory Rate 20 19 Blood Pressure 128/78 Pulse Oximetry 98 96 Oxygen Delivery High Flow Nasal Cannula Oxygen Flow Rate 6 01/01/25 16:13 01/01/25 17:12 01/01/25 18:00 Temperature Pulse Rate 92 92 Respiratory Rate 20 Blood Pressure 123/66 Pulse Oximetry 97 94 Oxygen Delivery High Flow Nasal Cannula Oxygen Flow Rate 8 01/01/25 18:00 01/01/25 20:00 01/01/25 20:00 Temperature Pulse Rate 92 94 95 Respiratory Rate 19 22 H Blood Pressure 152/108 H Pulse Oximetry 96 91 Oxygen Delivery High Flow Nasal Cannula Oxygen Flow Rate 6 01/01/25 20:00 01/01/25 21:15 01/01/25 21:26 Temperature 36.8 C Pulse Rate 94 87 91 Respiratory Rate 22 H 20 20 Blood Pressure 93/82 L Pulse Oximetry 91 Oxygen Delivery Oxygen Flow Rate 01/01/25 21:27 01/01/25 22:00 01/01/25 22:00 Temperature Pulse Rate 90 90 Respiratory Rate 21 H Blood Pressure 104/61 Pulse Oximetry 98 92 Oxygen Delivery High Flow Nasal Cannula Oxygen Flow Rate 8 01/02/25 00:00 01/02/25 00:00 01/02/25 00:00 Temperature 36.7 C Pulse Rate 86 86 86 Respiratory Rate 18 18 Blood Pressure 98/65 L Pulse Oximetry 92 92 Oxygen Delivery High Flow Nasal Cannula Oxygen Flow Rate 6 01/02/25 02:00 01/02/25 02:00 01/02/25 02:54 Temperature Pulse Rate 83 83 85 Respiratory Rate 17 20 Blood Pressure 107/72 Pulse Oximetry 93 Oxygen Delivery Oxygen Flow Rate 01/02/25 03:04 01/02/25 04:00 01/02/25 04:00 Temperature Pulse Rate 88 84 83 Respiratory Rate 20 20 Blood Pressure Pulse Oximetry 94 Oxygen Delivery High Flow Nasal Cannula Oxygen Flow Rate 6 01/02/25 04:00 01/02/25 06:00 01/02/25 06:00 Temperature 36.8 C Pulse Rate 84 84 84 Respiratory Rate 20 16 Blood Pressure 112/72 98/62 L Pulse Oximetry 94 95 Oxygen Delivery Oxygen Flow Rate 01/02/25 08:00 01/02/25 08:28 01/02/25 08:35 Temperature 36.7 C Pulse Rate 78 89 Respiratory Rate 20 20 Blood Pressure 100/64 Pulse Oximetry 92 93 Oxygen Delivery Nasal Cannula Oxygen Flow Rate 2 01/02/25 08:43 01/02/25 10:00 01/02/25 10:18 Temperature 36.8 C Pulse Rate 85 90 Respiratory Rate 20 23 H Blood Pressure 101/57 L Pulse Oximetry 93 Oxygen Delivery Oxygen Flow Rate Intake/Output Intake/Output: Intake & Output 12/30/24 12/31/24 01/01/25 01/02/25 23:59 23:59 23:59 23:59 Intake Total 1300 577 Output Total 250 500 Balance 1050 77 Meds/Results Medications: Active Medications Generic Name Dose Route Start Last Admin Trade Name Freq PRN Reason Stop Dose Admin Acetaminophen 650 mg 01/01/25 17:42 01/02/25 08:28 Acetaminophen 325 Mg Tablet PO 650 mg Q4H PRN Administration Mild Pain (1-3) or Fever Hydrocodone Bitart/Acetaminophen 1 tab 01/01/25 17:42 Hydrocodone/Acetaminophen (*Crx) 10-325 Mg Tablet PO Q4H PRN Pain Rated 7-10 Hydrocodone Bitart/Acetaminophen 1 tab 01/01/25 17:42 01/01/25 19:02 Hydrocodone/Acetaminophen (*Crx) 5-325 Mg Tablet PO 1 tab Q4H PRN Administration Pain Rated 4-6 Albuterol/Ipratropium 3 ml 01/01/25 20:00 01/02/25 08:26 Ipratropium 0.5 Mg/Albuterol Sulfate 2.5 Mg Ampul.Neb 3 Ml INHALATION 3 ml Q6HRT ZORAIDA Administration Enoxaparin Sodium 40 mg 01/02/25 09:00 01/02/25 08:31 Enoxaparin 40 Mg/0.4 Ml Syringe SUB-Q 40 mg DAILY ZORAIDA Administration Piperacillin/Tazobactam/Dextrose 3.375 gm in 50 mls @ 100 mls/hr 01/01/25 17:35 01/02/25 06:46 Zosyn 3.375 Gm/Ns 50 Ml IVPB Infused Q6HR ZORAIDA Infusion Levothyroxine Sodium 75 mcg 01/02/25 06:30 01/02/25 06:02 Levothyroxine Sodium 75 Mcg Tablet PO 75 mcg DAILY@0630 ZORAIDA Administration Ondansetron HCl 4 mg 01/01/25 15:24 01/01/25 20:54 Ondansetron Inj 4 Mg/2 Ml Vial IV PUSH 4 mg Q6H PRN Administration Nausea And Vomiting Pantoprazole Sodium 40 mg 01/02/25 09:00 01/02/25 08:29 Pantoprazole Sodium Iv 40 Mg Vial IV PUSH 40 mg QAM ZORAIDA Administration Perflutren Lipid Microsphere 0 ml 01/02/25 07:33 Perflutren Lipid Microspheres 1.5 Ml Vial Diluted To 10 Ml Total Volume IV PUSH 01/05/25 07:33 ONCE PRN adequate visualization Protocol Radiology Results: ITS Impressions Head CT 01/01/25 19:42 Impression: No acute intracranial hemorrhage or suspicious mass effect. Chest CTA 01/01/25 19:43 IMPRESSION: No pulmonary embolus. No thoracic aortic dissection. Findings detected bilaterally suggesting pulmonary edema, with multifocal pneumonia less likely. Chest X-Ray 01/02/25 07:53 Impression: 1: Patchy bilateral airspace disease, compatible with pneumonia. Labs Labs: Laboratory Results - last 24 hr 01/01/25 01/01/25 01/01/25 14:16 15:56 16:18 WBC RBC Hgb Hct MCV MCH MCHC RDW Plt Count MPV Immature Gran % (Auto) Neut % (Auto) Lymph % (Auto) [place] % (Auto) Eos % (Auto) Baso % (Auto) Lymph # (Auto) [place] # (Auto) Eos # (Auto) Baso # (Auto) Abs Immat Gran (auto) Absolute Neuts (auto) Absolute Nucleated RBC Nucleated RBC % Puncture Site Left radial ABG pH 7.381 ABG pCO2 38.2 ABG pO2 66.6 L ABG PO2/FiO2 Ratio 0.95 ABG HCO3 22.1 ABG O2 Saturation 93.0 L ABG O2 Content 18.6 ABG Base Excess -2.6 A-a Gradient 391.4 Oxyhemoglobin 93.0 Total Hemoglobin 14.2 O2 Delivery Device Nasal cannula O2 Liters/Min 10.0 FiO2 70 Sodium Potassium Chloride Carbon Dioxide Anion Gap BUN Creatinine Estim Creat Clear Calc Estimated GFR Glucose Calcium Phosphorus Magnesium Total Bilirubin AST ALT Alkaline Phosphatase NT-Pro-B Natriuret Pep Total Protein Albumin Procalcitonin TSH (Reflex) Urine Color Urine Appearance Urine pH Ur Specific [place] Urine Protein Urine Glucose (UA) Urine Ketones Ur Blood (Man) Urine Nitrate Urine Bilirubin Urine Urobilinogen Leukocyte Esterase Rfl Urine RBC Urine WBC Ur Squamous Epith Cells Urine Bacteria Urine Casts Nasal MRSA (PCR) Not detected Influenza A (RT-PCR) Negative Influenza B (RT-PCR) Negative RSV (RT-PCR) Negative SARS-CoV-2 RNA (RT-PCR) Negative 01/01/25 01/01/25 01/02/25 17:02 20:59 03:59 WBC 17.0 H 16.5 H RBC 4.37 4.13 L Hgb 14.1 D 13.1 Hct 44.5 41.7 MCV 101.8 H 101.0 H MCH 32.3 31.7 MCHC 31.7 L 31.4 L RDW 12.7 13.0 Plt Count 222 236 MPV 9.7 10.2 Immature Gran % (Auto) 0.5 Neut % (Auto) 89.5 H Lymph % (Auto) 3.1 L [place] % (Auto) 6.7 Eos % (Auto) 0.0 Baso % (Auto) 0.2 Lymph # (Auto) 0.52 L [place] # (Auto) 1.1 H Eos # (Auto) 0.0 Baso # (Auto) 0.0 Abs Immat Gran (auto) 0.08 H Absolute Neuts (auto) 15.2 H Absolute Nucleated RBC 0.000 Nucleated RBC % 0.0 Puncture Site ABG pH ABG pCO2 ABG pO2 ABG PO2/FiO2 Ratio ABG HCO3 ABG O2 Saturation ABG O2 Content ABG Base Excess A-a Gradient Oxyhemoglobin Total Hemoglobin O2 Delivery Device O2 Liters/Min FiO2 Sodium 139 138 Potassium 4.2 4.4 Chloride 108 H 107 Carbon Dioxide 23 25 Anion Gap 8 6 BUN 18 H D 17 Creatinine 0.79 0.92 Estim Creat Clear Calc 49 42 Estimated GFR > 60 60 Glucose 149 H 112 H Calcium 8.9 8.8 Phosphorus 3.3 Magnesium 1.8 1.9 Total Bilirubin 0.5 0.7 AST 31 43 H ALT 23 24 Alkaline Phosphatase 89 84 NT-Pro-B Natriuret Pep 791 H Total Protein 7.0 7.0 Albumin 3.9 3.7 Procalcitonin 0.1 TSH (Reflex) 1.060 Urine Color Yellow Urine Appearance Clear Urine pH 5.5 Ur Specific [place] > 1.045 H Urine Protein Trace Urine Glucose (UA) Negative Urine Ketones 1+ H Ur Blood (Man) 2+ H Urine Nitrate Negative Urine Bilirubin Negative Urine Urobilinogen 0.2 Leukocyte Esterase Rfl Negative Urine RBC 6-10 H Urine WBC 0-5 Ur Squamous Epith Cells None seen Urine Bacteria None seen Urine Casts 0-2 Nasal MRSA (PCR) Influenza A (RT-PCR) Influenza B (RT-PCR) RSV (RT-PCR) SARS-CoV-2 RNA (RT-PCR)
--- NOTE | 2025-01-02 11:05 | IVDEFINITY ---
Prior to administration of IV Definity the patient was educated on the risks and benefits of the imaging enhancing agent including potential adverse side effects. The patient verbalized understanding. Allergies were verified. No exclusion criteria were identified and at least one of the following inclusion criteria were met: 1) physician request, 2) patient technically difficult to image (per the [place] [employer] guidelines of two or more segments not discernable within the apical view), or 3) questionable left ventricular function.
--- NOTE | 2025-01-02 14:00 | PM.IMPN ---
Progress Note: A&P Assessment and Plan (1) Hypoxia: Code(s): R09.02 - Hypoxemia Status: Acute (2) Incisional hernia: Qualifiers: Obstruction and gangrene presence: without obstruction or gangrene Qualified Code(s): K43.2 - Incisional hernia without obstruction or gangrene Code(s): K43.2 - Incisional hernia without obstruction or gangrene Status: Acute (3) Encounter for surgical aftercare following surgery on the digestive system: Code(s): Z48.815 - Encounter for surgical aftercare following surgery on the digestive system Status: Acute (4) JACOB (generalized anxiety disorder): Code(s): F41.1 - Generalized anxiety disorder Status: Acute (5) Depression: Code(s): F32.A - Depression, unspecified Status: Acute Plan patient is 74 y/o female has a elective incision incarcerated hernia, the surgery was uneventful however post surgery patient became hypoxic and requiring 8L of oxygen, patient is currently admitted in ICU for observation, patient stats now feels better however still requiring 8L oxygen, hypoxia possibly 2/2 aspiration pneumonia, PE, acute onset of CHF. to further evaluate CTA chest is ordered and will follow up, will monitor patient in the ICU and further recommendation to follow. CTA of chest was negative for PE showed detected bilaterally suggesting pulmonary edema, with multifocal pneumonia less likely. patient is being treated with Zosyn, patient is on RA and being transferred out of ICU to medical floor. Subjective Date/time seen: 01/02/25 14:00 Interval history: Hypoxia H&P-Narrative: patient is 74 y/o female has a elective incision incarcerated hernia, the surgery was uneventful however post surgery patient became hypoxic and requiring 8L of oxygen, patient is currently admitted in ICU for observation, patient stats now feels better however still requiring 8L oxygen, hypoxia possibly 2/2 aspiration pneumonia, PE, acute onset of CHF. to further evaluate CTA chest is ordered and will follow up, will monitor patient in the ICU and further recommendation to follow. CTA of chest was negative for PE showed detected bilaterally suggesting pulmonary edema, with multifocal pneumonia less likely. patient is being treated with Zosyn, patient is on RA and being transferred out of ICU to medical floor. Review of Systems Review of Systems: All systems reviewed & are unremarkable except as noted in HPI and below (HPI) Exam Narrative: Patient is comfortable, NAD HEENT: eyes are clear and none icteric LUNGS: Bilateral fair entry with rales and rhonchi HEART: RR S1S2 ABD: BS+, Soft and nontender Lower extremities: no edema SKIN: nonjaundiced Neuro: grossly intact. Objective Data Vital Signs Vital Signs: Vital Signs - 24 hr 01/01/25 14:14 01/01/25 14:30 01/01/25 15:13 Temperature Pulse Rate 90 93 Respiratory Rate 16 16 Blood Pressure 126/65 128/83 Pulse Oximetry 93 93 93 Oxygen Delivery High Flow Therapy with Na High Flow Therapy with Na High Flow Nasal Cannula Oxygen Flow Rate 10 10 8 01/01/25 15:15 01/01/25 16:00 01/01/25 16:00 Temperature 37.1 C Pulse Rate 93 96 92 Respiratory Rate 20 19 Blood Pressure 128/78 Pulse Oximetry 98 96 Oxygen Delivery High Flow Nasal Cannula Oxygen Flow Rate 6 01/01/25 16:13 01/01/25 17:12 01/01/25 18:00 Temperature Pulse Rate 92 92 Respiratory Rate 20 Blood Pressure 123/66 Pulse Oximetry 97 94 Oxygen Delivery High Flow Nasal Cannula Oxygen Flow Rate 8 01/01/25 18:00 01/01/25 20:00 01/01/25 20:00 Temperature Pulse Rate 92 94 95 Respiratory Rate 19 22 H Blood Pressure 152/108 H Pulse Oximetry 96 91 Oxygen Delivery High Flow Nasal Cannula Oxygen Flow Rate 6 01/01/25 20:00 01/01/25 21:15 01/01/25 21:26 Temperature 36.8 C Pulse Rate 94 87 91 Respiratory Rate 22 H 20 20 Blood Pressure 93/82 L Pulse Oximetry 91 Oxygen Delivery Oxygen Flow Rate 01/01/25 21:27 01/01/25 22:00 01/01/25 22:00 Temperature Pulse Rate 90 90 Respiratory Rate 21 H Blood Pressure 104/61 Pulse Oximetry 98 92 Oxygen Delivery High Flow Nasal Cannula Oxygen Flow Rate 8 01/02/25 00:00 01/02/25 00:00 01/02/25 00:00 Temperature 36.7 C Pulse Rate 86 86 86 Respiratory Rate 18 18 Blood Pressure 98/65 L Pulse Oximetry 92 92 Oxygen Delivery High Flow Nasal Cannula Oxygen Flow Rate 6 01/02/25 02:00 01/02/25 02:00 01/02/25 02:54 Temperature Pulse Rate 83 83 85 Respiratory Rate 17 20 Blood Pressure 107/72 Pulse Oximetry 93 Oxygen Delivery Oxygen Flow Rate 01/02/25 03:04 01/02/25 04:00 01/02/25 04:00 Temperature Pulse Rate 88 84 83 Respiratory Rate 20 20 Blood Pressure Pulse Oximetry 94 Oxygen Delivery High Flow Nasal Cannula Oxygen Flow Rate 6 01/02/25 04:00 01/02/25 06:00 01/02/25 06:00 Temperature 36.8 C Pulse Rate 84 84 84 Respiratory Rate 20 16 Blood Pressure 112/72 98/62 L Pulse Oximetry 94 95 Oxygen Delivery Oxygen Flow Rate 01/02/25 08:00 01/02/25 08:00 01/02/25 08:00 Temperature 36.7 C Pulse Rate 78 90 80 Respiratory Rate 20 23 H Blood Pressure 100/64 Pulse Oximetry 92 93 Oxygen Delivery Nasal Cannula Oxygen Flow Rate 2 01/02/25 08:28 01/02/25 08:35 01/02/25 08:43 Temperature Pulse Rate 89 85 Respiratory Rate 20 20 Blood Pressure Pulse Oximetry 93 Oxygen Delivery Nasal Cannula Oxygen Flow Rate 2 01/02/25 10:00 01/02/25 10:00 01/02/25 10:18 Temperature 36.8 C Pulse Rate 90 90 Respiratory Rate 23 H Blood Pressure 101/57 L Pulse Oximetry 93 Oxygen Delivery Oxygen Flow Rate 01/02/25 10:29 Temperature Pulse Rate 80 Respiratory Rate Blood Pressure Pulse Oximetry Oxygen Delivery Oxygen Flow Rate Intake/Output Intake/Output: Intake & Output 12/30/24 12/31/24 01/01/25 01/02/25 23:59 23:59 23:59 23:59 Intake Total 1300 577 Output Total 250 500 Balance 1050 77 Meds/Results Medications: Active Medications Generic Name Dose Route Start Last Admin Trade Name Freq PRN Reason Stop Dose Admin Acetaminophen 650 mg 01/01/25 17:42 01/02/25 13:27 Acetaminophen 325 Mg Tablet PO 650 mg Q4H PRN Administration Mild Pain (1-3) or Fever Hydrocodone Bitart/Acetaminophen 1 tab 01/01/25 17:42 Hydrocodone/Acetaminophen (*Crx) 10-325 Mg Tablet PO Q4H PRN Pain Rated 7-10 Hydrocodone Bitart/Acetaminophen 1 tab 01/01/25 17:42 01/01/25 19:02 Hydrocodone/Acetaminophen (*Crx) 5-325 Mg Tablet PO 1 tab Q4H PRN Administration Pain Rated 4-6 Albuterol/Ipratropium 3 ml 01/01/25 20:00 01/02/25 08:26 Ipratropium 0.5 Mg/Albuterol Sulfate 2.5 Mg Ampul.Neb 3 Ml INHALATION 3 ml Q6HRT ZORAIDA Administration Enoxaparin Sodium 40 mg 01/02/25 09:00 01/02/25 08:31 Enoxaparin 40 Mg/0.4 Ml Syringe SUB-Q 40 mg DAILY ZORAIDA Administration Piperacillin/Tazobactam/Dextrose 3.375 gm in 50 mls @ 100 mls/hr 01/01/25 17:35 01/02/25 13:05 Zosyn 3.375 Gm/Ns 50 Ml IVPB 100 mls/hr Q6HR ZORAIDA Administration Levothyroxine Sodium 75 mcg 01/02/25 06:30 01/02/25 06:02 Levothyroxine Sodium 75 Mcg Tablet PO 75 mcg DAILY@0630 ZORAIDA Administration Ondansetron HCl 4 mg 01/01/25 15:24 01/01/25 20:54 Ondansetron Inj 4 Mg/2 Ml Vial IV PUSH 4 mg Q6H PRN Administration Nausea And Vomiting Pantoprazole Sodium 40 mg 01/02/25 09:00 01/02/25 08:29 Pantoprazole Sodium Iv 40 Mg Vial IV PUSH 40 mg QAM ZORAIDA Administration Radiology Results: ITS Impressions Head CT 01/01/25 19:42 Impression: No acute intracranial hemorrhage or suspicious mass effect. Chest CTA 01/01/25 19:43 IMPRESSION: No pulmonary embolus. No thoracic aortic dissection. Findings detected bilaterally suggesting pulmonary edema, with multifocal pneumonia less likely. Chest X-Ray 01/02/25 07:53 Impression: 1: Patchy bilateral airspace disease, compatible with pneumonia. Labs Labs: Laboratory Results - last 24 hr 01/01/25 01/01/25 01/01/25 14:16 15:56 16:18 WBC RBC Hgb Hct MCV MCH MCHC RDW Plt Count MPV Immature Gran % (Auto) Neut % (Auto) Lymph % (Auto) [place] % (Auto) Eos % (Auto) Baso % (Auto) Lymph # (Auto) [place] # (Auto) Eos # (Auto) Baso # (Auto) Abs Immat Gran (auto) Absolute Neuts (auto) Absolute Nucleated RBC Nucleated RBC % Puncture Site Left radial ABG pH 7.381 ABG pCO2 38.2 ABG pO2 66.6 L ABG PO2/FiO2 Ratio 0.95 ABG HCO3 22.1 ABG O2 Saturation 93.0 L ABG O2 Content 18.6 ABG Base Excess -2.6 A-a Gradient 391.4 Oxyhemoglobin 93.0 Total Hemoglobin 14.2 O2 Delivery Device Nasal cannula O2 Liters/Min 10.0 FiO2 70 Sodium Potassium Chloride Carbon Dioxide Anion Gap BUN Creatinine Estim Creat Clear Calc Estimated GFR Glucose Calcium Phosphorus Magnesium Total Bilirubin AST ALT Alkaline Phosphatase NT-Pro-B Natriuret Pep Total Protein Albumin Procalcitonin TSH (Reflex) Urine Color Urine Appearance Urine pH Ur Specific [place] Urine Protein Urine Glucose (UA) Urine Ketones Ur Blood (Man) Urine Nitrate Urine Bilirubin Urine Urobilinogen Leukocyte Esterase Rfl Urine RBC Urine WBC Ur Squamous Epith Cells Urine Bacteria Urine Casts Nasal MRSA (PCR) Not detected Influenza A (RT-PCR) Negative Influenza B (RT-PCR) Negative RSV (RT-PCR) Negative SARS-CoV-2 RNA (RT-PCR) Negative 01/01/25 01/01/25 01/02/25 17:02 20:59 03:59 WBC 17.0 H 16.5 H RBC 4.37 4.13 L Hgb 14.1 D 13.1 Hct 44.5 41.7 MCV 101.8 H 101.0 H MCH 32.3 31.7 MCHC 31.7 L 31.4 L RDW 12.7 13.0 Plt Count 222 236 MPV 9.7 10.2 Immature Gran % (Auto) 0.5 Neut % (Auto) 89.5 H Lymph % (Auto) 3.1 L [place] % (Auto) 6.7 Eos % (Auto) 0.0 Baso % (Auto) 0.2 Lymph # (Auto) 0.52 L [place] # (Auto) 1.1 H Eos # (Auto) 0.0 Baso # (Auto) 0.0 Abs Immat Gran (auto) 0.08 H Absolute Neuts (auto) 15.2 H Absolute Nucleated RBC 0.000 Nucleated RBC % 0.0 Puncture Site ABG pH ABG pCO2 ABG pO2 ABG PO2/FiO2 Ratio ABG HCO3 ABG O2 Saturation ABG O2 Content ABG Base Excess A-a Gradient Oxyhemoglobin Total Hemoglobin O2 Delivery Device O2 Liters/Min FiO2 Sodium 139 138 Potassium 4.2 4.4 Chloride 108 H 107 Carbon Dioxide 23 25 Anion Gap 8 6 BUN 18 H D 17 Creatinine 0.79 0.92 Estim Creat Clear Calc 49 42 Estimated GFR > 60 60 Glucose 149 H 112 H Calcium 8.9 8.8 Phosphorus 3.3 Magnesium 1.8 1.9 Total Bilirubin 0.5 0.7 AST 31 43 H ALT 23 24 Alkaline Phosphatase 89 84 NT-Pro-B Natriuret Pep 791 H Total Protein 7.0 7.0 Albumin 3.9 3.7 Procalcitonin 0.1 TSH (Reflex) 1.060 Urine Color Yellow Urine Appearance Clear Urine pH 5.5 Ur Specific [place] > 1.045 H Urine Protein Trace Urine Glucose (UA) Negative Urine Ketones 1+ H Ur Blood (Man) 2+ H Urine Nitrate Negative Urine Bilirubin Negative Urine Urobilinogen 0.2 Leukocyte Esterase Rfl Negative Urine RBC 6-10 H Urine WBC 0-5 Ur Squamous Epith Cells None seen Urine Bacteria None seen Urine Casts 0-2 Nasal MRSA (PCR) Influenza A (RT-PCR) Influenza B (RT-PCR) RSV (RT-PCR) SARS-CoV-2 RNA (RT-PCR) Quality VTE Prophylaxis VTE prophylaxis: pharmacologic ordered
--- NOTE | 2025-01-02 14:48 | PC.NURSE ---
This patient, Cuca More, was received from IMU on 01/02/25 at 1448. Patient/family oriented to unit policies and routines
[2025-01-02] MEDS: ONDANSETRON INJ 4 MG/2 ML VIAL IV PUSH (18:34)
[2025-01-03] VITALS (17 sets, daily range): BP systolic 110–126; BP diastolic 55–59; PULSE 79–96; RESP 12–22; TEMP 36.5–36.8; O2SAT 95–97
[2025-01-03] MEDS: IPRATROPIUM 0.5 MG/ALBUTEROL SULFATE 2.5 MG AMPUL.NEB 3 ML INHALATION ×4 (02:45→20:36)
[2025-01-03] MEDS: ACETAMINOPHEN 325 MG TABLET 650 MG PO ×3 (03:24→20:44)
[2025-01-03 05:22] LABS: Hematocrit 35.3 % (37.0-47.0); Hemoglobin 11.1 g/dL (12.0-15.0); Mean Corpuscular HGB Conc 31.4 g/dl (32-36); Mean Corpuscular Hemoglobin 31.9 pg (26-34); Mean Corpuscular Volume 101.4 fl (80-100); Platelet Count Result 185 k/mm3 (150-375); Red Blood Count 3.48 M/mm3 (4.2-5.4); Red Cell Distribution Width 13.4 % (11.5-14.5); White Blood Count 8.1 K/mm3 (4.5-10.0)
[2025-01-03 05:35] LABS: Alanine Aminotransferase 33 U/L (6-35); Albumin Level 3.2 g/dL (3.5-5.1); Alkaline Phosphatase 82 U/L (38-126); Anion Gap 5 mmol/L (4-12); Aspartate Amino Transferase 55 U/L (14-36); Bilirubin,Total 0.5 mg/dL (0.2-1.3); Blood Urea Nitrogen 13 mg/dL (7-17); Calcium 8.7 mg/dL (8.4-10.2); Carbon Dioxide 27 mmol/L (22-30); Chloride 109 mmol/L (98-107); Estimated CRCL calculation 46 ml/min; Estimated Glomerular Filt Rate > 60; Glucose 108 mg/dL (65-110); Potassium 3.7 mmol/L (3.4-5.0); Sodium 141 mmol/L (137-145)
[2025-01-03] MEDS: LEVOTHYROXINE SODIUM 75 MCG TABLET PO (05:35)
[2025-01-03] MEDS: PIPERACILLN/TAZ 3.375GM/NS50ML 3.375 GM/50 ML BAG IVPB ×3 (05:36→17:09)
[2025-01-03] MEDS: PANTOPRAZOLE SODIUM IV 40 MG VIAL IV PUSH (09:13)
[2025-01-03] MEDS: ENOXAPARIN 40 MG/0.4 ML SYRINGE SUB-Q (09:13)
[2025-01-03] MEDS: CYCLOBENZAPRINE HCL 10 MG TABLET PO (11:11)
--- NOTE | 2025-01-03 12:01 | P.PNGS_ITS ---
Progress Note: A&P Assessment and Plan (1) Incisional hernia: Qualifiers: Obstruction and gangrene presence: without obstruction or gangrene Qualified Code(s): K43.2 - Incisional hernia without obstruction or gangrene Code(s): K43.2 - Incisional hernia without obstruction or gangrene Status: Acute Assessment and Plan: doing well, cont routine postop care, encourage OOB/IS, binder, ok to dc from surgical standpoint when medically appropriate (2) Hypoxia: Code(s): R09.02 - Hypoxemia Status: Acute Assessment and Plan: improved, cont mgmt per medical team Subjective Subjective Date/Time Seen: 01/03/25 12:01 Interval history: feels much better, on minimal supplemental oxygen Review of Systems Review of Systems: All systems reviewed & are unremarkable except as noted in HPI and below Exam Const: General: cooperative, comfortable and no acute distress Resp: Auscultation: diminished lung sounds Cardio: Rate: regular rate Rhythm: regular rhythm GI: Inspection: normal to inspection, non-distended and incision GI Palp: Yes abdominal tenderness and Yes Soft to palpation Objective Data Vital Signs Vital Signs: Vital Signs - 24 hr 01/02/25 14:19 01/02/25 14:27 01/02/25 15:19 Temperature Pulse Rate 85 86 Respiratory Rate 19 20 Blood Pressure Pulse Oximetry Oxygen Delivery Nasal Cannula Oxygen Flow Rate 2 01/02/25 16:00 01/02/25 20:00 01/02/25 20:06 Temperature Pulse Rate 79 89 Respiratory Rate Blood Pressure Pulse Oximetry 95 Oxygen Delivery High Flow Therapy with Na Oxygen Flow Rate 2 01/02/25 20:21 01/02/25 20:43 01/02/25 20:43 Temperature 36.8 C Pulse Rate 91 91 91 Respiratory Rate 16 20 20 Blood Pressure 119/63 Pulse Oximetry 94 95 Oxygen Delivery Nasal Cannula Oxygen Flow Rate 2 01/02/25 23:50 01/03/25 00:00 01/03/25 02:45 Temperature Pulse Rate 86 86 Respiratory Rate 22 H Blood Pressure Pulse Oximetry 92 96 Oxygen Delivery High Flow Therapy with Na Nasal Cannula Oxygen Flow Rate 3 2 01/03/25 02:45 01/03/25 03:00 01/03/25 04:00 Temperature Pulse Rate 86 84 87 Respiratory Rate 22 H 20 Blood Pressure Pulse Oximetry Oxygen Delivery Oxygen Flow Rate 01/03/25 05:46 01/03/25 07:49 01/03/25 08:18 Temperature 36.5 C Pulse Rate 84 Respiratory Rate 16 Blood Pressure 115/55 L Pulse Oximetry 96 97 Oxygen Delivery Nasal Cannula Nasal Cannula Oxygen Flow Rate 3 3 01/03/25 08:18 01/03/25 08:24 Temperature Pulse Rate 80 81 Respiratory Rate 16 16 Blood Pressure Pulse Oximetry Oxygen Delivery Oxygen Flow Rate Intake/Output Intake/Output: Intake & Output 12/31/24 01/01/25 01/02/25 01/03/25 23:59 23:59 23:59 23:59 Intake Total 1300 797 620 Output Total 250 500 Balance 1050 297 620 Meds/Results Medications: Active Medications Generic Name Dose Route Start Last Admin Trade Name Freq PRN Reason Stop Dose Admin Acetaminophen 650 mg 01/01/25 17:42 01/03/25 11:10 Acetaminophen 325 Mg Tablet PO 650 mg Q4H PRN Administration Mild Pain (1-3) or Fever Hydrocodone Bitart/Acetaminophen 1 tab 01/01/25 17:42 Hydrocodone/Acetaminophen (*Crx) 10-325 Mg Tablet PO Q4H PRN Pain Rated 7-10 Hydrocodone Bitart/Acetaminophen 1 tab 01/01/25 17:42 01/01/25 19:02 Hydrocodone/Acetaminophen (*Crx) 5-325 Mg Tablet PO 1 tab Q4H PRN Administration Pain Rated 4-6 Albuterol/Ipratropium 3 ml 01/01/25 20:00 01/03/25 08:18 Ipratropium 0.5 Mg/Albuterol Sulfate 2.5 Mg Ampul.Neb 3 Ml INHALATION 3 ml Q6HRT [facility] Administration Atorvastatin Calcium 10 mg 01/03/25 10:45 Atorvastatin 10 Mg Tablet PO DAILY [facility] Bupropion HCl 150 mg 01/03/25 10:45 Bupropion Hcl Xl (24 Hr) 150 Mg Tabcr PO DAILY [facility] Buspirone HCl 5 mg 01/03/25 10:45 Buspirone Hcl 5 Mg Tablet PO BID [facility] Cyclobenzaprine HCl 10 mg 01/03/25 10:20 01/03/25 11:11 Cyclobenzaprine Hcl 10 Mg Tablet PO 10 mg TID PRN Administration Leg cramps Donepezil HCl 5 mg 01/03/25 21:00 Donepezil Hcl 5 Mg Tablet PO QHS [facility] Enoxaparin Sodium 40 mg 01/02/25 09:00 01/03/25 09:13 Enoxaparin 40 Mg/0.4 Ml Syringe SUB-Q 40 mg DAILY [facility] Administration Escitalopram Oxalate 20 mg 01/03/25 10:45 Escitalopram Oxalate 10 Mg Tablet PO DAILY [facility] Piperacillin/Tazobactam/Dextrose 3.375 gm in 50 mls @ 100 mls/hr 01/01/25 17:35 01/03/25 06:06 Zosyn 3.375 Gm/Ns 50 Ml IVPB Infused Q6HR [facility] Infusion Lactobacillus Acidophilus 3,000 tablet 01/03/25 10:50 Acidophilus/Bulgaricus Chewable Tablet PO 02/03/25 10:49 DAILY [facility] Levothyroxine Sodium 75 mcg 01/04/25 06:30 Levothyroxine Sodium 75 Mcg Tablet PO DAILY@0630 [facility] Melatonin 3 mg 01/03/25 21:00 Melatonin 3 Mg Tablet PO QHS [facility] Multivitamins/Calcium 1 tablet 01/03/25 10:45 Therapeutic Multivitamins/Minerals Tab (*Bkc) PO DAILY [facility] Non-Formulary Medication 1 each 01/03/25 10:44 Nonformulary Nutritional Supplement XX 01/04/25 10:43 PRN PRN PROTOCOL Non-Formulary Medication 1 each 01/03/25 10:45 Nonformulary Nutritional Supplement XX 01/04/25 10:44 PRN PRN PROTOCOL Ondansetron HCl 4 mg 01/01/25 15:24 01/02/25 18:34 Ondansetron Inj 4 Mg/2 Ml Vial IV PUSH 4 mg Q6H PRN Administration Nausea And Vomiting Pantoprazole Sodium 40 mg 01/02/25 09:00 01/03/25 09:13 Pantoprazole Sodium Iv 40 Mg Vial IV PUSH 40 mg QAM [facility] Administration Vitamin D 2,000 units 01/03/25 10:45 Cholecalciferol 1,000 Units Tablet PO DAILY [facility] Radiology Results: ITS Impressions Head CT 01/01/25 19:42 Impression: No acute intracranial hemorrhage or suspicious mass effect. Chest CTA 01/01/25 19:43 IMPRESSION: No pulmonary embolus. No thoracic aortic dissection. Findings detected bilaterally suggesting pulmonary edema, with multifocal pneumonia less likely. Chest X-Ray 01/02/25 07:53 Impression: 1: Patchy bilateral airspace disease, compatible with pneumonia. Labs Labs: Laboratory Results - last 24 hr 01/03/25 04:59 WBC 8.1 RBC 3.48 L Hgb 11.1 L Hct 35.3 L MCV 101.4 H MCH 31.9 MCHC 31.4 L RDW 13.4 Plt Count 185 MPV 10.0 Sodium 141 Potassium 3.7 Chloride 109 H Carbon Dioxide 27 Anion Gap 5 BUN 13 Creatinine 0.86 Estim Creat Clear Calc 46 Estimated GFR > 60 Glucose 108 Calcium 8.7 Magnesium 2.0 Total Bilirubin 0.5 AST 55 H ALT 33 Alkaline Phosphatase 82 Total Protein 6.0 L Albumin 3.2 L
[2025-01-03] MEDS: CHOLECALCIFEROL 1,000 UNITS TABLET 2000 UNITS PO (12:39)
[2025-01-03] MEDS: ESCITALOPRAM OXALATE 10 MG TABLET 20 MG PO (12:39)
[2025-01-03] MEDS: THERAPEUTIC MULTIVITAMINS/MINERALS TAB (*BKC) 1 TABLET PO (12:40)
[2025-01-03] MEDS: buPROPion HCL XL (24 HR) 150 MG TABCR PO (12:40)
[2025-01-03] MEDS: busPIRone HCL 5 MG TABLET PO ×2 (12:40→17:09)
[2025-01-03] MEDS: ATORVASTATIN 10 MG TABLET PO (12:40)
--- NOTE | 2025-01-03 14:37 | PM.IMPN ---
Progress Note: A&P Assessment and Plan (1) Hypoxia: Code(s): R09.02 - Hypoxemia Status: Acute (2) Incisional hernia: Qualifiers: Obstruction and gangrene presence: without obstruction or gangrene Qualified Code(s): K43.2 - Incisional hernia without obstruction or gangrene Code(s): K43.2 - Incisional hernia without obstruction or gangrene Status: Acute (3) Encounter for surgical aftercare following surgery on the digestive system: Code(s): Z48.815 - Encounter for surgical aftercare following surgery on the digestive system Status: Acute (4) JACOB (generalized anxiety disorder): Code(s): F41.1 - Generalized anxiety disorder Status: Acute (5) Depression: Code(s): F32.A - Depression, unspecified Status: Acute Plan patient is 74 y/o female has a elective incision incarcerated hernia, the surgery was uneventful however post surgery patient became hypoxic and requiring 8L of oxygen, patient is currently admitted in ICU for observation, patient stats now feels better however still requiring 8L oxygen, hypoxia possibly 2/2 aspiration pneumonia, PE, acute onset of CHF. to further evaluate CTA chest is ordered and will follow up, will monitor patient in the ICU and further recommendation to follow. CTA of chest was negative for PE showed detected bilaterally suggesting pulmonary edema, with multifocal pneumonia less likely. Chest x-ray shows patchy infiltrate, patient is being treated with Zosyn, patient is on RA and being transferred out of ICU to medical floor. Remains clinically stable repeat x-ray and further recommendation to follow. Subjective Date/time seen: 01/03/25 14:37 Interval history: Hypoxia H&P-Narrative: patient is 74 y/o female has a elective incision incarcerated hernia, the surgery was uneventful however post surgery patient became hypoxic and requiring 8L of oxygen, patient is currently admitted in ICU for observation, patient stats now feels better however still requiring 8L oxygen, hypoxia possibly 2/2 aspiration pneumonia, PE, acute onset of CHF. to further evaluate CTA chest is ordered and will follow up, will monitor patient in the ICU and further recommendation to follow. CTA of chest was negative for PE showed detected bilaterally suggesting pulmonary edema, with multifocal pneumonia less likely. Chest x-ray shows patchy infiltrate, patient is being treated with Zosyn, patient is on RA and being transferred out of ICU to medical floor. Remains clinically stable repeat x-ray and further recommendation to follow. Review of Systems Review of Systems: All systems reviewed & are unremarkable except as noted in HPI and below (HPI) Exam Narrative: Patient is comfortable, NAD HEENT: eyes are clear and none icteric LUNGS: Bilateral fair entry with rales and rhonchi HEART: RR S1S2 ABD: BS+, Soft and nontender Lower extremities: no edema SKIN: nonjaundiced Neuro: grossly intact. Objective Data Vital Signs Vital Signs: Vital Signs - 24 hr 01/02/25 15:19 01/02/25 16:00 01/02/25 20:00 Temperature Pulse Rate 79 89 Respiratory Rate Blood Pressure Pulse Oximetry Oxygen Delivery Nasal Cannula Oxygen Flow Rate 2 01/02/25 20:06 01/02/25 20:21 01/02/25 20:43 Temperature 36.8 C Pulse Rate 91 91 Respiratory Rate 16 20 Blood Pressure 119/63 Pulse Oximetry 95 94 95 Oxygen Delivery High Flow Therapy with Na Nasal Cannula Oxygen Flow Rate 2 2 01/02/25 20:43 01/02/25 23:50 01/03/25 00:00 Temperature Pulse Rate 91 86 Respiratory Rate 20 Blood Pressure Pulse Oximetry 92 Oxygen Delivery High Flow Therapy with Na Oxygen Flow Rate 3 01/03/25 02:45 01/03/25 02:45 01/03/25 03:00 Temperature Pulse Rate 86 86 84 Respiratory Rate 22 H 22 H 20 Blood Pressure Pulse Oximetry 96 Oxygen Delivery Nasal Cannula Oxygen Flow Rate 2 01/03/25 04:00 01/03/25 05:46 01/03/25 07:49 Temperature 36.5 C Pulse Rate 87 84 Respiratory Rate 16 Blood Pressure 115/55 L Pulse Oximetry 96 Oxygen Delivery Nasal Cannula Oxygen Flow Rate 3 01/03/25 08:18 01/03/25 08:18 01/03/25 08:24 Temperature Pulse Rate 80 81 Respiratory Rate 16 16 Blood Pressure Pulse Oximetry 97 Oxygen Delivery Nasal Cannula Oxygen Flow Rate 3 Intake/Output Intake/Output: Intake & Output 12/31/24 01/01/25 01/02/25 01/03/25 23:59 23:59 23:59 23:59 Intake Total 1300 797 620 Output Total 250 500 Balance 1050 297 620 Meds/Results Medications: Active Medications Generic Name Dose Route Start Last Admin Trade Name Freq PRN Reason Stop Dose Admin Acetaminophen 650 mg 01/01/25 17:42 01/03/25 11:10 Acetaminophen 325 Mg Tablet PO 650 mg Q4H PRN Administration Mild Pain (1-3) or Fever Hydrocodone Bitart/Acetaminophen 1 tab 01/01/25 17:42 Hydrocodone/Acetaminophen (*Crx) 10-325 Mg Tablet PO Q4H PRN Pain Rated 7-10 Hydrocodone Bitart/Acetaminophen 1 tab 01/01/25 17:42 01/01/25 19:02 Hydrocodone/Acetaminophen (*Crx) 5-325 Mg Tablet PO 1 tab Q4H PRN Administration Pain Rated 4-6 Albuterol/Ipratropium 3 ml 01/01/25 20:00 01/03/25 14:35 Ipratropium 0.5 Mg/Albuterol Sulfate 2.5 Mg Ampul.Neb 3 Ml INHALATION 3 ml Q6HRT [facility] Administration Atorvastatin Calcium 10 mg 01/03/25 10:45 01/03/25 12:40 Atorvastatin 10 Mg Tablet PO 10 mg DAILY [facility] Administration Bupropion HCl 150 mg 01/03/25 10:45 01/03/25 12:40 Bupropion Hcl Xl (24 Hr) 150 Mg Tabcr PO 150 mg DAILY [facility] Administration Buspirone HCl 5 mg 01/03/25 10:45 01/03/25 12:40 Buspirone Hcl 5 Mg Tablet PO 5 mg BID [facility] Administration Cyclobenzaprine HCl 10 mg 01/03/25 10:20 01/03/25 11:11 Cyclobenzaprine Hcl 10 Mg Tablet PO 10 mg TID PRN Administration Leg cramps Donepezil HCl 5 mg 01/03/25 21:00 Donepezil Hcl 5 Mg Tablet PO QHS [facility] Enoxaparin Sodium 40 mg 01/02/25 09:00 01/03/25 09:13 Enoxaparin 40 Mg/0.4 Ml Syringe SUB-Q 40 mg DAILY [facility] Administration Escitalopram Oxalate 20 mg 01/03/25 10:45 01/03/25 12:39 Escitalopram Oxalate 10 Mg Tablet PO 20 mg DAILY [facility] Administration Piperacillin/Tazobactam/Dextrose 3.375 gm in 50 mls @ 100 mls/hr 01/01/25 17:35 01/03/25 12:40 Zosyn 3.375 Gm/Ns 50 Ml IVPB 100 mls/hr Q6HR [facility] Administration Lactobacillus Acidophilus 3,000 tablet 01/03/25 10:50 Acidophilus/Bulgaricus Chewable Tablet PO 02/03/25 10:49 DAILY [facility] Levothyroxine Sodium 75 mcg 01/04/25 06:30 Levothyroxine Sodium 75 Mcg Tablet PO DAILY@0630 [facility] Melatonin 3 mg 01/03/25 21:00 Melatonin 3 Mg Tablet PO QHS [facility] Multivitamins/Calcium 1 tablet 01/03/25 10:45 01/03/25 12:40 Therapeutic Multivitamins/Minerals Tab (*Bkc) PO 1 tablet DAILY [facility] Administration Non-Formulary Medication 1 each 01/03/25 10:44 Nonformulary Nutritional Supplement XX 01/04/25 10:43 PRN PRN PROTOCOL Non-Formulary Medication 1 each 01/03/25 10:45 Nonformulary Nutritional Supplement XX 01/04/25 10:44 PRN PRN PROTOCOL Ondansetron HCl 4 mg 01/01/25 15:24 01/02/25 18:34 Ondansetron Inj 4 Mg/2 Ml Vial IV PUSH 4 mg Q6H PRN Administration Nausea And Vomiting Pantoprazole Sodium 40 mg 01/02/25 09:00 01/03/25 09:13 Pantoprazole Sodium Iv 40 Mg Vial IV PUSH 40 mg QAM [facility] Administration Vitamin D 2,000 units 01/03/25 10:45 01/03/25 12:39 Cholecalciferol 1,000 Units Tablet PO 2,000 units DAILY [facility] Administration Radiology Results: ITS Impressions Head CT 01/01/25 19:42 Impression: No acute intracranial hemorrhage or suspicious mass effect. Chest CTA 01/01/25 19:43 IMPRESSION: No pulmonary embolus. No thoracic aortic dissection. Findings detected bilaterally suggesting pulmonary edema, with multifocal pneumonia less likely. Chest X-Ray 01/02/25 07:53 Impression: 1: Patchy bilateral airspace disease, compatible with pneumonia. Labs Labs: Laboratory Results - last 24 hr 01/03/25 04:59 WBC 8.1 RBC 3.48 L Hgb 11.1 L Hct 35.3 L MCV 101.4 H MCH 31.9 MCHC 31.4 L RDW 13.4 Plt Count 185 MPV 10.0 Sodium 141 Potassium 3.7 Chloride 109 H Carbon Dioxide 27 Anion Gap 5 BUN 13 Creatinine 0.86 Estim Creat Clear Calc 46 Estimated GFR > 60 Glucose 108 Calcium 8.7 Magnesium 2.0 Total Bilirubin 0.5 AST 55 H ALT 33 Alkaline Phosphatase 82 Total Protein 6.0 L Albumin 3.2 L Quality VTE Prophylaxis VTE prophylaxis: pharmacologic ordered
[2025-01-03] MEDS: ACIDOPHILUS/BULGARICUS CHEWABLE TABLET 1 TABLET PO (17:09)
[2025-01-03] MEDS: DONEPEZIL HCL 5 MG TABLET PO (20:44)
[2025-01-03] MEDS: MELATONIN 3 MG TABLET PO (20:44)
[2025-01-04] VITALS (16 sets, daily range): BP systolic 112–123; BP diastolic 50–54; PULSE 78–94; RESP 16–18; TEMP 36.5–36.6; O2SAT 91–99
[2025-01-04] MEDS: PIPERACILLN/TAZ 3.375GM/NS50ML 3.375 GM/50 ML BAG IVPB ×4 (00:58→17:46)
[2025-01-04 05:16] LABS: Hematocrit 34.4 % (37.0-47.0); Hemoglobin 10.4 g/dL (12.0-15.0); Mean Corpuscular HGB Conc 30.2 g/dl (32-36); Mean Corpuscular Volume 105.8 fl (80-100); Mean Platelet Volume 9.9 fl (7.4-10.4); Platelet Count Result 182 k/mm3 (150-375); Red Blood Count 3.25 M/mm3 (4.2-5.4); Red Cell Distribution Width 13.3 % (11.5-14.5); White Blood Count 6.6 K/mm3 (4.5-10.0)
[2025-01-04 05:22] LABS: Alanine Aminotransferase 32 U/L (6-35); Albumin Level 3.1 g/dL (3.5-5.1); Alkaline Phosphatase 88 U/L (38-126); Anion Gap 3 mmol/L (4-12); Aspartate Amino Transferase 40 U/L (14-36); Bilirubin,Total 0.4 mg/dL (0.2-1.3); Blood Urea Nitrogen 13 mg/dL (7-17); Calcium 8.9 mg/dL (8.4-10.2); Carbon Dioxide 32 mmol/L (22-30); Chloride 108 mmol/L (98-107); Estimated CRCL calculation 49 ml/min; Estimated Glomerular Filt Rate > 60; Glucose 92 mg/dL (65-110); Magnesium 2.1 mg/dL (1.6-2.3); Potassium 3.8 mmol/L (3.4-5.0); Sodium 143 mmol/L (137-145)
[2025-01-04] MEDS: LEVOTHYROXINE SODIUM 75 MCG TABLET PO (06:11)
[2025-01-04] MEDS: ACETAMINOPHEN 325 MG TABLET 650 MG PO ×3 (06:49→21:43)
[2025-01-04] MEDS: IPRATROPIUM 0.5 MG/ALBUTEROL SULFATE 2.5 MG AMPUL.NEB 3 ML INHALATION ×3 (08:03→20:35)
[2025-01-04] MEDS: CHOLECALCIFEROL 1,000 UNITS TABLET 2000 UNITS PO (09:18)
[2025-01-04] MEDS: ATORVASTATIN 10 MG TABLET PO (09:18)
[2025-01-04] MEDS: PANTOPRAZOLE SODIUM IV 40 MG VIAL IV PUSH (09:18)
[2025-01-04] MEDS: ENOXAPARIN 40 MG/0.4 ML SYRINGE SUB-Q (09:18)
[2025-01-04] MEDS: THERAPEUTIC MULTIVITAMINS/MINERALS TAB (*BKC) 1 TABLET PO (09:18)
[2025-01-04] MEDS: ACIDOPHILUS/BULGARICUS CHEWABLE TABLET 1 TABLET PO (09:18)
[2025-01-04] MEDS: buPROPion HCL XL (24 HR) 150 MG TABCR PO (09:18)
[2025-01-04] MEDS: busPIRone HCL 5 MG TABLET PO ×2 (09:18→17:46)
[2025-01-04] MEDS: ESCITALOPRAM OXALATE 10 MG TABLET 20 MG PO (09:19)
--- NOTE | 2025-01-04 10:08 | PM.PNGS ---
Progress Note: A&P Assessment and Plan (1) Incisional hernia: Qualifiers: Obstruction and gangrene presence: without obstruction or gangrene Qualified Code(s): K43.2 - Incisional hernia without obstruction or gangrene Code(s): K43.2 - Incisional hernia without obstruction or gangrene Status: Acute Assessment and Plan: doing well, routine postop care, home when medically stable (2) Hypoxia: Code(s): R09.02 - Hypoxemia Status: Acute Assessment and Plan: only on 1L, wean as roselyn, home once medically stable Subjective Subjective Date/Time Seen: 01/04/25 10:08 Interval history: feels good, no c/o Review of Systems Review of Systems: All systems reviewed & are unremarkable except as noted in HPI and below Exam Const: General: cooperative, comfortable and no acute distress Resp: Auscultation: diminished lung sounds Cardio: Rate: regular rate Rhythm: regular rhythm GI: Inspection: normal to inspection and incision GI Palp: Yes abdominal tenderness and Yes Soft to palpation Objective Data Vital Signs Vital Signs: Vital Signs - 24 hr 01/03/25 12:00 01/03/25 14:35 01/03/25 14:35 Temperature 36.8 C Pulse Rate 84 83 83 Respiratory Rate 12 18 Blood Pressure 126/57 L Pulse Oximetry 97 Oxygen Delivery Oxygen Flow Rate 01/03/25 14:42 01/03/25 16:00 01/03/25 20:00 Temperature Pulse Rate 79 93 Respiratory Rate 12 Blood Pressure Pulse Oximetry 96 Oxygen Delivery Nasal Cannula Oxygen Flow Rate 3 01/03/25 20:00 01/03/25 20:37 01/03/25 20:43 Temperature Pulse Rate 85 91 91 Respiratory Rate 16 Blood Pressure Pulse Oximetry 95 Oxygen Delivery Nasal Cannula Oxygen Flow Rate 3 01/03/25 20:47 01/03/25 21:40 01/04/25 00:00 Temperature 36.5 C Pulse Rate 88 96 85 Respiratory Rate 16 16 Blood Pressure 110/59 L Pulse Oximetry 96 Oxygen Delivery Oxygen Flow Rate 01/04/25 04:00 01/04/25 06:44 01/04/25 08:04 Temperature 36.5 C Pulse Rate 78 87 Respiratory Rate 16 Blood Pressure 123/53 L Pulse Oximetry 93 99 Oxygen Delivery Nasal Cannula Oxygen Flow Rate 3 01/04/25 08:04 01/04/25 08:18 01/04/25 08:46 Temperature Pulse Rate 80 86 Respiratory Rate 16 16 Blood Pressure Pulse Oximetry 91 Oxygen Delivery Nasal Cannula Oxygen Flow Rate 1 Intake/Output Intake/Output: Intake & Output 01/01/25 01/02/25 01/03/25 01/04/25 23:59 23:59 23:59 23:59 Intake Total 6897 712 4981 500 Output Total 250 500 Balance 1703 369 8069 500 Meds/Results Medications: Active Medications Generic Name Dose Route Start Last Admin Trade Name Freq PRN Reason Stop Dose Admin Acetaminophen 650 mg 01/01/25 17:42 01/04/25 06:49 Acetaminophen 325 Mg Tablet PO 650 mg Q4H PRN Administration Mild Pain (1-3) or Fever Hydrocodone Bitart/Acetaminophen 1 tab 01/01/25 17:42 Hydrocodone/Acetaminophen (*Crx) 10-325 Mg Tablet PO Q4H PRN Pain Rated 7-10 Hydrocodone Bitart/Acetaminophen 1 tab 01/01/25 17:42 01/01/25 19:02 Hydrocodone/Acetaminophen (*Crx) 5-325 Mg Tablet PO 1 tab Q4H PRN Administration Pain Rated 4-6 Albuterol/Ipratropium 3 ml 01/01/25 20:00 01/04/25 08:03 Ipratropium 0.5 Mg/Albuterol Sulfate 2.5 Mg Ampul.Neb 3 Ml INHALATION 3 ml Q6HRT [facility] Administration Atorvastatin Calcium 10 mg 01/03/25 10:45 01/04/25 09:18 Atorvastatin 10 Mg Tablet PO 10 mg DAILY [facility] Administration Bupropion HCl 150 mg 01/03/25 10:45 01/04/25 09:18 Bupropion Hcl Xl (24 Hr) 150 Mg Tabcr PO 150 mg DAILY [facility] Administration Buspirone HCl 5 mg 01/03/25 10:45 01/04/25 09:18 Buspirone Hcl 5 Mg Tablet PO 5 mg BID [facility] Administration Cyclobenzaprine HCl 10 mg 01/03/25 10:20 01/03/25 11:11 Cyclobenzaprine Hcl 10 Mg Tablet PO 10 mg TID PRN Administration Leg cramps Donepezil HCl 5 mg 01/03/25 21:00 01/03/25 20:44 Donepezil Hcl 5 Mg Tablet PO 5 mg QHS [facility] Administration Enoxaparin Sodium 40 mg 01/02/25 09:00 01/04/25 09:18 Enoxaparin 40 Mg/0.4 Ml Syringe SUB-Q 40 mg DAILY [facility] Administration Escitalopram Oxalate 20 mg 01/03/25 10:45 01/04/25 09:19 Escitalopram Oxalate 10 Mg Tablet PO 20 mg DAILY [facility] Administration Piperacillin/Tazobactam/Dextrose 3.375 gm in 50 mls @ 100 mls/hr 01/01/25 17:35 01/04/25 06:31 Zosyn 3.375 Gm/Ns 50 Ml IVPB Infused Q6HR [facility] Infusion Lactobacillus Acidophilus 1 tablet 01/03/25 17:00 01/04/25 09:18 Acidophilus/Bulgaricus Chewable Tablet PO 1 tablet DAILY [facility] Administration Levothyroxine Sodium 75 mcg 01/04/25 06:30 01/04/25 06:11 Levothyroxine Sodium 75 Mcg Tablet PO 75 mcg DAILY@0630 [facility] Administration Melatonin 3 mg 01/03/25 21:00 01/03/25 20:44 Melatonin 3 Mg Tablet PO 3 mg QHS [facility] Administration Multivitamins/Calcium 1 tablet 01/03/25 10:45 01/04/25 09:18 Therapeutic Multivitamins/Minerals Tab (*Bkc) PO 1 tablet DAILY [facility] Administration Non-Formulary Medication 1 each 01/03/25 10:44 Nonformulary Nutritional Supplement XX 01/04/25 10:43 PRN PRN PROTOCOL Non-Formulary Medication 1 each 01/03/25 10:45 Nonformulary Nutritional Supplement XX 01/04/25 10:44 PRN PRN PROTOCOL Ondansetron HCl 4 mg 01/01/25 15:24 01/02/25 18:34 Ondansetron Inj 4 Mg/2 Ml Vial IV PUSH 4 mg Q6H PRN Administration Nausea And Vomiting Pantoprazole Sodium 40 mg 01/02/25 09:00 01/04/25 09:18 Pantoprazole Sodium Iv 40 Mg Vial IV PUSH 40 mg QAM [facility] Administration Vitamin D 2,000 units 01/03/25 10:45 01/04/25 09:18 Cholecalciferol 1,000 Units Tablet PO 2,000 units DAILY [facility] Administration Radiology Results: ITS Impressions Head CT 01/01/25 19:42 Impression: No acute intracranial hemorrhage or suspicious mass effect. Chest CTA 01/01/25 19:43 IMPRESSION: No pulmonary embolus. No thoracic aortic dissection. Findings detected bilaterally suggesting pulmonary edema, with multifocal pneumonia less likely. Chest X-Ray 01/04/25 09:45 Impression: 1: Bibasilar airspace disease with improvement compared with 01/02/2025. Differential diagnosis includes residual edema, pneumonia or atelectasis. Labs Labs: Laboratory Results - last 24 hr 01/04/25 04:45 WBC 6.6 RBC 3.25 L Hgb 10.4 L Hct 34.4 L MCV 105.8 H MCH 32.0 MCHC 30.2 L RDW 13.3 Plt Count 182 MPV 9.9 Sodium 143 Potassium 3.8 Chloride 108 H Carbon Dioxide 32 H Anion Gap 3 L BUN 13 Creatinine 0.82 Estim Creat Clear Calc 49 Estimated GFR > 60 Glucose 92 Calcium 8.9 Magnesium 2.1 Total Bilirubin 0.4 AST 40 H ALT 32 Alkaline Phosphatase 88 Total Protein 6.0 L Albumin 3.1 L
--- NOTE | 2025-01-04 12:11 | P.PNIM_ITS ---
Progress Note: A&P Assessment and Plan (1) Hypoxia: Code(s): R09.02 - Hypoxemia Status: Acute (2) Incisional hernia: Qualifiers: Obstruction and gangrene presence: without obstruction or gangrene Qualified Code(s): K43.2 - Incisional hernia without obstruction or gangrene Code(s): K43.2 - Incisional hernia without obstruction or gangrene Status: Acute (3) Encounter for surgical aftercare following surgery on the digestive system: Code(s): Z48.815 - Encounter for surgical aftercare following surgery on the digestive system Status: Acute (4) JACOB (generalized anxiety disorder): Code(s): F41.1 - Generalized anxiety disorder Status: Acute (5) Depression: Code(s): F32.A - Depression, unspecified Status: Acute Plan patient is 74 y/o female has a elective incision incarcerated hernia, the surgery was uneventful however post surgery patient became hypoxic and requiring 8L of oxygen, patient is currently admitted in ICU for observation, patient stats now feels better however still requiring 8L oxygen, hypoxia possibly 2/2 aspiration pneumonia, PE, acute onset of CHF. to further evaluate CTA chest is ordered and will follow up, will monitor patient in the ICU and further recommendation to follow. CTA of chest was negative for PE showed detected bilaterally suggesting pulmonary edema, with multifocal pneumonia less likely. Chest x-ray shows patchy infiltrate, patient is being treated with Zosyn, patient is on RA and being transferred out of ICU to medical floor. Remains clinically stable repeat x-ray shows improvement, will monitor 1 one more day discharge tomorrow. Subjective Date/time seen: 01/04/25 12:11 Interval history: Hypoxia H&P-Narrative: patient is 74 y/o female has a elective incision incarcerated hernia, the surgery was uneventful however post surgery patient became hypoxic and requiring 8L of oxygen, patient is currently admitted in ICU for observation, patient stats now feels better however still requiring 8L oxygen, hypoxia possibly 2/2 aspiration pneumonia, PE, acute onset of CHF. to further evaluate CTA chest is ordered and will follow up, will monitor patient in the ICU and further recommendation to follow. CTA of chest was negative for PE showed detected bilaterally suggesting pulmonary edema, with multifocal pneumonia less likely. Chest x-ray shows patchy infiltrate, patient is being treated with Zosyn, patient is on RA and being transferred out of ICU to medical floor. Remains clinically stable repeat x-ray shows improvement, will monitor 1 one more day discharge tomorrow. Review of Systems Review of Systems: All systems reviewed & are unremarkable except as noted in HPI and below (HPI) Exam Narrative: Patient is comfortable, NAD HEENT: eyes are clear and none icteric LUNGS: Bilateral fair entry with rales and rhonchi HEART: RR S1S2 ABD: BS+, Soft and nontender Lower extremities: no edema SKIN: nonjaundiced Neuro: grossly intact. Objective Data Vital Signs Vital Signs: Vital Signs - 24 hr 01/03/25 14:35 01/03/25 14:35 01/03/25 14:42 Temperature 36.8 C Pulse Rate 83 83 79 Respiratory Rate 12 18 12 Blood Pressure 126/57 L Pulse Oximetry 97 Oxygen Delivery Oxygen Flow Rate 01/03/25 16:00 01/03/25 20:00 01/03/25 20:00 Temperature Pulse Rate 93 85 Respiratory Rate Blood Pressure Pulse Oximetry 96 Oxygen Delivery Nasal Cannula Oxygen Flow Rate 3 01/03/25 20:37 01/03/25 20:43 01/03/25 20:47 Temperature Pulse Rate 91 91 88 Respiratory Rate 16 16 Blood Pressure Pulse Oximetry 95 Oxygen Delivery Nasal Cannula Oxygen Flow Rate 3 01/03/25 21:40 01/04/25 00:00 01/04/25 04:00 Temperature 36.5 C Pulse Rate 96 85 78 Respiratory Rate 16 Blood Pressure 110/59 L Pulse Oximetry 96 Oxygen Delivery Oxygen Flow Rate 01/04/25 06:44 01/04/25 08:04 01/04/25 08:04 Temperature 36.5 C Pulse Rate 87 80 Respiratory Rate 16 16 Blood Pressure 123/53 L Pulse Oximetry 93 99 Oxygen Delivery Nasal Cannula Oxygen Flow Rate 3 01/04/25 08:18 01/04/25 08:46 Temperature Pulse Rate 86 Respiratory Rate 16 Blood Pressure Pulse Oximetry 91 Oxygen Delivery Nasal Cannula Oxygen Flow Rate 1 Intake/Output Intake/Output: Intake & Output 01/01/25 01/02/25 01/03/25 01/04/25 23:59 23:59 23:59 23:59 Intake Total 4324 676 7186 500 Output Total 250 500 Balance 6621 418 5829 500 Meds/Results Medications: Active Medications Generic Name Dose Route Start Last Admin Trade Name Freq PRN Reason Stop Dose Admin Acetaminophen 650 mg 01/01/25 17:42 01/04/25 06:49 Acetaminophen 325 Mg Tablet PO 650 mg Q4H PRN Administration Mild Pain (1-3) or Fever Hydrocodone Bitart/Acetaminophen 1 tab 01/01/25 17:42 Hydrocodone/Acetaminophen (*Crx) 10-325 Mg Tablet PO Q4H PRN Pain Rated 7-10 Hydrocodone Bitart/Acetaminophen 1 tab 01/01/25 17:42 01/01/25 19:02 Hydrocodone/Acetaminophen (*Crx) 5-325 Mg Tablet PO 1 tab Q4H PRN Administration Pain Rated 4-6 Albuterol/Ipratropium 3 ml 01/01/25 20:00 01/04/25 08:03 Ipratropium 0.5 Mg/Albuterol Sulfate 2.5 Mg Ampul.Neb 3 Ml INHALATION 3 ml Q6HRT ZORAIDA Administration Atorvastatin Calcium 10 mg 01/03/25 10:45 01/04/25 09:18 Atorvastatin 10 Mg Tablet PO 10 mg DAILY ZORAIDA Administration Bupropion HCl 150 mg 01/03/25 10:45 01/04/25 09:18 Bupropion Hcl Xl (24 Hr) 150 Mg Tabcr PO 150 mg DAILY ZORAIDA Administration Buspirone HCl 5 mg 01/03/25 10:45 01/04/25 09:18 Buspirone Hcl 5 Mg Tablet PO 5 mg BID ZORAIDA Administration Cyclobenzaprine HCl 10 mg 01/03/25 10:20 01/03/25 11:11 Cyclobenzaprine Hcl 10 Mg Tablet PO 10 mg TID PRN Administration Leg cramps Donepezil HCl 5 mg 01/03/25 21:00 01/03/25 20:44 Donepezil Hcl 5 Mg Tablet PO 5 mg QHS ZORAIDA Administration Enoxaparin Sodium 40 mg 01/02/25 09:00 01/04/25 09:18 Enoxaparin 40 Mg/0.4 Ml Syringe SUB-Q 40 mg DAILY ZORAIDA Administration Escitalopram Oxalate 20 mg 01/03/25 10:45 01/04/25 09:19 Escitalopram Oxalate 10 Mg Tablet PO 20 mg DAILY ZORAIDA Administration Piperacillin/Tazobactam/Dextrose 3.375 gm in 50 mls @ 100 mls/hr 01/01/25 17:35 01/04/25 06:31 Zosyn 3.375 Gm/Ns 50 Ml IVPB Infused Q6HR ZORAIDA Infusion Lactobacillus Acidophilus 1 tablet 01/03/25 17:00 01/04/25 09:18 Acidophilus/Bulgaricus Chewable Tablet PO 1 tablet DAILY ZORAIDA Administration Levothyroxine Sodium 75 mcg 01/04/25 06:30 01/04/25 06:11 Levothyroxine Sodium 75 Mcg Tablet PO 75 mcg DAILY@0630 ZORAIDA Administration Melatonin 3 mg 01/03/25 21:00 01/03/25 20:44 Melatonin 3 Mg Tablet PO 3 mg QHS ZORAIDA Administration Multivitamins/Calcium 1 tablet 01/03/25 10:45 01/04/25 09:18 Therapeutic Multivitamins/Minerals Tab (*Bkc) PO 1 tablet DAILY ZORAIDA Administration Ondansetron HCl 4 mg 01/01/25 15:24 01/02/25 18:34 Ondansetron Inj 4 Mg/2 Ml Vial IV PUSH 4 mg Q6H PRN Administration Nausea And Vomiting Pantoprazole Sodium 40 mg 01/02/25 09:00 01/04/25 09:18 Pantoprazole Sodium Iv 40 Mg Vial IV PUSH 40 mg QAM ZORAIDA Administration Vitamin D 2,000 units 01/03/25 10:45 01/04/25 09:18 Cholecalciferol 1,000 Units Tablet PO 2,000 units DAILY ZORAIDA Administration Radiology Results: ITS Impressions Head CT 01/01/25 19:42 Impression: No acute intracranial hemorrhage or suspicious mass effect. Chest CTA 01/01/25 19:43 IMPRESSION: No pulmonary embolus. No thoracic aortic dissection. Findings detected bilaterally suggesting pulmonary edema, with multifocal pneumonia less likely. Chest X-Ray 01/04/25 09:45 Impression: 1: Bibasilar airspace disease with improvement compared with 01/02/2025. Differ ential diagnosis includes residual edema, pneumonia or atelectasis. Labs Labs: Laboratory Results - last 24 hr 01/04/25 04:45 WBC 6.6 RBC 3.25 L Hgb 10.4 L Hct 34.4 L MCV 105.8 H MCH 32.0 MCHC 30.2 L RDW 13.3 Plt Count 182 MPV 9.9 Sodium 143 Potassium 3.8 Chloride 108 H Carbon Dioxide 32 H Anion Gap 3 L BUN 13 Creatinine 0.82 Estim Creat Clear Calc 49 Estimated GFR > 60 Glucose 92 Calcium 8.9 Magnesium 2.1 Total Bilirubin 0.4 AST 40 H ALT 32 Alkaline Phosphatase 88 Total Protein 6.0 L Albumin 3.1 L Quality VTE Prophylaxis VTE prophylaxis: pharmacologic ordered
[2025-01-04] MEDS: CALCIUM CARBONATE (TUMS) 500 MG (200 MG ELEMENTAL) PO (15:47)
[2025-01-04] MEDS: DONEPEZIL HCL 5 MG TABLET PO (21:44)
[2025-01-04] MEDS: MELATONIN 3 MG TABLET PO (21:44)
[2025-01-05] VITALS (10 sets, daily range): BP systolic 135; BP diastolic 56; PULSE 79–93; RESP 18–20; TEMP 37.1; O2SAT 94–98
[2025-01-05] MEDS: PIPERACILLN/TAZ 3.375GM/NS50ML 3.375 GM/50 ML BAG IVPB ×2 (00:42→06:23)
[2025-01-05] MEDS: IPRATROPIUM 0.5 MG/ALBUTEROL SULFATE 2.5 MG AMPUL.NEB 3 ML INHALATION ×3 (03:42→13:54)
[2025-01-05 05:03] LABS: Hematocrit 34.7 % (37.0-47.0); Hemoglobin 10.6 g/dL (12.0-15.0); Mean Corpuscular HGB Conc 30.5 g/dl (32-36); Mean Corpuscular Hemoglobin 31.5 pg (26-34); Mean Corpuscular Volume 103.3 fl (80-100); Mean Platelet Volume 9.7 fl (7.4-10.4); Platelet Count Result 205 k/mm3 (150-375); Red Blood Count 3.36 M/mm3 (4.2-5.4); Red Cell Distribution Width 13.2 % (11.5-14.5); White Blood Count 5.3 K/mm3 (4.5-10.0)
[2025-01-05 05:11] LABS: Alanine Aminotransferase 39 U/L (6-35); Albumin Level 3.2 g/dL (3.5-5.1); Alkaline Phosphatase 133 U/L (38-126); Anion Gap 4 mmol/L (4-12); Aspartate Amino Transferase 46 U/L (14-36); Bilirubin,Total 0.4 mg/dL (0.2-1.3); Blood Urea Nitrogen 12 mg/dL (7-17); Calcium 8.8 mg/dL (8.4-10.2); Carbon Dioxide 28 mmol/L (22-30); Chloride 110 mmol/L (98-107); Estimated CRCL calculation 54 ml/min; Estimated Glomerular Filt Rate > 60; Glucose 99 mg/dL (65-110); Magnesium 2.1 mg/dL (1.6-2.3); Potassium 3.2 mmol/L (3.4-5.0); Sodium 142 mmol/L (137-145)
[2025-01-05] MEDS: LEVOTHYROXINE SODIUM 75 MCG TABLET PO (06:24)
--- NOTE | 2025-01-05 08:34 | PM.PNGS ---
Progress Note: A&P Assessment and Plan (1) Incisional hernia: Qualifiers: Obstruction and gangrene presence: without obstruction or gangrene Qualified Code(s): K43.2 - Incisional hernia without obstruction or gangrene Code(s): K43.2 - Incisional hernia without obstruction or gangrene Status: Acute Assessment and Plan: doing well, cont routine postop care, home c po analgesia, binder, light activity restrictions, f/u 2 wks (2) Hypoxia: Code(s): R09.02 - Hypoxemia Status: Acute Assessment and Plan: off O2, hopefully home today Subjective Subjective Date/Time Seen: 01/05/25 08:34 Interval history: feels good, some mild incisional soreness Review of Systems Review of Systems: All systems reviewed & are unremarkable except as noted in HPI and below Exam Const: General: cooperative, comfortable and no acute distress Resp: Auscultation: clear to auscultation bilaterally Cardio: Rate: regular rate Rhythm: regular rhythm GI: Inspection: normal to inspection, non-distended and incision GI Palp: Yes abdominal tenderness and Yes Soft to palpation Objective Data Vital Signs Vital Signs: Vital Signs - 24 hr 01/04/25 08:46 01/04/25 12:00 01/04/25 13:50 Temperature Pulse Rate 90 81 Respiratory Rate 16 Blood Pressure Pulse Oximetry 91 Oxygen Delivery Nasal Cannula Oxygen Flow Rate 1 Fraction of Inspired Oxygen 01/04/25 14:00 01/04/25 14:00 01/04/25 16:00 Temperature 36.6 C Pulse Rate 89 86 94 Respiratory Rate 16 16 Blood Pressure 112/54 L Pulse Oximetry 92 Oxygen Delivery Oxygen Flow Rate Fraction of Inspired Oxygen 01/04/25 20:00 01/04/25 20:01 01/04/25 20:46 Temperature 36.5 C Pulse Rate 84 80 82 Respiratory Rate 18 18 Blood Pressure 120/50 L Pulse Oximetry 98 Oxygen Delivery Oxygen Flow Rate Fraction of Inspired Oxygen 01/04/25 21:00 01/04/25 21:06 01/04/25 21:12 Temperature Pulse Rate 85 88 Respiratory Rate 16 16 Blood Pressure Pulse Oximetry 99 94 Oxygen Delivery Room Air High Flow Nasal Cannula Room Air Oxygen Flow Rate 1 Fraction of Inspired Oxygen 21 01/05/25 00:00 01/05/25 00:39 01/05/25 04:00 Temperature Pulse Rate 93 88 Respiratory Rate Blood Pressure Pulse Oximetry 94 Oxygen Delivery Oxygen Flow Rate Fraction of Inspired Oxygen 01/05/25 04:09 01/05/25 08:28 01/05/25 08:28 Temperature 37.1 C Pulse Rate 91 88 Respiratory Rate 18 20 Blood Pressure 135/56 L Pulse Oximetry 94 98 Oxygen Delivery Room Air Oxygen Flow Rate Fraction of Inspired Oxygen Intake/Output Intake/Output: Intake & Output 01/02/25 01/03/25 01/04/25 01/05/25 23:59 23:59 23:59 23:59 Intake Total 797 1020 1440 390 Output Total 500 Balance 297 1020 1440 390 Meds/Results Medications: Active Medications Generic Name Dose Route Start Last Admin Trade Name Freq PRN Reason Stop Dose Admin Acetaminophen 650 mg 01/01/25 17:42 01/04/25 21:43 Acetaminophen 325 Mg Tablet PO 650 mg Q4H PRN Administration Mild Pain (1-3) or Fever Hydrocodone Bitart/Acetaminophen 1 tab 01/01/25 17:42 Hydrocodone/Acetaminophen (*Crx) 10-325 Mg Tablet PO Q4H PRN Pain Rated 7-10 Hydrocodone Bitart/Acetaminophen 1 tab 01/01/25 17:42 01/01/25 19:02 Hydrocodone/Acetaminophen (*Crx) 5-325 Mg Tablet PO 1 tab Q4H PRN Administration Pain Rated 4-6 Albuterol/Ipratropium 3 ml 01/01/25 20:00 01/05/25 08:27 Ipratropium 0.5 Mg/Albuterol Sulfate 2.5 Mg Ampul.Neb 3 Ml INHALATION 3 ml Q6HRT ZORAIDA Administration Atorvastatin Calcium 10 mg 01/03/25 10:45 01/04/25 09:18 Atorvastatin 10 Mg Tablet PO 10 mg DAILY ZORAIDA Administration Bupropion HCl 150 mg 01/03/25 10:45 01/04/25 09:18 Bupropion Hcl Xl (24 Hr) 150 Mg Tabcr PO 150 mg DAILY ZORAIDA Administration Buspirone HCl 5 mg 01/03/25 10:45 01/04/25 17:46 Buspirone Hcl 5 Mg Tablet PO 5 mg BID ZORAIDA Administration Calcium Carbonate 200 mg 01/04/25 15:25 01/04/25 15:47 Calcium Carbonate (Tums) 500 Mg (200 Mg Elemental) PO 200 mg Q6H PRN Administration Indigestion Cyclobenzaprine HCl 10 mg 01/03/25 10:20 01/03/25 11:11 Cyclobenzaprine Hcl 10 Mg Tablet PO 10 mg TID PRN Administration Leg cramps Donepezil HCl 5 mg 01/03/25 21:00 01/04/25 21:44 Donepezil Hcl 5 Mg Tablet PO 5 mg QHS ZORAIDA Administration Enoxaparin Sodium 40 mg 01/02/25 09:00 01/04/25 09:18 Enoxaparin 40 Mg/0.4 Ml Syringe SUB-Q 40 mg DAILY ZORAIDA Administration Escitalopram Oxalate 20 mg 01/03/25 10:45 01/04/25 09:19 Escitalopram Oxalate 10 Mg Tablet PO 20 mg DAILY ZORAIDA Administration Piperacillin/Tazobactam/Dextrose 3.375 gm in 50 mls @ 100 mls/hr 01/01/25 17:35 01/05/25 06:53 Zosyn 3.375 Gm/Ns 50 Ml IVPB Infused Q6HR ZORAIDA Infusion Lactobacillus Acidophilus 1 tablet 01/03/25 17:00 01/04/25 09:18 Acidophilus/Bulgaricus Chewable Tablet PO 1 tablet DAILY ZORAIDA Administration Levothyroxine Sodium 75 mcg 01/04/25 06:30 01/05/25 06:24 Levothyroxine Sodium 75 Mcg Tablet PO 75 mcg DAILY@0630 ZORAIDA Administration Melatonin 3 mg 01/03/25 21:00 01/04/25 21:44 Melatonin 3 Mg Tablet PO 3 mg QHS ZORAIDA Administration Multivitamins/Calcium 1 tablet 01/03/25 10:45 01/04/25 09:18 Therapeutic Multivitamins/Minerals Tab (*Bkc) PO 1 tablet DAILY ZORAIDA Administration Ondansetron HCl 4 mg 01/01/25 15:24 01/02/25 18:34 Ondansetron Inj 4 Mg/2 Ml Vial IV PUSH 4 mg Q6H PRN Administration Nausea And Vomiting Pantoprazole Sodium 40 mg 01/02/25 09:00 01/04/25 09:18 Pantoprazole Sodium Iv 40 Mg Vial IV PUSH 40 mg QAM ZORAIDA Administration Vitamin D 2,000 units 01/03/25 10:45 01/04/25 09:18 Cholecalciferol 1,000 Units Tablet PO 2,000 units DAILY ZORAIDA Administration Radiology Results: ITS Impressions Head CT 05/08/25 19:42 Impression: No acute intracranial hemorrhage or suspicious mass effect. Chest CTA 01/01/25 19:43 IMPRESSION: No pulmonary embolus. No thoracic aortic dissection. Findings detected bilaterally suggesting pulmonary edema, with multifocal pneumonia less likely. Chest X-Ray 01/04/25 09:45 Impression: 1: Bibasilar airspace disease with improvement compared with 01/02/2025. Differential diagnosis includes residual edema, pneumonia or atelectasis. Labs Labs: Laboratory Results - last 24 hr 01/05/25 04:45 WBC 5.3 RBC 3.36 L Hgb 10.6 L Hct 34.7 L MCV 103.3 H MCH 31.5 MCHC 30.5 L RDW 13.2 Plt Count 205 MPV 9.7 Sodium 142 Potassium 3.2 L Chloride 110 H Carbon Dioxide 28 Anion Gap 4 BUN 12 Creatinine 0.74 Estim Creat Clear Calc 54 Estimated GFR > 60 Glucose 99 Calcium 8.8 Magnesium 2.1 Total Bilirubin 0.4 AST 46 H ALT 39 H Alkaline Phosphatase 133 H Total Protein 6.0 L Albumin 3.2 L
[2025-01-05] MEDS: POTASSIUM CHLORIDE 20 MEQ ER TABLET 40 MEQ PO (09:27)
[2025-01-05] MEDS: CHOLECALCIFEROL 1,000 UNITS TABLET 2000 UNITS PO (09:28)
[2025-01-05] MEDS: busPIRone HCL 5 MG TABLET PO (09:28)
[2025-01-05] MEDS: ATORVASTATIN 10 MG TABLET PO (09:28)
[2025-01-05] MEDS: ESCITALOPRAM OXALATE 10 MG TABLET 20 MG PO (09:28)
[2025-01-05] MEDS: THERAPEUTIC MULTIVITAMINS/MINERALS TAB (*BKC) 1 TABLET PO (09:28)
[2025-01-05] MEDS: buPROPion HCL XL (24 HR) 150 MG TABCR PO (09:28)
[2025-01-05] MEDS: ACIDOPHILUS/BULGARICUS CHEWABLE TABLET 1 TABLET PO (09:28)
[2025-01-05] MEDS: ACETAMINOPHEN 325 MG TABLET 650 MG PO (09:29)
[2025-01-05] MEDS: ENOXAPARIN 40 MG/0.4 ML SYRINGE SUB-Q (09:31)
[2025-01-05] MEDS: PANTOPRAZOLE SODIUM IV 40 MG VIAL IV PUSH (09:47)
--- NOTE | 2025-01-05 10:07 | P.DS_ITS ---
DS: Admitting Diagnosis Discharge Date 01/05/25 Admitting Diagnosis Hypoxia DS: Discharge Diagnosis Discharge Diagnosis (1) Hypoxia: Code(s): R09.02 - Hypoxemia Status: Acute (2) Incisional hernia: Qualifiers: Obstruction and gangrene presence: without obstruction or gangrene Qualified Code(s): K43.2 - Incisional hernia without obstruction or gangrene Code(s): K43.2 - Incisional hernia without obstruction or gangrene Status: Acute (3) Encounter for surgical aftercare following surgery on the digestive system: Code(s): Z48.815 - Encounter for surgical aftercare following surgery on the digestive system Status: Acute (4) JACOB (generalized anxiety disorder): Code(s): F41.1 - Generalized anxiety disorder Status: Acute (5) Depression: Code(s): F32.A - Depression, unspecified Status: Acute Plan patient is 74 y/o female has a elective incision incarcerated hernia, the surgery was uneventful however post surgery patient became hypoxic and requiring 8L of oxygen, patient is currently admitted in ICU for observation, patient stats now feels better however still requiring 8L oxygen, hypoxia possibly 2/2 aspiration pneumonia, PE, acute onset of CHF. to further evaluate CTA chest is ordered and will follow up, will monitor patient in the ICU and further recommendation to follow. CTA of chest was negative for PE showed detected bilaterally suggesting pulmonary edema, with multifocal pneumonia less likely. Chest x-ray shows pat dino infiltrate, patient is being treated with Zosyn, patient is on RA and being transferred out of ICU to medical floor. Remains clinically stable repeat x-ray shows improvement, today patient feels better, seen by her surgeon, clinically stable, will discharge patient home today. DS: Summary Hospital Course Hospital Course: patient is 74 y/o female has a elective incision incarcerated hernia, the surgery was uneventful however post surgery patient became hypoxic and requiring 8L of oxygen, patient is currently admitted in ICU for observation, patient stats now feels better however still requiring 8L oxygen, hypoxia possibly 2/2 aspiration pneumonia, PE, acute onset of CHF. to further evaluate CTA chest is ordered and will follow up, will monitor patient in the ICU and further recommendation to follow. CTA of chest was negative for PE showed detected bilaterally suggesting pulmonary edema, with multifocal pneumonia less likely. Chest x-ray shows patchy infiltrate, patient is being treated with Zosyn, patient is on RA and being transferred out of ICU to medical floor. Remains clinically stable repeat x-ray shows improvement, today patient feels better, seen by her surgeon, clinically stable, will discharge patient home today. Time Spent with Patient Time attestation: Total time spent providing and/or coordinating discharge services: Exam Narrative: Patient is comfortable, NAD HEENT: eyes are clear and none icteric LUNGS: Bilateral fair entry with rales and rhonchi HEART: RR S1S2 ABD: BS+, Soft and nontender Lower extremities: no edema SKIN: nonjaundiced Neuro: grossly intact. DS: Data Data Completed and Pending Labs on day of discharge: Labs from last 24 hours 01/05/25 04:45 WBC 5.3 RBC 3.36 L Hgb 10.6 L Hct 34.7 L MCV 103.3 H MCH 31.5 MCHC 30.5 L RDW 13.2 Plt Count 205 MPV 9.7 Sodium 142 Potassium 3.2 L Chloride 110 H Carbon Dioxide 28 Anion Gap 4 BUN 12 Creatinine 0.74 Estim Creat Clear Calc 54 Estimated GFR > 60 Glucose 99 Calcium 8.8 Magnesium 2.1 Total Bilirubin 0.4 AST 46 H ALT 39 H Alkaline Phosphatase 133 H Total Protein 6.0 L Albumin 3.2 L Discharge Plan Discharge Attending physician on discharge: Elsa Benavides Consulting providers: Kathy Mueller; Tito Jose; Cristo Choi; Reba Mo; Cheri Pa; Sundeep Meraz; Jailyn Beach; Dawit Calvin Discharging Clinician: Kathy Mueller Patient Disposition: Home Activity: may shower and no straining Diet: as tolerated Wound Care Instructions: incision open to air Discharge Instructions: DISCHARGE INSTRUCTION SHEET FOR HERNIA, GALLBLADDER AND APPENDIX SURGERIES DR. BENAVIDES PATIENT TO TAKE HOME 1. May shower in 24 hours, no soaking in bath x 2weeks. 2. Call office for: * Wound increasingly painful or bleeding * Vomiting * Fever of greater than 101 degrees 3. If no bowel movement for three days, take 1 oz. (30 ml) Milk of Magnesia or MiraLax 17g 1 to 2 times daily. 4. No heavy lifting > 10-15 pounds x 6 weeks for hernia repairs and 2 weeks for laparoscopic cholecystectomy or appendectomy. 5. No driving for 3 days or while taking narcotic pain medications. 6. Ice to surgical site for 48 hours (30 min on, then 30 min off). 7. Up walking 10-30 minutes three times per day. 8. Resume previous home medications. 9. Follow-up 10-14 days in office for wound check or as previously scheduled. ([id number]) 10. Oral pain medications prescription to be sent to pharmacy. Take Tylenol 500mg every 6 hours and Ibuprofen 600mg every 6 hours for the first 2 days, then as needed. 11. NUTRITION: Start out by drinking fluids and increase your diet as tolerated. If you experience nausea, try dry toast, crackers, and 7-UP. If nausea or vomiting persists, contact your surgeon’s office. 12. Gallbladders-Low Fat Diet for 2 weeks (send care note of low fat diet) 13. Inguinal Hernias-wear scrotal support for 48 hours 14. Abdominal Hernias-if sent home with abdominal binder, wear for the first 2 weeks (may remove to shower or at night to sleep). Patient to follow discharge care instruction from her surgeon and follow up as scheduled. patient to follow up with her primary care provider as soon as possible. patient is instructed if any symptoms worsen to go to nearest ER. Revised 08/2020 Patient Language: Slovak Stand Alone Forms: General Discharge Instructions Follow-up/Referrals: Priyank Bansal MD [Primary Care Provider] - Elsa Benavides MD [Physician] - 2 Weeks Discharge Medications: New hydrocodone-acetaminophen 5-325 mg tablet 1 tablet PO Q6H PRN (Reason: pain) Qty: 30 0RF docusate sodium [Colace] 100 mg capsule 100 mg PO BID Qty: 30 0RF amoxicillin-pot clavulanate [Augmentin] 500-125 mg tablet 1 tablet PO Q8H Qty: 7 0RF Continued levothyroxine 75 mcg capsule 75 mcg PO DAILY Qty: 30 0RF Patient Comments: QAM coenzyme Q10 [CoQ-10] 100 mg capsule 100 mg PO DAILY Qty: 30 0RF melatonin 3 mg capsule 3 mg PO QHS Qty: 30 0RF bupropion HCl [Wellbutrin XL] 150 mg tablet extended release 24 hr 150 mg PO DAILY Qty: 90 1RF Patient Comments: QAM Probiotic 3 billion cell capsule 3,000 mmu cells PO DAILY Rx Instructions: administer with a meal cholecalciferol (vitamin D3) 50 mcg (2,000 unit) capsule 2,000 unit PO DAILY Hair,Skin and Nails Tablet 1 tablet PO DAILY [id number] Tablet 1 tablet PO DAILY multivitamin Tablet 1 tablet PO DAILY donepezil [Aricept] 5 mg tablet 5 mg PO QHS Qty: 90 2RF buspirone 5 mg tablet 5 mg PO BID Qty: 60 5RF escitalopram oxalate 20 mg tablet 20 mg PO DAILY Qty: 90 1RF Patient Comments: QAM cyclobenzaprine 10 mg tablet 10 mg PO TID PRN (Reason: Leg cramps) Qty: 90 0RF atorvastatin 10 mg tablet 10 mg PO DAILY Qty: 90 2RF Date of admission: 01/01/25 14:53 Primary Care Provider: Priyank Bansal Admitting Provider: Elsa Benavides Attending physician on admission: Kathy Mueller Condition: Stable
== END 2025-01-05 15:18 | disposition home or self-care (01) | DRG 981 ==
LOC: ANH2MED 01-05 10:06 → ANHICU 01-06 09:56
PROVIDERS: Internal Medicine; Admitting Provider Surgery; PCP Family Medicine; Visit Provider Family Medicine
PROC: 0WUF4JZ Supplement Abdominal Wall with Synthetic Substitute, Percutaneous Endoscopic Approach (ICD-10-PCS; principal; 2025-01-01 07:30)
DX: J95.89 Other postprocedural complications and disorders of respiratory system, not elsewhere classified (principal); J69.0 Pneumonitis due to inhalation of food and vomit; J98.11 Atelectasis; K43.0 Incisional hernia with obstruction, without gangrene; I97.131 Postprocedural heart failure following other surgery; R09.02 Hypoxemia; I50.9 Heart failure, unspecified; K66.0 Peritoneal adhesions (postprocedural) (postinfection); E03.9 Hypothyroidism, unspecified; E78.5 Hyperlipidemia, unspecified; M85.80 Other specified disorders of bone density and structure, unspecified site; F41.1 Generalized anxiety disorder; F32.A Depression, unspecified
CPT/HCPCS: 36415; 36600; 70450; 71045; 71046; 71275; 80053; 81001; 82805; 83735; 83880; 84100; 84145; 84443; 85018; 85025; 85027; 87637; 87641; 93005; 94640; 97161; 97165; A9270; C1781; C8929; J0690; J1100; J1650; J1885; J2405; J2470; J2543; J2704; J3010; J7030; J7120; Q9957; Q9967

== ENCOUNTER 2025-08-05 09:45 | Outpatient (CLI) | payer MEDICARE, BC, SELFPAY ==
--- NOTE | ~2025-08-05 | MM_ITS ---
EXAMINATION: MM screening bertha BI w stephanie HISTORY: Screening. TECHNIQUE: Craniocaudal and mediolateral oblique 3-D tomosynthesis images were obtained and synthetic 2-D images were generated. CAD analysis was submitted and interpreted. COMPARISON: 2023, 2022, and 2021. BREAST PARENCHYMAL COMPOSITION: Not Dense: The breasts are almost entirely fatty FINDINGS: No suspicious masses are seen. There are no suspicious calcifications. No unexplained architectural distortion is seen. There are no skin or nipple abnormalities identified. There is no adenopathy seen on the images submitted. IMPRESSION: No mammographic evidence to suggest malignancy is seen. The patient may return to screening mammography as per ACR guidelines. BI-RADS 1 - Negative. Reviewed, dictated and finalized at location C. L OPERATOR
== END 2025-08-05 09:46 | disposition home or self-care (01) ==
LOC: MICIMG 09:46
PROVIDERS: PCP Family Medicine; Visit Provider Obstetrics & Gynecology Gynecology
DX: Z12.31 Encounter for screening mammogram for malignant neoplasm of breast (principal)
CPT/HCPCS: 77063; 77067